=== PATIENT | female | born 1980 | race Caucasian/White ===

== ENCOUNTER → 2020-04-23 13:07 | Outpatient (BNVA) | payer OTHER, MEDICAID, SELFPAY | PROVIDERS: PCP Internal Medicine; Referring Provider Internal Medicine; Visit Provider Internal Medicine | DX: Z76.89 Persons encountering health services in other specified circumstances (principal) ==

== ENCOUNTER → 2020-05-13 08:38 | Outpatient (REF) | payer OTHER, MEDICAID, SELFPAY ==
--- NOTE | 2020-05-13 08:44 | CA_ITS ---
Transthoracic Echocardiogram Patient (Last, First, Middle): Abibe Salas, Gender: Female Date of : 1980 Age: 40 Procedure Date: 05/13/2020 Procedure Type: Transthoracic Echocardiogram Location: OP Height: 160.02 cm Weight: 83.92 kg BSA: 1.87 m2 Heart Rate: bpm BP: 122 / 80 mmHg Groundskeeping Maintenance: Maria Ines MD: Dinh Orlando MD Gas Mask Inspector: Terrence Louise MD Symptoms: R07.2 - Precordial pain Study Quality: Good ECG Rhythm: Sinus Conclusions: - Normal study Findings Left Ventricle Normal left ventricular size, thickness, and systolic function. The visually estimated ejection fraction is between 55-60%. Diastolic function is normal for age. Right Ventricle Normal right ventricular cavity size and systolic function. Atria Both atria are normal in size. There is no evidence of interatrial shunt. Aortic Valve Normal aortic valve structure and function. There is no aortic valve stenosis. There is no aortic valve regurgitation. Mitral Valve Normal mitral valve structure and function. There is trace mitral valve regurgitation. There is no mitral valve stenosis. Pulmonic Valve The pulmonic valve is likely normal. Tricuspid Valve Normal tricuspid valve structure. There is trace tricuspid valve regurgitation. The right ventricular systolic pressure is normal. The right ventricular systolic pressure is 25 mmHg. Normal right atrial pressure. There is no evidence of pulmonary hypertension. Great Vessels All visible segments of the aorta are normal in size. The pulmonary artery was not well visualized. Venous The inferior vena cava is normal in size and collapses greater than 50% with inspiration. Pericardium/Pleural There is no evidence of pericardial effusion. Prior Study Comparison No prior study available for comparison. Measurements 2D Linear Measurements RVIDd: 2.77 RVIDd Index: 1.48 IVSd: 0.78 0.6-0.9/0.6-1.0 cm LVIDd: 5.28 3.9-5.3/4.2-5.9 cm LVIDd Index: 2.82 2.4-3.2/2.2-3.1 cm/m2 LVIDs: 3.56 2.0-3.6 cm LVPWd: 1.16 0.7-1.1 cm Ao Root: 2.80 2.1-3.5 cm LA Diam: 4.30 2.7-3.8/3.0-4.0 cm LAIDs Index: 2.30 1.5-2.3 cm/m2 LV Mass: 237.69 67-162/88-224 g LV Mass Index: 127.10 43-95/49-115 g/m2 LVOT Diam: 2.00 3.0+(-)1.3 cm 2D Systolic Function EF 4C: 53.30 >55% EF 2C: 53.50 >55% EF BiP: 55.90 >55% Mitral Valve MV Pk E: 0.69 MV PK A: 0.68 MV Decel Time: 208.00 E/A: 1.00 E'Lateral: 8.92 E'Medial: 4.90 E/E' Med: 14.10 E/E' Lat: 7.80 Aortic Valve AoV Pk Scott: 1.25 AoV Mn Scott: 0.91 AoV VTI: 0.24 AoV Pk Grad: 6.00 Aov Mn Grad: 4.00 AICHA Cont.VTI: 1.98 LVOT LVOT Pk Scott: 0.77 LVOT Mn Scott: 0.58 LVOT VTI: 0.15 LVOT Pk Grad: 2.00 LVOT Mn Grad: 1.00 LVOT Diam: 2.00 LVOT Area: 3.14 Diastolic Function MV Pk E: 0.69 MV Pk A: 0.68 E/A: 1.00 E'Medial: 4.90 E/E' Med: 14.10 E' Laterial: 8.92 E/E' Lat: 7.80 Tricuspid Valve TR Pk Scott: 2.32 TR Pk Grad: 22.00 RA Press: 3.00 RVSP: 25.00 Great Vessels Aorta Ao Root-2D: 2.80 2.0-3.7 cm Ao Asc: 2.70 2.1-3.4 cm Ao Arch: 2.70 Updated in Other Vendor System with Status of Final Terrence Louise MD electronically signed on 05/13/2020 1:45:05 PM with status of Final
--- NOTE | 2020-05-13 08:44 | CA_ITS ---
Acquisition Time: 2020-05-13 09:10:47 Total Exercise Time: 00:08:23 Test Indications: chest pain Medications: Protocol: YI Max HR: 164 BPM 91% of Pred: 180 BPM Max BP: 156/088 mmHG Max Work Load: 10.1 METS Exercise stress test using Yi protocol, total of 8 min 23 sec. METS 10.1, MHR up to 90 %. Pt tolerated well, denies any anginal sx. EKG without any arrhythmias. No ischemic changes seen during exercise or in recovery period. Normotensive response to exercise. Test reviewed with Dr. Orlando. Referred By: Dinh Orlando Overread By: Ranjan Storm
== END ==
LOC: HO.CARD 08:38
PROVIDERS: Visit Provider Internal Medicine
DX: R07.2 Precordial pain (principal)
CPT/HCPCS: 93017; 93306

== ENCOUNTER → 2020-06-03 08:23 | Outpatient (BNVA) | payer OTHER, MEDICAID, SELFPAY | PROVIDERS: PCP Internal Medicine; Visit Provider Internal Medicine | DX: Z76.89 Persons encountering health services in other specified circumstances (principal) ==

== ENCOUNTER 2021-03-10 14:40 | Outpatient (REF) | payer OTHER, MEDICAID, SELFPAY ==
--- NOTE | ~2021-03-10 | MM_ITS ---
EXAMINATION: MM SCREENING DIGITAL BREAST TOMOSYNTHESIS, BILATERAL CLINICAL INFORMATION: Screening. Asymptomatic. The lifetime risk of breast cancer based on the Tyrer-Cuzick Model is 7.7%. COMPARISON: Mammography: None TECHNIQUE: Digital breast tomosynthesis is performed in both the craniocaudal and mediolateral oblique views along with computer-aided detection (CAD). Synthesized 2D images are generated from the tomosynthesis. FINDINGS: The breasts are heterogeneously dense, which may obscure small masses (ACR BI-RADS breast composition Category c). No suspicious abnormal dominant mass is of microcalcifications is seen within the right breast. Within the anterior superior aspect of the left breast there is a circumscribed density measuring approximately 1.0 x 0.8 cm in size. Ultrasound examination of this region is recommended. MM/MM tomosynthesis screening BI IMPRESSION: 1 cm circumscribed density anterior left breast for which ultrasound is recommended. ASSESSMENT: BI-RADS 0: Incomplete - Need Additional Imaging Evaluation RECOMMENDATION: Routine annual mammography screening. This patient's information was entered into a reminder system with a target due date for their next mammogram.
== END 2021-03-10 14:41 | disposition home or self-care (01) ==
LOC: HO.MAMMO 14:40
PROVIDERS: Visit Provider Internal Medicine
DX: Z12.31 Encounter for screening mammogram for malignant neoplasm of breast (principal)
CPT/HCPCS: 77063; 77067

== ENCOUNTER 2021-03-17 12:46 | Outpatient (REF) | payer OTHER, MEDICAID, SELFPAY ==
--- NOTE | ~2021-03-17 | US_ITS ---
EXAMINATION: US DIAGNOSTIC ULTRASOUND BREAST, LEFT CLINICAL INFORMATION: Recall from baseline mammography for 1 cm circumscribed nodule upper left breast. TC score 8%. COMPARISON: Baseline mammography 03/10/2021. TECHNIQUE: Ultrasound left breast is targeted to the upper outer quadrant. Grayscale imaging and color Doppler are performed without and with harmonics. FINDINGS: The nodularity on mammography corresponds to a simple cyst 2:00 position 4 cm from nipple measuring approximately 1.1 x 0.7 cm. This is anechoic with circumscribed morrison and increased through-transmission of sound. There is another simple cyst 2:00 position 6 cm away and measuring 0.6 cm. There is no focal suspicious finding. There is no solid mass or architectural abnormality. Results are discussed with the patient at time of visit. US/US breast LT limited IMPRESSION: There are 2 simple cysts upper outer left breast, larger measuring 1.1 cm. ASSESSMENT: BI-RADS 2: Benign RECOMMENDATION: Routine annual mammography screening. This patient's information was entered into a reminder system with a target due date for their next mammogram.
== END 2021-03-17 12:47 | disposition home or self-care (01) ==
LOC: HO.MAMMO 12:46
PROVIDERS: Visit Provider Internal Medicine
DX: R92.2 Inconclusive mammogram (principal)
CPT/HCPCS: 76642

== ENCOUNTER 2021-04-05 08:29 | Outpatient (REF) | payer OTHER, MEDICAID, SELFPAY ==
--- NOTE | ~2021-04-05 | XR_ITS ---
EXAMINATION: BILATERAL KNEE AP STANDING. LEFT KNEE 2 VIEWS. CLINICAL INFORMATION: Left knee pain COMPARISON: None TECHNIQUE: AP bilateral knees standing one view. Left knee 2 views. FINDINGS: AP BILATERAL KNEE: There is minimal loss of medial and lateral compartment joint space left knee and medial compartment right knee. No bony erosive changes, acute fracture or dislocation or subluxation seen. LEFT KNEE: There is no visible acute fracture, dislocation or subluxation. The patellofemoral compartment joint space is mildly reduced. No loose body seen. XR/XR knee standing BI IMPRESSION: Mild early degenerative changes involving medial and lateral compartment left knee and medial compartment right knee.
--- NOTE | ~2021-04-05 | XR_ITS ---
EXAMINATION: BILATERAL KNEE AP STANDING. LEFT KNEE 2 VIEWS. CLINICAL INFORMATION: Left knee pain COMPARISON: None TECHNIQUE: AP bilateral knees standing one view. Left knee 2 views. FINDINGS: AP BILATERAL KNEE: There is minimal loss of medial and lateral compartment joint space left knee and medial compartment right knee. No bony erosive changes, acute fracture or dislocation or subluxation seen. LEFT KNEE: There is no visible acute fracture, dislocation or subluxation. The patellofemoral compartment joint space is mildly reduced. No loose body seen. XR/XR knee LT 2V IMPRESSION: Mild early degenerative changes involving medial and lateral compartment left knee and medial compartment right knee.
== END 2021-04-05 08:30 | disposition home or self-care (01) ==
LOC: HO.HOSX 08:29
PROVIDERS: Visit Provider Physician Assistant
DX: M22.2X2 Patellofemoral disorders, left knee (principal)
CPT/HCPCS: 20610; 73560; 73565; J1040

== ENCOUNTER 2021-11-02 14:48 | Outpatient (REF) | payer OTHER, MEDICAID, SELFPAY ==
--- NOTE | ~2021-11-02 | MM_ITS ---
EXAMINATION: MM DIAGNOSTIC DIGITAL BREAST TOMOSYNTHESIS, LEFT US DIAGNOSTIC ULTRASOUND BREAST, LEFT CLINICAL INFORMATION: Pain upper outer left breast for one month, on and off. No palpable mass or discharge. Prior history cysts left breast. TC score 8%. COMPARISON: Mammography: 03/10/2021, targeted left breast ultrasound 03/17/2021. TECHNIQUE: Digital breast tomosynthesis is performed in both the craniocaudal and mediolateral oblique views along with computer-aided detection (CAD). Synthesized 2D images are generated from the tomosynthesis. Ultrasound left breast is targeted to the upper and outer breast. Grayscale imaging and color Doppler are performed without and with harmonics. FINDINGS: Mammography: There are scattered areas of fibroglandular density (ACR BI-RADS breast composition Category b). Parenchymal pattern is similar to prior study. There is a known cyst anterior upper outer left breast with smooth margins, slightly increased in size. There is no interval new dominant mass or architectural abnormality. No abnormal calcifications. The axilla is unremarkable. There is no coarsening of the Manish's ligaments. No skin thickening or retraction. Ultrasound: Ultrasound demonstrates cyst anterior upper outer left breast with circumscribed margins and increased through-transmission of sound measuring 1.3 x 0.9 cm. Prior measurements are 1.0 x 0.8 cm. There is also a small cyst anterior left breast 3:00 position measuring 0.5 x 0.3 cm. There is no cystic or solid mass in the area of patient symptoms. No skin thickening or edema tracking in soft tissue planes or focal duct ectasia. Results are discussed with the patient at time of visit. MM/MM tomosynthesis diagnostic LT IMPRESSION: -No mammographic or ultrasound evidence of malignancy or inflammatory changes. -2 simple cysts anterior left breast outside of the area of symptoms, larger measuring 1.3 x 0.9 cm and smaller measuring 0.5 x 0.3 cm. ASSESSMENT: BI-RADS 2: Benign RECOMMENDATION: 1. Patient's intermittent breast pain should based on the clinical impression. 2. Otherwise, routine annual screening mammography. This patient's information was entered into a reminder system with a target due date for their next mammogram.
== END 2021-11-02 14:49 | disposition home or self-care (01) ==
LOC: HO.MAMMO 14:48
PROVIDERS: PCP Internal Medicine; Visit Provider Internal Medicine
DX: N63.21 Unspecified lump in the left breast, upper outer quadrant (principal)
CPT/HCPCS: 76642; 77061; 77065

== ENCOUNTER 2022-03-16 14:17 | Outpatient (REF) | payer OTHER, MEDICAID, SELFPAY ==
--- NOTE | ~2022-03-16 | MM_ITS ---
EXAMINATION: MM SCREENING DIGITAL BREAST TOMOSYNTHESIS, BILATERAL CLINICAL INFORMATION: Screening. Asymptomatic. The lifetime risk of breast cancer based on the Tyrer-Cuzick Model is 8%. COMPARISON: Mammography: 11/02/2021, 03/10/2021 (baseline); Left breast ultrasound 03/17/2021 and 11/02/2021. TECHNIQUE: Digital breast tomosynthesis is performed in both the craniocaudal and mediolateral oblique views along with computer-aided detection (CAD). Synthesized 2D images are generated from the tomosynthesis. FINDINGS: There are scattered areas of fibroglandular density (ACR BI-RADS breast composition Category b). There are no significant masses, abnormal calcifications, or other abnormalities. No architectural abnormality. There is a smooth oval mass anterior upper outer left breast consistent with simple cyst on prior imaging. The axilla and skin contours are unremarkable. There are no significant changes. MM/MM tomosynthesis screening BI IMPRESSION: No mammographic evidence of malignancy. ASSESSMENT: BI-RADS 2: Benign RECOMMENDATION: Routine annual mammography screening. This patient's information was entered into a reminder system with a target due date for their next mammogram.
== END 2022-03-16 14:18 | disposition home or self-care (01) ==
LOC: HO.MAMMO 14:17
PROVIDERS: PCP Internal Medicine; Visit Provider Internal Medicine
DX: Z12.31 Encounter for screening mammogram for malignant neoplasm of breast (principal)
CPT/HCPCS: 77063; 77067

== ENCOUNTER 2023-03-29 14:16 | Outpatient (REF) | payer OTHER, MEDICAID, SELFPAY | END 2023-03-29 14:17 | disposition home or self-care (01) | LOC: HO.MAMMO 14:16 | PROVIDERS: PCP Internal Medicine; Visit Provider Internal Medicine | DX: Z12.31 Encounter for screening mammogram for malignant neoplasm of breast (principal) | CPT/HCPCS: 77063; 77067 ==

== ENCOUNTER → 2023-03-29 14:30 | Outpatient (BNV) | payer OTHER, MEDICAID, SELFPAY | PROVIDERS: PCP Internal Medicine; Visit Provider Radiology Diagnostic Radiology | DX: Z12.31 Encounter for screening mammogram for malignant neoplasm of breast (principal) | CPT/HCPCS: 77063; 77067 ==

== ENCOUNTER 2023-08-21 11:39 | Outpatient (REF) | payer OTHER, SELFPAY ==
--- NOTE | ~2023-08-21 | XR_ITS ---
EXAMINATION: XR ANKLE, RIGHT CLINICAL INFORMATION: Right ankle injury, pain COMPARISON: None available. TECHNIQUE: AP, lateral, and mortise views of the right ankle. FINDINGS: No fracture. Alignment is anatomic. No erosions. Joint spaces are maintained. Soft tissues are normal. XR/XR ankle RT min 3V IMPRESSION: Normal right ankle.
== END 2023-08-21 11:40 | disposition home or self-care (01) ==
LOC: HO.HHCX 11:39
PROVIDERS: Visit Provider Student in an Organized Health Care Education/Training Program
DX: S99.911A Unspecified injury of right ankle, initial encounter (principal)
CPT/HCPCS: 73610

== ENCOUNTER 2023-09-19 20:05 | Outpatient (REF) | payer OTHER, SELFPAY ==
--- NOTE | ~2023-09-19 | MR_ITS ---
EXAMINATION: MR ANKLE WITHOUT CONTRAST, RIGHT CLINICAL INFORMATION: Pain; patient reports rolled ankle. COMPARISON: X-ray the right ankle August 2023. TECHNIQUE: MRI of the ankle was performed using routine sequences on a high-field scanner. FINDINGS: Subcutaneous soft tissues: Normal. Muscles/tendons: Normal. Plantar fascia: Normal. Neurovascular structures/tarsal tunnel: Normal. Ligaments: Mild heterogeneity of the anterior talofibular ligament compatible with partial tear. Remaining ligaments normal. Bone/cartilage: Talocrural joint: There is subchondral cystic change along the apex of the lateral dome of the talus. This extends over 7 mm transverse and 10 mm AP. There is some minimal subchondral edema surrounding the area of cystic change. Findings compatible with an area of osteochondritis dissecans versus subchondral cystic change related to focal arthrosis. There is additional minimal bone marrow edema versus subchondral cystic change along the posterior rim of the central aspect of the posterior malleolus indicative of minimal focal arthrosis of evolving subchondral contusion. Joint is otherwise unremarkable there is no effusion or loose bodies. Remaining bone and joints are normal. MR/MR ankle RT wo con IMPRESSION: 1. Partial tear of the anterior talofibular ligament. 2. Focal arthrosis versus osteochondritis dissecans along the apex of the lateral dome of the talus. 3. Minimal arthrosis versus evolving subchondral contusion along the posterior rim of the posterior malleolus.
== END 2023-09-19 20:06 | disposition home or self-care (01) ==
LOC: HO.MRI 20:05
PROVIDERS: PCP Internal Medicine; Visit Provider Student in an Organized Health Care Education/Training Program
DX: S93.491A Sprain of other ligament of right ankle, initial encounter (principal)
CPT/HCPCS: 73721

== ENCOUNTER 2023-10-03 08:57 | Outpatient (REF) | payer OTHER, MEDICAID, SELFPAY ==
[2023-10-03 14:27] LABS: Appearance Urine Cloudy; Color Urine Dark Yellow; Glucose Urine UA Negative (Negative); Leukocyte Esterase Urine Negative (Negative); Nitrite Urine Negative (Negative); PH 5.5 (5.0-9.0); Specific Gravity - Urine >= 1.030 (1.005-1.025); Urine Blood Negative (Negative); Urine Ketones Negative (Negative); Urine Protein Trace mg/dL (Neg-Trace)
[2023-10-03 14:30] LABS: Bacteria Urine 3+ (None Seen); Hyaline Casts Urine 0-2 /LPF (0-2); RBC Urine 0-2 /HPF (0-2); WBC Urine 0-5 /HPF (0-5)
[2023-10-04 08:27] LABS: HIV AB/AG Nonreactive (Nonreactive); HIV Num 1 0.06 S/CO (0.00-0.99)
[2023-10-04 10:29] LABS: RPR Rapid Plasma Reagin NON-REACTIVE (NON-REACTIVE)
== END 2023-10-03 08:58 | disposition home or self-care (01) ==
LOC: HO.CHCLDS 08:57
PROVIDERS: Visit Provider Internal Medicine
DX: Z11.4 Encounter for screening for human immunodeficiency virus [HIV] (principal); N76.0 Acute vaginitis
CPT/HCPCS: 36415; 81001; 81513; 86592; 87389

== ENCOUNTER 2024-01-26 14:00 | Outpatient (REF) | payer OTHER, MEDICAID, SELFPAY ==
[2024-01-26 15:49] LABS: Bacterial Vaginosis PCR NEGATIVE (Negative); Candida Group PCR DETECTED (Not Detect); Candida glab krusei PCR NOT DETECTED (Not Detect); Trichomonas vaginalis PCR NOT DETECTED (Not Detect)
[2024-01-26 16:17] LABS: CT PCR NOT DETECTED (Not Detect.); NG PCR NOT DETECTED (Not Detect.)
== END 2024-01-26 14:01 | disposition home or self-care (01) ==
LOC: HO.CHCLNP 14:00
PROVIDERS: Visit Provider Pediatrics
DX: N76.0 Acute vaginitis (principal)
CPT/HCPCS: 0352U; 87491; 87591

== ENCOUNTER 2024-02-08 08:35 | Outpatient (REF) | payer OTHER, MEDICAID, SELFPAY ==
[2024-02-08 14:21] LABS: MANUAL DIFF FLAG NO
[2024-02-08 14:37] LABS: Basophils Percent Auto 0.4 % (0-2); Eosinophils Absolute Auto 0.1 X10*3/uL (0.0-0.4); Eosinophils Percent Auto 1.1 % (0-4); Imm Gran Abs Auto 0.02 X10*3/uL (0.00-0.03); Imm Gran Pct Auto 0.3 % (0.0-0.4); Lymphocytes Absolute Auto 1.5 X10*3/uL (1.2-4.9); Mean Corpuscular HGB Conc 34.1 g/dl (31.0-35.0); Mean Corpuscular Volume 90.7 fL (80.0-98.0); Mean Platelet Volume 11.4 fL (9.4-12.3); Monocytes Absolute Auto 0.5 X10*3/uL (0.1-1.2); Monocytes Percent Auto 6.6 % (2-11); Neutrophils Absolute Auto 5.5 x10*3/uL (2.0-8.3); Neutrophils Percent Auto 71.6 % (45-73); Platelet Count 228 X10*3/uL (160-400); Red Blood Count 4.52 X10*6/uL (4.20-5.50); Red Cell Distribution Width 13.1 % (11.0-16.0); White Blood Count 7.6 X10*3/uL (4.8-10.8)
[2024-02-08 14:58] LABS: Alanine Aminotransferase 24 U/L (0-31); Albumin Level 3.8 g/dL (3.5-5.0); Alkaline Phosphatase 78 U/L (39-117); Anion Gap 14 (12-20); Aspartate Amino Transferase 14 U/L (5-31); Bilirubin Total 0.6 mg/dL (0.0-1.0); Blood Urea Nitrogen 13 mg/dL (9-16); Calcium 9.4 mg/dL (8.4-10.2); Carbon Dioxide 27 mmol/L (22-29); Chloride 106 mmol/L (96-108); Cholesterol 154 mg/dL (<200); Estimated Glomerular Filt Rate > 60; Glucose Random 72 mg/dL (60-115); HDL Cholesterol 49 mg/dL (>40); LDL Cholesterol Calculated 89 mg/dL (<100); Potassium 3.9 mmol/L (3.3-5.1); Sodium 143 mmol/L (135-145); TSH reflex Free T4 1.19 uIU/mL (0.32-4.0); Total Protein 6.2 g/dL (6.5-8.0); Triglycerides 83 mg/dL (<150); Vitamin D 25-OH Total 30.8 ng/mL (>30)
[2024-02-08 15:15] LABS: Folate 3.3 ng/mL (> or = 4.0); Vitamin B12 258 pg/mL (200-900)
[2024-02-09 08:12] LABS: HIV AB/AG Nonreactive (Nonreactive); HIV Num 1 0.07 S/CO (0.00-0.99)
[2024-02-09 08:31] LABS: Syphilis Screen Nonreactive (Nonreactive)
[2024-02-12 13:18] LABS: HCV Log PCR <1.18 NOT DETECTED Log IU/mL (NOT DETECTED); HepC Viral Load <15 NOT DETECTED IU/mL (NOT DETECTED)
== END 2024-02-08 08:36 | disposition home or self-care (01) ==
LOC: HO.CHCLDS 08:35
PROVIDERS: Visit Provider Internal Medicine
DX: Z00.00 Encounter for general adult medical examination without abnormal findings (principal); E55.9 Vitamin D deficiency, unspecified; F41.1 Generalized anxiety disorder
CPT/HCPCS: 36415; 80053; 80061; 82306; 82607; 82746; 84443; 85025; 86780; 87389; 87522

== ENCOUNTER 2024-03-18 11:05 | Emergency (ER) | payer OTHER, MEDICAID, SELFPAY ==
--- NOTE | ~2024-03-18 | CT_ITS ---
EXAMINATION: CT CERVICAL SPINE WITHOUT CONTRAST CLINICAL INFORMATION: Trauma. COMPARISON: None available. TECHNIQUE: Noncontrast computed tomography of the cervical spine was performed. This CT examination was performed using dose optimization techniques as appropriate, variously including the following: *Automated exposure control *Adjustment of mA and/or kV according to patient size (this includes techniques or standardized protocols for targeted exams where dose is matched to indication/reason for exam; i.e. extremities or head) *Use of iterative reconstruction technique DLP: 377 mGy-cm FINDINGS: Cervical spinal alignment is anatomic in the sagittal projection. The vertebral bodies demonstrate preserved stature. There is mild degenerative disc disease at C6-7. There is a small disc osteophyte complex at this level. The atlantooccipital articulations are intact. The C1-C2 relationship is intact. The dens is intact. There is no acute fracture. Prevertebral soft tissue is normal in appearance. Paraspinal soft tissue is normal in appearance. The thyroid gland is normal in appearance. The lung apices are clear. CT/CT cervical spine wo IV con IMPRESSION: No acute osseous cervical spine abnormality. Fleischner guidelines were followed. Electronically signed by: Tavon Cotton DO 03/18/2024 12:45 PM EDT
--- NOTE | ~2024-03-18 | CT_ITS ---
EXAMINATION: CT HEAD WITHOUT CONTRAST CLINICAL INFORMATION: Trauma. COMPARISON: None available. TECHNIQUE: Contiguous axial imaging was performed from the skull base to vertex without intravenous administration of contrast. This CT examination was performed using dose optimization techniques as appropriate, variously including the following: *Automated exposure control *Adjustment of mA and/or kV according to patient size (this includes techniques or standardized protocols for targeted exams where dose is matched to indication/reason for exam; i.e. extremities or head) *Use of iterative reconstruction technique DLP: 1082 mGy-cm FINDINGS: There is no acute intracranial hemorrhage. There is no evidence of acute/subacute cerebral or cerebellar infarction. There is no midline shift or mass effect. No extra-axial fluid collection. The ventricles are normal in size. The orbits are symmetric and within normal limits. The calvarium is intact. Paranasal sinuses and mastoid air cells are clear. CT/CT head/brain wo IV con IMPRESSION: No acute intracranial pathology. Electronically signed by: Tavon Cotton DO 03/18/2024 12:38 PM EDT
[2024-03-18 11:22] VITALS: BP 165/106; PULSE 64; RESP 16; TEMP 36.6; O2SAT 99; BMI 30.4
--- NOTE | 2024-03-18 11:27 | ED.GENADULT ---
HPI - General Adult General Chief complaint: Head Injury Stated complaint: Concussion Time Seen by Provider: 03/18/24 13:44 Source: patient, family, RN notes reviewed and old records reviewed Mode of arrival: ambulatory Limitations: no limitations History of Present Illness ED Provider: Antonina Truong PA-C HPI narrative: 44 yo F with a past medical history of HTN, precordial chest pain, patellofemoral syndrome of the left knee presents to the ED c/o headache, lightheadedness/dizziness, nausea, & right sided neck pain s/p colliding with another player at softball game yesterday afternoon. Patient reports feelings lightheaded immediately after the collision, followed by tunnel vision, denies LOC. Reports a dull pressure located behind the right eye & photophobia. numbness/tingling, paresthesia, blurry vision, double vision, vomiting, fever, chills, and seizures. Denies taking AC Onset (ago): day(s) Related Data Home Medications ?Medication ?Instructions ?Recorded ?Confirmed etonogestrel 68 mg subdermal subdermal 04/23/20 06/03/20 implant (Nexplanon) ibuprofen 800 mg tablet 800 mg PO BID PRN pain 04/23/20 06/03/20 valacyclovir 1 gram tablet 1,000 mg PO Q8H 04/23/20 06/03/20 Previous Rx's ?Medication ?Instructions ?Recorded acetaminophen 500 mg tablet 500 mg PO Q6H PRN fever or pain 03/18/24 (Tylenol Extra Strength) #14 tabs cyclobenzaprine 5 mg tablet 5 mg PO Q8H PRN pain (scale score 03/18/24 7-10) 5 days #14 tabs lidocaine 5 % topical patch 1 patch topical DAILY PRN pain #30 03/18/24 (Lidoderm) ea naproxen 500 mg tablet 500 mg PO BID PRN pain 10 days #20 03/18/24 tabs Allergies Allergy/AdvReac Type Severity Reaction Status Date / Time No Known Allergies Allergy Verified 03/18/24 11:25 Review of Systems Review of Systems: Yes all other systems are reviewed and are negative Constitutional: Constitutional: Reports as per HPI Eyes: Eyes: Reports photophobia Neurologic: Denies Abnormal speech present PMFSH Past Medical History Attestation statement: The following information was validated with the patient. Source: old records reviewed Surgical History History of incision and drainage (~2010) History of cone biopsy of cervix (~2005) History of cholecystectomy (~2001) Family History Family History Father No problems noted. Mother Prehypertension Social History Social History Advance Directives: No Advance Directives Information Provided: No Current occupational status: employed Current occupation: rt handed/[employer] Physical Exam ED Vital Signs: Vital Signs - 24 hr 03/18/24 11:22 03/18/24 14:49 Temperature 97.8 F 97.8 F Pulse Rate 64 64 Respiratory Rate 16 16 Blood Pressure 165/106 H 165/106 H Pulse Oximetry 99 99 Oxygen Delivery Method Room Air Room Air BMI result Body Mass Index 30.4 Const General: cooperative, healthy appearing and no acute distress Orientation/consciousness: patient oriented x3 Limitations: no limitations HENMT Head: Yes normal to inspection, No Hart's sign and No raccoon eyes Ears: hearing grossly normal bilaterally General nose exam: Normal external nose present Face and sinus: Yes normal facial exam Mouth: Normal oral and palatal mucosa present Throat: Yes posterior oropharynx normal, Yes tonsils normal, Yes uvula midline, No peritonsillar mass, No uvula laterally displaced and No uvular edema Eyes General: appearance normal, both eyes and all related structures Pupils: Equal, round and reactive pupils present EOM: EOMs intact bilaterally Direct Ophthalmoscopy: photophobia Neck Other: +neck stiffness appreciated. Mild tenderness to palpation to right paraspinal region. +right trapezius muscle ttp. Limited range of motion due to pain. No edema, ecchymosis, palpable abnormalities noted. No midline ttp Neck: Yes normal visual inspection and Yes no meningeal signs Resp Effort & Inspection: normal respiratory effort and no respiratory distress Auscultation: clear to auscultation bilaterally Cardio Rate: regular rate Heart sounds: S1 normal heart sound present and S2 normal heart sound present GI Inspection: Yes normal to inspection Palpation (GI): Soft to palpation, nontender, no guarding and not rigid General: Yes no CVA tenderness Back/Spine/Pelvis Other: No midline cervical/thoracic/lumbar spinous tenderness/step-off or deformity Back: no CVA tenderness Skin Rashes: no rashes Wounds: no wounds Neuro General: patient oriented x3, gait normal, tone normal, moves all extremities, no meningeal signs, no focal motor deficits and CN's II-XI intact bilaterally Cranial nerves: Yes CN's II-XII intact bilaterally and Yes Equal, round and reactive pupils present Cognition (Neuro): normal cognition Speech: No Abnormal speech present Gait exam (Neuro): Normal gait present Motor exam (neuro): 5/5 motor strength present throughout Extrem General: Yes normal to inspection Course Course Course Narrative: RME, this is a rapid medical exam performed by Rich Arroyo please refer to primary provider for complete H&P- 44-year-old female presents right-sided headache, nausea and neck pain a collision during a softball game yesterday. She reports that she saw stars and had tunnel vision. She reports associated nausea and lightheadedness today. Plan for CT imaging CT head/brain wo IV con IMPRESSION: No acute intracranial pathology. CT cervical spine wo IV con IMPRESSION: No acute osseous cervical spine abnormality. Fleischner guidelines were followed. >Plan for muscle relaxant and naproxen as needed for pain and neck stiffness, brain rest/concussion precautiona Results discussed with patient including worrisome signs and symptoms and strict return precautions, and when to return to the emergency department. They verbalized understanding and feel safe for discharge at this time. Medical Decision Making Medical Decision Making [facility] Narrative: 44 yo F with a past medical history of HTN, precordial chest pain, patellofemoral syndrome of the left knee presents to the ED c/o headache, lightheadedness/dizziness, nausea, & right sided neck pain s/p colliding with another player at softball game yesterday afternoon. On exam, vital signs stable, nontoxic appearing, no midline spinous tenderness, neurovascularly intact, + mild tenderness elicited on palpation to paraspinous aspect of the right neck. Limited range of motion. No edema, ecchymosis, palpable abnormalities noted. Concern for concussion, intracranial injury, cervical spine injury, migraine/headache disorder. Plan: Head/C-spine CT, pain control Differential Diagnosis Differential Diagnoses: The differential diagnosis associated with the presentation includes As above Admission/Observation Consideration of admission/observation: Escalation of care including admission/observation considered Lab Data [facility] Lab Attestation statement: I reviewed the patient's lab results. Independent Interpretation I performed an independent interpretation of an: CT Scan Radiology Impression Discussion of test interpretation with radiology: I have reviewed the radiologist's reading. Independent Historian Clinical information obtained from an independent historian. History obtained from or confirmed by: Other (daughter) External Record Review External record reviewed: Inpatient record, Office record, Outpatient record, Prior outpatient labs, Prior outpatient radiology, Primary care record and Outside ED record Tests considered The following testing was considered but not selected: As above Prescription Management I considered prescription management with: Pain Medication Discharge Plan Discharge Clinical Impression: Closed head injury, Concussion without loss of consciousness Patient Disposition: Home, Self-Care Instructions: Concussion (ED) Additional Instructions: Your head and neck CT scans were unremarkable. You likely have a concussion as well as a muscle strain Please practice brain rest. Avoid bright lights, screen time If her headache persists or worsens, you persistent or worsening nausea/vomiting, weakness, vision change or loss her to the ED Flexeril is a muscle relaxer, take at night as it makes you drowsy, do not drive, drink alcohol, or operate machinery while taking it Naproxen as an anti-inflammatory / pain medication, take with food Lidoderm patches are numbing patches, apply to painful area In addition take Tylenol at home If symptoms persist or worsen, pain becomes unbearable, you developed urinary retention or incontinence, or weakness return to the ED Prescriptions: New acetaminophen [Tylenol Extra Strength] 500 mg tablet 500 mg PO Q6H PRN (Reason: fever or pain) Qty: 14 0RF lidocaine [Lidoderm] 5 % adhesive patch,medicated 1 patch topical DAILY MDD remove after 12 hours PRN (Reason: pain) Qty: 30 0RF Rx Instructions: leave on most painful area for up to 12 hrs naproxen 500 mg tablet 500 mg PO BID PRN (Reason: pain) 10 Days Qty: 20 0RF cyclobenzaprine 5 mg tablet 5 mg PO Q8H PRN (Reason: pain (scale score 7-10)) 5 Days Qty: 14 0RF No Action Nexplanon 68 mg implant subdermal valacyclovir 1 gram tablet 1,000 mg PO Q8H ibuprofen 800 mg tablet 800 mg PO BID PRN (Reason: pain) Referrals: [facility] [Outside] Tiffany Morales MD [Primary Care Provider] - 5 days Stand Alone Forms: Work/School Release Interventions: ED Discharge Assessment Last Done: 03/18/24 14:49 Discharge Date/Time: 03/18/24 14:50 Print Language: Vietnamese
--- OUTSIDE RECORDS SUMMARY | 2024-03-18 14:08 | XMS_ITS | Continuity of Care Document ---
Author Organization [facility] Address [address] [place] [address]- Care Team Providers Care Decorating And Assembly Supervisor Name Role Phone Andrew ROMAN, Tiffany Primary Care Physician [facility]counter [facility] Date(s): 02/10/22 - 02/11/[address] [id number] Encounter Diagnosis Nephrolithiasis(Final) - 02/10/22 Discharge Disposition: A-D/C Home Attending Physician: Broderick Guzman MD Admitting Physician: Taniya Marroquin DO Referring Physician: Not on Staff, Referring MD Allergies, Adverse Reactions, Alerts No Known Allergies Immunizations Given and Recorded Vaccine Date Status Refusal Reason tetanus/diphtheria/pertussis, acel(Tdap) 09/29/21 Recorded tetanus/diphtheria/pertussis, acel(Tdap) 10/10/11 Recorded SARS-CoV-2 (COVID-19) mRNA-1273 vaccine 05/08/21 R ecorded SARS-CoV-2 (COVID-19) mRNA-1273 vaccine 07/17/20 R ecorded SARS-CoV-2 (COVID-19) mRNA-1273 vaccine 06/17/20 R ecorded influenza virus vaccine, inactivated 03/11/21 Jaguar rded influenza virus vaccine, inactivated 03/18/20 Jaguar rded influenza virus vaccine, inactivated 02/27/19 Jaguar rded influenza virus vaccine, inactivated 02/28/18 Jaguar rded influenza virus vaccine, inactivated 03/02/16 Jaguar rded influenza virus vaccine, inactivated 02/25/15 Jaguar rded influenza virus vaccine, inactivated 05/04/06 Give n influenza virus vaccine, inactivated 80 Jaguar rded Botulinum Toxin Type A Vacc (oldterm) 1 06/19/20 R ecorded Tet/diphth/pertussis, acel (oldterm) 2 10/10/11 Gi lisa 1Result Comment: phizer -both vaccines and 1 booster given 2Admin Note: 07.12.11 VIS Given. Medications Flomax 0.4 mg oral capsule 0.4 mg, 1, capsule, By Mouth, Daily, # 14 capsule, Refills 0, Tot. Refills 0, Maintenance, :32:00 EDT, Route to Pharmacy Electronically, [facility], Partial fill upon patient request if the prescription is for a schedule II opi... Start Date: 02/25/22 Stop Date: 03/11/22 Status: Ordered hydrochlorothiazide 12.5 mg oral tablet 1 tablet = 12.5 mg, By Mouth, Daily, Maintenance, 02/10/22 15:29:00 EDT, Tablet, ; Start Date: 02/10/22 Status: Ordered Mirena 52 mg intrauterine device 1 each = 52 mg, Once, Maintenance, 02/10/22 15:28:00 EDT, ; Start Date: 02/10/22 Status: Ordered ondansetron 4 mg oral tablet 1 tablet = 4 mg, By Mouth, Every 8 hours, PRN Nausea & Vomiting, # 10 tablet, 0 Refills, Maintenance, 02/11/22 8:38:00 EDT, Tablet, [facility] 3, Partial fill upon patient request if the prescription is for a schedule II opioid drug., 160,... Start Date: 02/11/22 Status: Ordered oxybutynin 5 mg oral tablet 1 tablet = 5 mg, By Mouth, 3 times a day, PRN for urinary discomfort, # 30 tablet, 0 Refills, Maintenance, 02/11/22 8:38:00 EDT, Tablet, [facility], Partial fill upon patient request ifthe prescription is for a schedule II opioid drug.,... Start Date: 02/11/22 Status: Ordered oxyCODONE 5 mg oral tablet 5 mg, 1, tablet, By Mouth, Every 6 hours, PRN, for 3 days, # 12 tablet, Refills 0, Tot. Refills 0, Acute 02/17/22 8:31:00 EDT, Pain , Severe, 02/14/22 8:31:00 EDT, Route to Pharmacy Electronically, [facility], Partial fill upon patient r... Start Date: 02/14/22 Stop Date: 02/17/22 Status: Ordered valACYclovir 500 mg oral tablet 1,000 mg, 2, tablet, By Mouth, Every 8 hours, PRN, Maintenance, as needed, 02/10/22 15:30:00 EDT, ; Start Date: 02/10/22 Status: Ordered Problem List Condition Effective Dates Status Health Status Inform ant Anxiety(Confirmed) Active Depression(Confirmed) Active Hypertension(Confirmed) Active Mastitis NOS(Confirmed) 07/12/10 Active Obese class I(Confirmed) Active Vital Signs Most recent to oldest [Reference Range]: 1 2 3 Height 160 cm (02/11/22 8:11 AM) 160 cm (02/11/22 12:15 AM) 160 cm (02/10/22 10:00 PM) Weight 80.5 kg (02/11/22 5:30 AM) 80.5 kg (02/10/22 10:00 PM) 80.5 kg (02/10/22 9:57 PM) Oxygen Saturation [94-100 %] 97 % (02/11/22 9:00 AM) 100 % (02/11/22 8:11 AM) 100 % (02/11/22 12:15 AM) Pulse Rate [55-90 bpm] 59 bpm (02/11/22 9:00 AM) 61 bpm (02/11/22 8:11 AM) 55 bpm (02/11/22 12:15 AM) Body Mass Index [18.5-24.99] 31.45 *>HHI* (02/10/22 10:00 PM) 32.03 *>HHI* (02/10/22 4:50 PM) Blood Pressure [90-138/55-84 mm Hg] 129/73mm Hg (02/11/22 9:00 AM) 113/60mm Hg (02/11/22 8:11 AM) 125/69mm Hg (02/11/22 12:15 AM) Respiratory Rate [16-30 br/min] 18 br/min (02/11/22 9:00 AM) 18 br/min (02/11/22 8:11 AM) 18 br/min (02/11/22 12:15 AM) Temperature [96.8-100.4 DegF] 98.1 DegF (02/11/22 9:00 AM) 98.6 DegF (02/11/22 8:11 AM) 97.8 DegF (02/11/22 12:15 AM) Mode of Delivery (Oxygen) Room air (02/11/22 9:00 AM) Room air (02/11/22 8:11 AM) Room air (02/11/22 12:15 AM) Blood pressure sites Arm, left (02/11/22 9:00 AM) Arm, left (02/11/22 8:11 AM) Arm, left (02/11/22 12:15 AM) Temperature Route Oral (02/11/22 9:00 AM) Oral (02/11/22 8:11 AM) Oral (02/11/22 12:15 AM) Dry Weight 80.5 kg (02/10/22 10:00 PM) 82 kg (02/10/22 4:50 PM) 82 kg (02/10/22 10:15 AM) Weight Obtained Via Standing scale (02/11/22 5:30 AM) Standing scale (02/10/22 9:57 PM) Social History Social History Type Response Smoking Status Never smoker entered on: 07/31/13 Sex Care Team Personnel Name: Tiffany Morales MD Address: [address] [place] [id number]
--- OUTSIDE RECORDS SUMMARY | 2024-03-18 14:08 | XMS_ITS | Continuity of Care Document ---
Author Organization [facility] [employer] Address [address], [address]t [place] [address]- Care Team Providers Care Treasury Director Name Role Phone Tiffany Morales MD Primary Care Physician [place] [facility] [place] [facility] [place] [id number] Date(s): 06/29/21 - 07/29/21 [facility] [address], 4th [address] [place], [place] [address] Attending Physician: George Trujillo Admitting Physician: AdmGeorge iyer Referring Physician: Admtr, ArKendrick Allergies, Adverse Reactions, Alerts No Known Allergies Immunizations Given and Recorded Vaccine Date Status Refusal Reason Tet/diphth/pertussis, acel (oldterm) 1 10/10/11 Gi lisa influenza virus vaccine, inactivated 05/04/06 Give n 1Admin Note: 07.12.11 VIS Given. Medications Nexplanon 68 mg subcutaneous implant 1 each = 68 mg, Subcutaneous Infusion, Once, 0 Refills, Maintenance, 10/29/17 22:16:48 EDT Start Date: 10/29/17 Status: Ordered Problem List Condition Effective Dates Status Health Status Inform ant Anxiety(Confirmed) Active Depression(Confirmed) Active Mastitis NOS(Confirmed) 07/12/10 Active Social History Social History Type Response Smoking Status Never smoker entered on: 07/31/13 Sex
--- OUTSIDE RECORDS SUMMARY | 2024-03-18 14:08 | XMS_ITS | Continuity of Care Document ---
Author Organization [facility] [employer] Address [address], 4t [place] [address]- Care Team Providers Care Human Resources Manager Name Role Phone Andrew ROMAN, Tiffany Primary Care Physician [id number] Date(s): 05/04/21 - 07/29/21 [facility] [address], 4th [place] [address]- Attending Physician: Lori [place] MD Referring Physician: Clarissa Bush CNM Allergies, Adverse Reactions, Alerts No Known Allergies [...]
--- OUTSIDE RECORDS SUMMARY | 2024-03-18 14:08 | XMS_ITS | Continuity of Care Document ---
Author Organization [facility] [employer] Address [address], 4t [place] [address]- Care Team Providers Care Equal Opportunity Director Name Role Phone Tiffany Morales MD Primary Care Physician [phone] Encounter [facility] ACCT R [id number] Date(s): 06/29/22 - 07/29/22 [facility] [address], 4th [address] [place], [place] [address] Attending Physician: Admshireen, George Admitting Physician: Admtr, George Referring Physician: Admtr, Ar8 Allergies, Adverse Reactions, Alerts No Known Allergies [...] given 2Admin Note: 07.12.11 VIS Given. Medications hydrochlorothiazide 12.5 mg oral tablet 1 tablet = 12.5 mg, By Mouth, Daily, Maintenance, 02/10/22 15:29:00 EDT, Tablet, ; Start Date: 02/10/22 Status: Ordered Problem List Condition Confirmation Course Effective Dates Status Health St atus Informant Anxiety Confirmed Active Depression Confirmed Active Hypertension Confirmed Active Mastitis NOS Confirmed 07/12/10 Active Obese class I Confirmed Active Social History Social History Type Response Smoking Status Never smoker entered on: 07/31/13 Sex Patient Care team information Care Team Personnel Name: Andrew ROMAN , Tiffany Position: [facility] Outreach Member Role: PCP Address: Address: [address] [place] [address]- Care Team Related Persons Name: SANDRA WILBURN Address: home [address] [address] Name: NICK FLORES Address: home [address] [place] [address]
--- OUTSIDE RECORDS SUMMARY | 2024-03-18 14:08 | XMS_ITS | Continuity of Care Document ---
Author Organization [facility] Address [address] [place] [address]- Care Team Providers Care Diet Aid Name Role Phone Andrew ROMAN, Tiffany Primary Care Physician Encounter [facility] Date(s): 03/31/21 - 04/30/[address] [id number] Allergies, Adverse Reactions, Alerts Substance Reaction Severity Status NKA Active Immunizations Given and Recorded Vaccine Date Status [...]
--- OUTSIDE RECORDS SUMMARY | 2024-03-18 14:08 | XMS_ITS | Continuity of Care Document ---
Author Organization [facility] Address [address] [place] [address]- Care Team Providers Care Claim Technician Name Role Phone Andrew ROMAN, Tiffany Primary Care Physician [place] [facility] Date(s): 04/09/20 - 07/30/[address] [address] Attending Physician: Tiffany Morales MD Admitting Physician: Andrew ROMAN , Tiffany Referring Physician: Tiffany Morales MD Allergies, Adverse Reactions, Alerts Substance Reaction Severity [...]
--- OUTSIDE RECORDS SUMMARY | 2024-03-18 14:08 | XMS_ITS | Continuity of Care Document ---
Author Organization [facility] Address [address] [place] [address]- Care Team Providers Care Assembler Mechanical Ordnance Name Role Phone Andrew ROMAN, Tiffany Primary Care Physician Encounter [facility] Date(s): 04/07/22 - 06/08/[address] [address] Attending Physician: Glenn Adams MD Admitting Physician: Glenn Adams MD Referring Physician: Glenn Adams MD Allergies, Adverse Reactions, Alerts No Known [...] capsule, Refills 0, Tot. Refills 0, Maintenance, 228:32:00 EDT, Route to Pharmacy Electronically, [facility], Partial fill upon patient request if [...] 0 Refills, Maintenance, 02/11/22 8:38:00 EDT, Tablet, [facility], Partial fill upon patient request if the prescription is for a schedule II opioid drug., 160,... Start Date: 02/11/22 Status: Ordered oxybutynin 5 mg oral tablet 1 tablet = 5 mg, By Mouth, 3 times a day, PRN for urinary discomfort, # 30 tablet, 0 Refills, Maintenance, 02/11/22 8:38:00 EDT, Tablet, [facility] 3, Partial fill upon patient request ifthe prescription is for a schedule II opioid drug.,... Start Date: 02/11/22 Status: Ordered valACYclovir 500 mg oral tablet [...] Response Smoking Status Never smoker entered on: 2/12/14 Sex Patient Care team information Care Team Personnel Name: Tiffany Morales MD Position: [facility] Outreach Member Role: PCP Address: Address: [address] [place] [address]- Care Team Related Persons Name: SANDRA WILBURN Address: home [address] [address] Name: NICK FLORES Address: home [address] [place] [address]
--- OUTSIDE RECORDS SUMMARY | 2024-03-18 14:08 | XMS_ITS | Continuity of Care Document ---
Author Organization [facility] Address [address] [place] [address]- Care Team Providers Care Call Person Name Role Phone Andrew ROMAN, Tiffany Primary Care Physician [place] [facility] Date[place]s): 10/18/22 - 11/18/[address] [address] Attending Physician: Tiffany Morales MD Admitting Physician: Tiffany Morales MD Referring Physician: Tiffany Morales MD Allergies, Adverse Reactions, Alerts No Known [...] Personnel Name: Andrew ROMAN , Tiffany Position: [facility] Outreach Member Role: PCP Address: Address: [address] [place] [address]- Care Team Related Persons Name: SANDRA WILBURN Address: home [address] [address] Name: NICK FLORES Address: home [address] [place] [address]
[2024-03-18 14:49] VITALS: BP 165/106; PULSE 64; RESP 16; TEMP 36.6; O2SAT 99
== END 2024-03-18 14:50 | disposition home or self-care (01) ==
PROVIDERS: Emergency Provider Emergency Medicine; PCP Internal Medicine
DX: S09.90XA Unspecified injury of head, initial encounter (principal); S06.0X0A Concussion without loss of consciousness, initial encounter; W03.XXXA Other fall on same level due to collision with another person, initial encounter; Y93.64 Activity, baseball; Y92.320 Baseball field as the place of occurrence of the external cause; Y99.9 Unspecified external cause status
CPT/HCPCS: 70450; 72125; 99282; 99284

== ENCOUNTER 2024-04-10 14:18 | Outpatient (REF) | payer OTHER, MEDICAID, SELFPAY ==
--- NOTE | ~2024-04-10 | MM_ITS ---
EXAMINATION: MM SCREENING DIGITAL BREAST TOMOSYNTHESIS, BILATERAL CLINICAL INFORMATION: Screening. Asymptomatic. COMPARISON: Mammography: Comparison is made with available priors TECHNIQUE: Digital breast mammography with tomosynthesis is performed in both the craniocaudal and mediolateral oblique views along with computer-aided detection (CAD). FINDINGS: The breasts are heterogeneously dense, which may obscure small masses (ACR BI-RADS breast composition Category c). There are no significant masses, abnormal calcifications, or other abnormalities. MM/MM tomosynthesis screening BI IMPRESSION: No mammographic evidence of malignancy. ASSESSMENT: BI-RADS BI-RADS 1 - Negative RECOMMENDATION: Routine annual mammography screening. 1 year F/U This examination should not preclude the clinical evaluation of a suspicious palpable abnormality. This patient's information was entered into a reminder system with a target due date for their next mammogram. Electronically signed by: Haylee Cabral DO 04/22/2024 04:15 PM CONY
== END 2024-04-10 14:19 | disposition home or self-care (01) ==
LOC: HO.MAMMO 14:18
PROVIDERS: PCP Internal Medicine; Visit Provider Internal Medicine
DX: Z12.31 Encounter for screening mammogram for malignant neoplasm of breast (principal)
CPT/HCPCS: 77063; 77067

== ENCOUNTER → 2024-04-10 14:30 | Outpatient (BNV) | payer OTHER, MEDICAID, SELFPAY | PROVIDERS: PCP Internal Medicine; Visit Provider Internal Medicine | DX: Z12.31 Encounter for screening mammogram for malignant neoplasm of breast (principal) | CPT/HCPCS: 77063; 77067 ==

== ENCOUNTER 2024-11-05 14:24 | Outpatient (REF) | payer OTHER, MEDICAID, SELFPAY ==
--- OUTSIDE RECORDS SUMMARY | 2024-11-05 15:49 | XMS_ITS | Encounter Summary ---
Author Organization [employer] Address [address] [facility] [address]t [place] [address] Care Team Providers Care Neonatal Critical Care Nurse Name Role Phone Tiffany Morales MD Primary Care Provider [phone] Encounter Details Date Type Department Care Team (Late st Contact Info) Description 02/09/2024 Orders Only [facility] [address] [place] [address] Tiffany Morales MD [address] [place] [id number] Social History Tobacco Use Types Packs/Day Years Used Date Smoking Tobacco: Never Smokeless Tobacco: Never Depression Answer Date Recorded Patient Health Questionnaire-9 Score 0 02/02/2024 Patient Health Questionnaire-9 Score 0 02/02/2024 Last PHQ-9: Questionnaire Data Not on file 0 02/02/2024 Housing Stability Answer Date Recorded What is your housing situation today? I have lyn dobbs 01/29/[address] you li ve. Do you have problems with any of the following? None of the above 01/29/2024 Food Insecurity Answer Date Recorded Within the past 12 months, y ou worried that your food would run out before you got money to buy more: Never True 04/11/2023 Within the past 12 months,th e food you bought just didn't last and you didn't have enough money to get more: Never True Transportation Answer Date Recorded In the past 12 months, has l ack of transportation kept you from medical appts, meetings, work or from getting things needed for daily living? No 04/11/2023 Utilities Answer Date Recorded In the past 12 months, has t he electric, gas, oil or water company threatened to shut off services in your home? No 04/11/2023 Depression Answer Date Recorded Patient Health Questionnaire-2 Score 0 02/02/2024 Comments Unknown Sex and Gender Information Value Date Recorded Sex Assigned at Female 04/18/2022 10:20 AM EDT Legal Sex Female 10:20 AM EDT Gender Identity Female 04/18/2022 10:20 AM EDT Sexual Orientation Straight 04/18/2022 10 :20 AM EDT documented as of this encounter Plan of Treatment Not on file documented as of this encounter Visit Diagnoses Not on filedocumented in this encounter Additional Health Concerns Assessment Noted Time PHQ-9 Depression Total Score: 0 02/02/20 1:47 PM EDT documented as of this encounter Care Teams Neonatal Critical Care Nurse Relationship Specialty Start Date End Date Tiffany Morales MD [address] [place] [address] PCP - General Internal Medicine 07/02/14 documented as of this encounter
--- OUTSIDE RECORDS SUMMARY | 2024-11-05 15:49 | XMS_ITS | Encounter Summary ---
Author Organization [employer] Address [address] [place] [address] [address] [place] [address] Care Team Providers Care Credit Operations Processor Name Role Phone Tiffany Morales MD Primary Care Provider [phone] Encounter Details Date Type Department Care Team (Late st Contact Info) Description 02/01/2024 Orders Only [facility] [address] [place], [place] [phone] Tiffany Morales MD [address] [place] [address] Subconjunctival hemorrhage of right eye (Primary Dx) Social History Tobacco Use Types Packs/Day Years [...] AM EDT documented as of this encounter Functional Status * Over the past 2 weeks, how often have you been bothered by any of the following problems? Question Answer Date of Assessment Author Patient Health Questionnaire-2 Score 0 01/17 1:47 PM EDT Estefani May [place] * Over the past 2 weeks, how often have you been bothered by any of the following problems? Question Answer Date of Assessment Author Little interest or pleasure in doing things Not at all 02/02/2024 1:47 PM GETT Estefani May [place] Feeling down, depressed, or hopeless Not at all 02/02/2024 1:47 PM GETT Estefani May [place] Trouble falling or staying a sleep, or sleeping too much Not at all 02/02/2024 1:47 PM GETT Estefani May [place] Feeling tired or having migue le energy Not at all 02/02/2024 1:47 PM GETT Estefani May [place] Poor appetite or overeating Not at all 02/02/2024 1: 47 PM GETT Estefani May [place] Feeling bad about yourself - or that you are a failure or have let yourself or your family down Not at all 02/02/2024 1:47 PM GETT Preeti May [place] Trouble concentrating on thi ngs, such as reading the newspaper or watching television Not at all 02/02/2024 1:47 PM GETT Estefani May [place] Moving or speaking so slowly that other people could have noticed? Or the opposite - being so fidgety or restless that you have been moving around a lot more than usual. Not at all 02/02/2024 1:47 PM EDT Estefani May MA Thoughts that you would be b deandre off or hurting yourself in some way Not at all 02/02/2024 1:47 PM EDT Estefani May MA Patient Health Questionnaire -9 Score 0 02/02/2024 1:47 PM EDT Estefani May [place] documented as of this encounter Plan of Treatment Not on file documented as of this encounter Visit Diagnoses Diagnosis Subconjunctival hemorrhage of right eye- Primary documented in this encounter Care Teams Credit Operations Processor Relationship Specialty Start Date End Date Tiffany Morales MD [address] [place] [address] PCP - General Internal Medicine 07/02/14 documented as of this encounter
--- OUTSIDE RECORDS SUMMARY | 2024-11-05 15:49 | XMS_ITS | Clinical Summary ---
Author Organization [employer] Address [address] [place] [address] 7[address] [place] [address] Care Team Providers Care [place] Demonstrator Name Role Phone Tiffany Morales MD Primary Care Provider Allergies Active Allergy Reactions Criticality Noted Date Comments Gramineae Pollens 05/24/2022 Seasonal allergy Medications diphenhydrAMINE (Benadryl Allergy) 25 MG tablet Take 1 tablet by mouth every 12 (twelve) hours. 2 Active cholecalciferol (Vitamin D-3) 50 MCG (1999 UT) capsule Take 1 capsule by mouth 1 (one) time each day. 2 Active acetaminophen (Tylenol) 500 MG tablet Take 1 tablet by mouth. Every 6-8 hours as needed 2 Active Misc. Devices (Pulse Oximeter) misc To use every 4-6 hours 2 Active hydrOXYzine HCl (Atarax) 25 MG tablet Take 1 tablet by mouth every 12 (twelve) hours if needed. 1 Active mupirocin (Bactroban) 2 % ointment Apply topically every 8 (eight) hours. A small amount to the affected area 0 Active etonogestrel-elut ing (Nexplanon) 68 mg contraceptive implant Active Blood Pressure kit Take by on arm route as directed Active cyclobenzaprine (Flexeril) 10 MG tablet Take 1 tablet (10 mg) by mouth 3 times daily for 10 days. 30 tablet 4 Active dilTIAZem SR (Cardizem SR) 60 MG 12 hr capsuleIndication s:Primary hypertension Take 1 capsule (60 mg) by mouth 2 times daily. 60 capsule 11 4 12/28/19 25 Active cetirizine (ZyrTEC) 10 MG tabletIndications :Seasonal allergies Take 1 tablet (10 mg) by mouth 2 times daily. 180 tablet 3 4 01/24/20 25 Active metroNIDAZOLE (Flagyl) 500 MG tablet Take 1 tablet (500 mg) by mouth 2 times daily for 7 days. 14 tablet 5 11/13/19 25 Active predniSONE (Deltasone) 20 MG tablet Take 1 tablet (20 mg) by mouth Once per day for 5 days. 5 tablet 5 10/30/19 25 Active Problems Problem Noted Date Diagnosed Date Concussion with no loss of consciousness 024 Assessment & Plan (03/22/2024 4:16 PM EDT): Concussion 2/2 sport injury, persistent symptom at this moment will send to concussion clinic. SUKHI score: 14. Physical : 6, Thinkin, Emotional: 3 and Sleep 2. Hypertension 05/05/2023 05/05/2023 Paraspinal muscle spasm 10/20/2022 Assessment & Plan (10/20/2022 3:22 PM EDT): Advised to consider chiropractor. Patient with mid back pain. Paraspinal spasms and asymmetrical shoudlers upon examination with right sided anterior rotation of back. Will start on flexeril. Encouraged heat and ice treatment. Hydroureteronephrosis 02/15/2022 Acute COVID-19 06/22/2021 Abnormal cervical Papanicolaou smear 07/21/2015 Anxiety disorder 07/21/2015 Resolved Problems Problem Noted Date Diagnosed Date Resolved Date Vitamin D deficiency 07/01/2021 025 Encounters Date Type Department Care Team Description 11/05/2024 Orders Only [facility] MED & PEDS [address] [facility] [address] Raiza Liao MD Acute vaginitis (Primary Dx) 10/24/2024 Orders Only [facility] MED [facility] PED[facility] [address] [facility] [place] [facility] [place] [address] Raiza Liao MD 10/11/2024 8:00 AM EDT Office Visit [facility] ADULT DENTAL [address] [place] [address] Norma Tinoco Defective dental sikhism (Primary Dx) from Last 3 Months Immunizations Immunization Administration Dates Next Due Influenza Injectable Quadriv alant Preservative Free IIV4 MDCK 04/14/2023,03/10/2022,03/11/2021,2019 Influenza injectable quadriv alent IIV4 with preservative 02/27/2019,02/28/2018,02/25/2015,1979 Influenza injectable quadriv alent preservative free 03/02/2016,05/04/2006 Influenza, IIV3, injectable 03/11/2021,0 03/18/2020,02/27/2019,2017,03/02/2016,02/25/2015,05/04/2006,0 1980 Moderna Covid-19 Vaccine 12+ 05/08/2021,07/17/19 21,06/17/2020 Tdap 09/29/2021,10/10/2011 Social History Tobacco Use Types Packs/Day Years Used Date Smoking Tobacco: Never Smokeless Tobacco: Never Tobacco Cessation:Counseling Given: Not Answered Alcohol Use Standard Drinks/Week Comments Defer 0 (1 standard drink = 0.6 oz pur e alcohol) Depression Answer Date Recorded Patient Health Questionnaire-9 [...] Recorded Patient Health Questionnaire-2 Score 0 02/02/2024 Internet Access Answer Date Recorded Internet Access Q1 Yes 02/19/2024 Internet Access Q2 Not on file 02/19/2024 Comments Unknown Sex and Gender Information Value Date Recorded Sex Assigned at Female 04/18/2022 10:20 AM EDT Legal Sex Female 10:20 AM EDT Gender Identity Female 04/18/2022 10:20 AM EDT Sexual Orientation Straight 04/18/2022 10 :20 AM EDT Last Filed Vital Signs Vital Sign Reading Time Taken Comments Blood Pressure 132/88 10/11/2024 8:08 AM EDT Pulse 71 05/24/2024 10:20 AM EST Temperature 36.3 ??C (97.3 ??F) 05/24/2024 10:[address] Respiratory Rate 16 05/24/2024 10:20 AM EST Oxygen Saturation 98% 03/22/2024 3:17 PM EDT Inhaled Oxygen Concentration - - Weight 78 kg (172 lb) 05/24/2024 10:20 AM EST Height 160 cm (5' 3 ) 05/24/2024 10:20 AM EST Body Mass Index 30.47 05/24/2024 10:20 AM EST Plan of Treatment Health Maintenance Due Date Last Done Comments Disability Screening 1980 Alcohol/Substance Use Screening 1992 Family Planning (PISQ) 01/08/1995 Hepatitis B Vaccines (1 of 3 - 19+ 3-dose series) 01/08/1999 COVID-19 Vaccine ( season) 2024 05/08/2021, 07/17/2020, 06/17/2020 Influenza Vaccine (#1) 2024 , 03/10/2022, 03/11/2021, Additional history exists SDOH Screening 01/28/2025 01/29/2024 Depression Screening 02/01/2025 02/02/2024, 02/02/20 Dental X-Ray: Bitewings 03/27/2025 03/26/20 24, 11/20/2018, 11/13/2015, Additional history exists Dental Oral Exam 04/13/2025 10/11/2024, 01/2024, 12/10/2018, Additional history exists Dental Prophylaxis 04/13/2025 10/11/2024, 1 , 05/27/2019, Additional history exists Tobacco Screening 10/11/2025 10/11/2024 Mammogram 04/10/2026 04/10/2024, 03/19, 03/16/2022, Additional history exists Dental X-Ray: Full Mouth 03/27/2027 024, 11/20/2018, 08/12/2014, Additional history exists Cervical Cancer Screening 06/11/2027 HPV/Cotest 06/11/2027 06/11/2022, 03/30/2021 Pap Smear 06/11/2027 06/11/2022, 03/19, 03/30/2021 Lipid Panel 02/07/2029 02/08/2024 Zoster Vaccines (1 of 2) 01/08/2030 DTaP/Tdap/Td Vaccines (3 - Td or Tdap) 09/30/2031 09/29/2021, 10/10/2011 RSV Patients and Patients Aged 60 years or older (1 - 1-dose 75+ series) 01/08/2055 HIV Screening Completed 02/08/2024, 10/03/2023 Hepatitis C Screening Completed 02/08/2024 HIB Vaccines Aged Out No longer eligi ble based on patient's age to complete this topic HPV Vaccines Aged Out No longer eligi ble based on patient's age to complete this topic Hepatitis A Vaccines Aged Out No long er eligible based on patient's age to complete this topic IPV Vaccines Aged Out No longer eligi ble based on patient's age to complete this topic Meningococcal B Vaccine Aged Out No l onger eligible based on patient's age to complete this topic Meningococcal Vaccine Aged Out No kandi yasmeen eligible based on patient's age to complete this topic Pneumococcal Vaccine: Pediatrics (0 to 5 Years) and At-Risk Patients (6 to 49) Years) Aged Out No longer eligible based on patient's age to complete this topic RSV under 20 months Aged Out No longe r eligible based on patient's age to complete this topic Rotavirus Vaccines Aged Out No longer eligible based on patient's age to complete this topic Procedures Procedure Name Priority Date/Time Associated Diagnosis Comments PERIODIC ORAL EVALUATION - ESTABLISHED PATIENT Routine 10/11/2024 8:00 AM EDT Defective dental sikhism ORAL HYGIENE INSTRUCTIONS Routine 10/11/2024 8:00 AM EDT Defective dental sikhism CASE PRESENTATION, DETAILED AND EXTENSIVE TREATMENT PLANNING Routine 10/11/2024 8:00 AM EDT Defective dental sikhism PROPHYLAXIS - ADULT Routine 10/11/2024 8 :00 AM EDT Defective dental sikhism BI MAMMOGRAM SCREENING TOMOSYNTHESIS BILATERAL Routine 04/10/2024 2:40 PM EDT INTRAORAL - COMPLETE SERIES OF RADIOGRAPHIC IMAGES Routine 03/26/2024 8:00 AM EDT HEPATITIS C VIRAL RNA, QUANTITATIVE, REAL-TIME PCR Routine 02/08/2024 8:38 AM EDT Annual physical exam HIV 1/2 ANTIGEN/ANTIBODY, FOURTH GENERATION W/RFL Routine 02/08/2024 8:38 AM EDT Annual physical exam LIPID PANEL, STANDARD Routine 02/08/2024 8:38 AM EDT Annual physical exam THINPREP IMAGING PAP AND HPV MRNA E6/E7, WITH CT/NG, TRICHOMONAS Routine 06/11/2022 6:22 AM EST from Last 3 Months or Most Recently Relevant to Health Maintenance Results * BI Mammogram Screening Tomosynthesis Bilateral (04/10/2024 2:40 PM EDT) Anatomical Region Laterality Modality Breast Bilateral Mammography 04/10/2024 2:40 PM EDT Narrative 04/22/2024 4:19 PM EST ? [facility] ? [address] ?[place] [address] ? Mammography Report ? Signed ? Patient: Josue,Abbie ?MR#: [id number] ?? [id number] ? : 1980 ?Acct:[id number] ? Age/Sex: 44 / F ?ADM Date: 10/23/24 ? Loc: HO.MAMMO ? Attending Dr: Tiffany Morales MD ? Ordering Physician: Tiffany Morales MD ?Results: 1 ?? Negative ? Date of Service: 04/10/24 ?Follow Up: 1 Year From Orig ?? inal Mammogram ? Procedure(s): MM tomosynthesis screening BI ?? Accession Number(s): [id number] ? cc: Tiffany Morales MD ? EXAMINATION: ?? MM SCREENING DIGITAL BREAST TOMOSYNTHESIS, BILATERAL ? CLINICAL INFORMATION: ? Screening. Asymptomatic. ? COMPARISON: ?? Mammography: Comparison is made with available priors ? TECHNIQUE: ?? Digital breast mammography with tomosynthesis is performed in both the ?? craniocaudal and mediolateral oblique views along with computer-aided ?? detection (CAD). ? FINDINGS: ?? The breasts are heterogeneously dense, which may obscure small masses ?? (ACR BI-RADS breast composition Category c). ? There are no significant masses, abnormal calcifications, or other ?? abnormalities. ? MM/MM tomosynthesis screening BI ?? IMPRESSION: ?? No mammographic evidence of malignancy. ? ASSESSMENT: ? BI-RADS BI-RADS 1 - Negative ? RECOMMENDATION: ?? Routine annual mammography screening. ? 1 year F/U ? This examination should not preclude the clinical evaluation of a ?? suspicious palpable abnormality. ? This patient's information was entered into a reminder system with a ?? target due date for their next mammogram. ? Electronically signed by: ??Haylee Cabral DO ??04/22/2024 04:15 PM EST ?? RP ? Dictated By: ?Haylee Cabral DO ? Signed By: ?<Electronically signed by Haylee Cabral, DO in [place]> ? 04/22/24 1615 ? DD/ 1440 ? TD/TT: 04/10/24 1440 ? Bobbin Stripper: ? Procedure Note Donotuseinterpreter, Image - 04/22/2024 Odilon [facility] [address] [place], [place] [address] Mammography Report Signed Patient: Scott Salas#: [id number] : 1980Acct:[id number] Age/Sex: 44 / FADM Date: 04/10/24 Loc: HO.MAMMO Attending Dr: Tiffany Morales MD Ordering Physician: Tiffany Morales MDResults: 1 Negative Date of Service: 04/10/24Follow Up: 1 Year From Orig ina Mammogram Procedure(s): MM tomosynthesis screening BI Accession Number(s): [id number] cc: Tiffany Morales MD EXAMINATION: MM SCREENING DIGITAL BREAST TOMOSYNTHESIS, BILATERAL CLINICAL INFORMATION: Screening. Asymptomatic. COMPARISON: Mammography: Comparison is made with available priors TECHNIQUE: Digital breast mammography with tomosynthesis is performed in both the craniocaudal and mediolateral oblique views along with computer-aided detection (CAD). FINDINGS: The breasts are heterogeneously dense, which may obscure small masses (ACR BI-RADS breast composition Category c). There are no significant masses, abnormal calcifications, or other abnormalities. MM/MM tomosynthesis screening BI IMPRESSION: No mammographic evidence of malignancy. ASSESSMENT: BI-RADS BI-RADS 1 - Negative RECOMMENDATION: Routine annual mammography screening. 1 year F/U This examination should not preclude the clinical evaluation of a suspicious palpable abnormality. This patient's information was entered into a reminder system with a target due date for their next mammogram. Electronically signed by: Haylee Cabral DO 04/22/2024 04:15 PM [facility] Dictated By: Haylee Cabral DO Signed By: <Electronically signed by Haylee Cabral DO in [place]> 04/22/24 1615 DD/ 1440 TD/TT: 04/10/24 1440 Bobbin Stripper: Tiffany Morales MD IMG BI PROCEDURES Edited Re sult - Final * Hepatitis C Viral RNA, Quantitative, Real-Time PCR (02/08/2024 8:38 AM EDT) [facility] Hepatitis C Viral Load <15 NOT DETECTED NOT DETECTED IU/mL [facility] HCV Log PCR <1.18 NOT DETECTED NOT DETECTED Log IU/mL [facility] Comment:For additional infor medina, please refer tohttp://education.eToro/faq/JSY26a6(This link is being provided for informational/educational purposes only.)THIS TEST WAS PERFORMED AT:[facility] [place] [id number] PRITCHARD MD Blood Venous blood specimen / Unknown 02/08/2024 8:38 AM EDT 02/08/2024 2:14 PM EDT Tiffany Morales MD LAB BLOOD ORDERABLES Final Result [facility] [address] [place] [address] [phone] * HIV-1/2 Antigen and Antibodies, Fourth Generation, with Reflexes (02/08/2024 8:38 AM EDT) Pathologist [facility] HIV AB/AG Nonreactive Nonreactive [facility] Comment:HIV-1 p24 Ag and/or HIV-1/HIV-2 Ab not detected.A test result that is nonreactive does not exclude thepossibility of exposure to or infection with HIV-1 and/orHIV-2. Nonreactive results in this assay for individualswith prior exposure to HIV-1 and/or HIV-2 may be due toantigen and antibody levels that are below the limit ofdetection of this assay.The [employer] HIV Ag/Ab Combo assay result andsupplemental assay results should be interpreted inconjunction with the patient's clinical presentation,history and other laboratory results. If the results areinconsistent with clinical evidence, additional testing issuggested to confirm the result. Blood Venous blood specimen / Unknown 02/08/2024 8:38 AM EDT 02/08/2024 2:14 PM EDT us Tiffany Morales MD LAB BLOOD ORDERABLES Final Result [facility] [address] [place] [phone] * Lipid Panel, Standard (02/08/2024 8:38 AM EDT) Triglycerides 83 <150 mg/dL [facility] Comment:Desirable Triglyceri de: less than 150 mg/dLBorderline High Triglyceride 150-199 mg/dLHigh Triglyceride: 200-499 mg/dLVery High Triglyceride: greater than or equal to 5OO mg/dL Cholesterol 154 <200 mg/dL [facility] Comment:Desirable Cholestero l: less than 200 mg/dLBorderline High Cholesterol: 200-239 mg/dLHigh Cholesterol: greater than 239 mg/dL LDL Cholesterol Calculated 89 <100 mg/dL [facility] Comment:Desirable LDL: less than 100 mg/dLNear Optimal/Above Optimal LDL: 110- 129 mg/dLBorderline High LDL: 130-159 mg/dLHigh LDL: 160-189 mg/dLVery High LDL: greater than or equal to 190 mg/dL HDL Cholesterol 49 >40 mg/dL [facility] Comment:Desirable HDL: great er than 40 mg/dL Note: This HDL assay may give artificially low results in patients with liver disease. Blood Venous blood specimen / Unknown 02/08/2024 8:38 AM EDT 02/08/2024 2:14 PM EDT us Tiffany Morales MD LAB BLOOD ORDERABLES Final Result [facility] [address] [place] [phone] * Thinprep TIS PAP And HPV mRNA E6/E7, CT/NG, TRICH (06/11/2022 6:22 AM EST) Clinical Information: None given [facility] LMP: NONE GIVEN [facility] Lignum-Openerat Prev. PAP: NONE GIVEN [facility] Prev. BX: NONE GIVEN [facility] SOURCE: None given [facility] Statement Of Adequacy: [facility] Comment: Satisfactory for evaluation. Endocervical/transformation zone component absent. Age and/or menstrual status not provided Interpretation/Re sult: Negative for intraepithelial lesion or malignancy. [facility] COMMENT: This Pap test has been evaluated with computer assisted technology. [facility] Manager Advertising: [email or web address] Comment: KYRA GALINDO(ASCP) CT screening location: [address] ??[phone] (Always Message) [facility] Comment: EXPLANATORY NOTE: The Pap is a screening test for cervical cancer. It is not a diagnostic test and is subject to false negative and false positive results. It is most reliable when a satisfactory sample, regularly obtained, is submitted with relevant clinical findings and history, and when the Pap result is evaluated along with historic and current clinical information. HPV nRNA E6/E7 Not Detected Not Detected [facility] Comment: Methodology: Criminal Justice Teacher-Mediated Amplification This assay detects E6/E7 viral messenger RNA (mRNA) from 14 high-risk HPV types (16,18,31,33,35,39,45,51,52,56,58,59,66,68). Cervical sources are required for HPV testing. If a vaginal source from a patient who has had a total hysterectomy with removal of cervix was submitted, please contact the testing laboratory for alternative testing options. For additional information, please refer to http://VivaReal.eToro/faq/ROZ895w5 (This link if provided for information/ educational purposes only.) Chlamydia trachomatis RNA, TMA, Urogenital NOT DETECTED NOT DETECTED [facility] Neisseria gonorrhoeae RNA, TMA, Urogenital NOT DETECTED NOT DETECTED [facility] [place] (Always Message) [facility] [place] Comment: The analytical performance characteristics of this assay, when used to test SurePath(TM) specimens have been determined by [facility]. The modifications have not been cleared or approved by the FDA. This assay has been validated pursuant to the CLIA regulations and is used for clinical purposes. For additional information, please refer to https://VivaReal.eToro/faq/NFW568 (This link is being provided for information/ educational purposes only.) Trichomonas vaginalis, QL, TMA, PAP Vial NOT DETECTED NOT DETECTED [facility] Comment: The analytical performance characteristics of this assay have been determined by [facility]. The modifications have not been cleared or approved by the FDA. This assay has been validated pursuant to the CLIA regulations and is used for clinical purposes. For additional information, please refer to http://VivaReal.eToro/ faq/Trichomonastma (This link is being provided for information/ educational purposes only.) 06/08/2022 1:1 3 PM EST Narrative [facility] - 06/11/2022 6:22 AM EST FASTING: UNKNOWN Clarissa Bush [facility] PATHOLOGY ORDERABLES Final Result [facility] [address] [facility], [place] [address] [facility] [place] [address] [facility] [facility], ([address]) [place] [address] from Last 3 Months or Most Recently Relevant to Health Maintenance Insurance [place] [address] , [address] [address] HSN PARTIAL DENTAL - HSN PARTIAL (MEDICAID) Care Teams County Demonstrator Relationship Specialty Start Date End Date Tiffany Morales MD [address] [place] [phone] PCP - General Internal Medicine 07/02/14
--- OUTSIDE RECORDS SUMMARY | 2024-11-05 15:49 | XMS_ITS | Encounter Summary ---
Author Organization [employer] Address [address] [place] [address] [address] [place] [address] Care Team Providers Care Service Desk Associate Name Role Phone Tiffany Morales MD Primary Care Provider [phone] Encounter Details Date Type Department Care Team (Late st Contact Info) Description 12/28/2023 Orders Only [facility] MED & PEDS [address] [place], [place] [phone] Tiffany Morales MD [address] [place] [address] Acute pain of right knee (Primary Dx); Primary hypertension Social History Tobacco Use Types Packs/Day Years Used Date Smoking Tobacco: Never Smokeless Tobacco: Never Housing Stability Answer Date Recorded What is your housing situation today? I do not have housing (Staying with others, in a hotel, in a usp, living outside on the street, on a beach, in a car, or in a park 03/26/[address] you li ve. Do you have problems with any of the following? None of the above 03/26/2023 Food Insecurity Answer Date Recorded Within the [...] off services in your home? No 04/11/2023 Comments Unknown Sex and Gender Information Value Date Recorded Sex Assigned at Female 04/18/2022 10:20 AM EDT Legal Sex Female 10:20 AM EDT Gender Identity Female 04/18/2022 10:20 AM EDT Sexual Orientation Straight 04/18/2022 10 :20 AM EDT documented as of this encounter Plan of Treatment Not on file documented as of this encounter Visit Diagnoses Diagnosis Acute pain of right knee- Primary Primary hypertension Unspecified essential hypertension documented in this encounter Care Teams Service Desk Associate Relationship Specialty Start Date End Date Tiffany Morales MD [address] [place] [phone] PCP - General Internal Medicine 07/02/14 documented as of this encounter
--- OUTSIDE RECORDS SUMMARY | 2024-11-05 15:49 | XMS_ITS | Encounter Summary ---
Author Organization [employer] Address [address] [place] [address] [place] [address] Care Team Providers Care Corn Detasseler Name Role Phone Tiffany Morales MD Primary Care Provider [phone] Reason for Visit * Reason Comments Med Refill Encounter Details Date Type Department Care Team ([facility] st Contact Info) Description 10/25/2022 Refill [facility] MED [facility] PEDS [address] [place] [address] Tiffany Morales MD [address] [place] [address] Essential (primary) hypertension Social History Tobacco Use Types Packs/Day Years Used Date Smoking Tobacco: Never Smokeless Tobacco: Never Comments Unknown Sex and Gender Information Value Date Recorded Sex Assigned at Female 04/18/2022 10:20 AM EDT Legal Sex Female 10:20 AM EDT Gender Identity Female 04/18/2022 10:20 AM EDT Sexual Orientation Straight 04/18/2022 10 :20 AM EDT COVID-19 Exposure Response Date Recorded In the last 10 days, have yo u been in contact with someone who was confirmed or suspected to have Coronavirus/COVID-19? No / Unsure 10/20/2022 2:41 PM EDT documented as of this encounter Plan of Treatment Not on file documented as of this encounter Visit Diagnoses Diagnosis Essential (primary) hypertension Unspecified essential hypertension documented in this encounter Care Teams Corn Detasseler Relationship Specialty Start Date End Date Tiffany Morales MD [address] [place] [address] PCP - General Internal Medicine 07/02/14 documented as of this encounter
--- OUTSIDE RECORDS SUMMARY | 2024-11-05 15:49 | XMS_ITS | Encounter Summary ---
Author Organization [employer] [facility] Address [address] [place] [address] Care Team Providers Care Veterinarian Name Role Phone Tiffany Morales MD Primary Care Provider [phone] Encounter Details Date Type Department Care Team (Latest Contact Info) Description 11/20/2018 Abstract [facility] CONVERSIONS Dental, Provider, DDS Social History Tobacco Use Types Packs/Day Years Used Date Smoking Tobacco: Never Assessed Comments Unknown Sex and Gender Information Value Date Recorded Sex Assigned at Female 04/18/2022 10:20 AM EDT Legal Sex Female 10:20 AM EDT Gender Identity Female 04/18/2022 10:20 AM EDT Sexual Orientation Straight 04/18/2022 10 :20 AM EDT documented as of this encounter Plan of Treatment Not on file documented as of this encounter Visit Diagnoses Not on filedocumented in this encounter Care Teams Veterinarian Relationship Specialty Start Date End Date Tiffany Morales MD [address] [place] [phone] PCP - General Internal Medicine 07/02/14 documented as of this encounter
--- OUTSIDE RECORDS SUMMARY | 2024-11-05 15:49 | XMS_ITS | Encounter Summary ---
Author Organization [employer] Address [address] [place] [address] 7 [place] [address] Care Team Providers Care Auger Operator Name Role Phone Tiffany Morales MD Primary Care Provider [phone] Encounter Details Date Type Department Care Team (Late st Contact Info) Description 09/12/2023 Orders Only [facility] CHC MED & PEDS 505 [place], [place] [phone] Tiffany Morales MD 505 [place] [address] Seasonal allergies (Primary Dx) Social History Tobacco Use Types Packs/Day Years Used Date Smoking Tobacco: Never Smokeless Tobacco: Never Housing Stability Answer Date Recorded What is your housing situation today? I do not have housing (Staying with others, in a hotel, in a senior care, living outside on the street, on a [...] as of this encounter Visit Diagnoses Diagnosis Seasonal allergies- Primary Allergic rhinitis, cause unspecified documented in this encounter Care Teams Auger Operator Relationship Specialty Start Date End Date Tiffany Morales MD [address] [place] [address] PCP - General Internal Medicine 07/02/14 documented as of this encounter
--- OUTSIDE RECORDS SUMMARY | 2024-11-05 15:49 | XMS_ITS | Encounter Summary ---
Author Organization [employer] Address [address] [place] [address] 7 [place] [address] Care Team Providers Care Press Tender Short Goods Name Role Phone Tiffany Morales MD Primary Care Provider [phone] Encounter Details Date Type Department Care Team ([facility] st Contact Info) Description 07/03/2024 Orders Only [facility] CHC MED & PEDS 505 [place], [place] [phone] Tiffany Morales MD 505 [place], [place] [phone] Vaginal discharge (Primary Dx) Social History Tobacco Use Types [...] as of this encounter Visit Diagnoses Diagnosis Vaginal discharge- Primary Leukorrhea, not specified as infective documented in this encounter Additional Health Concerns Assessment Noted Time PHQ-9 Depression Total Score: 0 02/02/20 1:47 PM EDT documented as of this encounter Care Teams Press Tender Short Goods Relationship Specialty Start Date End Date Tiffany Morales MD [address] [place] [address] PCP - General Internal Medicine 07/02/14 documented as of this encounter
--- OUTSIDE RECORDS SUMMARY | 2024-11-05 15:49 | XMS_ITS | Encounter Summary ---
Author Organization [employer] Address [address] [place] [address] 7 [place] [address] Care Team Providers Care Deburr Technician Name Role Phone Tiffany Morales MD Primary Care Provider [phone] Encounter Details Date Type Department Care Team (Late st Contact Info) Description 07/29/2024 Orders Only [facility] CHC MED & PEDS 505 [place], [place] [phone] Carlos Boyer MD 505 [place] [address] Social History Tobacco Use Types Packs/Day Years [...] documented as of this encounter Care Teams Deburr Technician Relationship Specialty Start Date End Date Tiffany Morales MD [address] [place] [address] PCP - General Internal Medicine 07/02/14 documented as of this encounter
--- OUTSIDE RECORDS SUMMARY | 2024-11-05 15:49 | XMS_ITS | Encounter Summary ---
Author Organization [employer] Address [address] [place] [address] Care Team Providers Care Roll Plugger Name Role Phone Tiffany Morales MD Primary Care Provider [phone] Reason for Referral * Imaging (Routine) - Closed Specialty Diagnoses / Procedures Referred By Contdiandra menjivar Referred To Contact Diagnoses Right flank pain Procedures US Renal Complete Tiffany Morales MD [address] [place] [address] Phone: tel: fax: [address] Phone: tel: fax: Referral ID Status Reason Start Date Expiration Date Visits Re quested Visits Authorized [id number] Closed 10/17/2022 04/15/2023 1 1 Encounter Details Date Type Department Care Team (Late st Contact Info) Description 10/17/2022 Orders Only [facility] CHC MED & PEDS 505 [place] [address] Tiffany Morales MD [address] [place] [address] Right flank pain (Primary Dx) Social History Tobacco Use Types [...] as of this encounter Plan of Treatment Scheduled Orders Name Type Priority Associated Diagnoses Orde r Schedule US Renal Complete Imaging Routine Right flank pain Expected: 10/17/2022 (Approximate), Expires: 10/18/2023 documented as of this encounter Visit Diagnoses Diagnosis Right flank pain- Primary Abdominal pain, unspecified site documented in this encounter Care Teams Roll Plugger Relationship Specialty Start Date End Date Tiffany Morales MD [address] [place] [address] PCP - General Internal Medicine 07/02/14 documented as of this encounter
--- OUTSIDE RECORDS SUMMARY | 2024-11-05 15:49 | XMS_ITS | Encounter Summary ---
Author Organization [employer] Address [address] [place] [address] 7 [place] [address] Care Team Providers Care Inspector Final Assembly Conveyor Line Name Role Phone Tiffany Morales MD Primary Care Provider [phone] Encounter Details Date Type Department Care Team (Late st Contact Info) Description 12/08/2023 Orders Only [facility] CHC MED & PEDS 505 [place], [place] [phone] Tiffany Morales MD 505 [place] [address] Social History Tobacco Use Types Packs/Day Years Used Date Smoking Tobacco: Never Smokeless Tobacco: Never Housing Stability Answer Date Recorded What is your housing situation today? I do not have housing (Staying with others, in a hotel, in a [place], living outside on the street, on a [...] the past 12 months, has t he [employer], oil or water company threatened to shut [...] on filedocumented in this encounter Care Teams Inspector Final Assembly Conveyor Line Relationship Specialty Start Date End Date Tiffany Morales MD [address] [place] [address] PCP - General Internal Medicine 07/02/14 documented as of this encounter
--- OUTSIDE RECORDS SUMMARY | 2024-11-05 15:49 | XMS_ITS | Encounter Summary ---
Author Organization [employer] Address [address] [place] [address] Care Team Providers Care Data Communications Software Consultant Name Role Phone Tiffany Morales MD Primary Care Provider [phone]- [phone] Reason for Visit * Reason Onset Date Comments Request For Order(s) 08/24/2023 Encounter Details Date Type Department Care Team ([facility] st Contact Info) Description 08/24/2023 Telephone [facility] [address] [place] [address] Tiffany Morales MD [address] [place] [address] Request For Order(s) Social History Tobacco Use Types Packs/Day Years [...] AM EDT documented as of this encounter Miscellaneous Notes * Telephone Encounter - Kyra Solorio RN - 08/24/2023 11:22 AM EST Noted, order printed and faxed to [facility] * Telephone Encounter - Lana Cortez MD - 08/24/2023 11:19 AM EST New order available .Please fax it to [facility] * Telephone Encounter - Divya Spencer - 08/24/2023 10:09 AM EST Tc from [place] with [facility] rquesting correction on Ankle MR Order, Sloanm stated order should said; MR Ankle W/O Contrast Right documented in this encounter Plan of Treatment Not on file documented as of this encounter Visit Diagnoses Not on filedocumented in this encounter Care Teams Data Communications Software Consultant Relationship Specialty Start Date End Date Tiffany Morales MD [address] [place] [address] PCP - General Internal Medicine 07/02/14 documented as of this encounter
--- OUTSIDE RECORDS SUMMARY | 2024-11-05 15:49 | XMS_ITS | Encounter Summary ---
Author Organization [employer] Address [address] [place] [address] [place] [address] Care Team Providers Care Senior Analyst Developer Name Role Phone Tiffany Morales MD Primary Care Provider [phone] Reason for Visit * Reason Onset Date Comments Request For Order(s) 08/23/2023 Encounter Details Date Type Department Care Team ([facility] st Contact Info) Description 08/23/[address] [facility] CHC MED & PEDS [address] [place], [place] [phone] Tiffany Morales MD 505 [place] [address] Request For Order(s) Social History Tobacco Use Types Packs/Day Years Used Date Smoking Tobacco: Never Smokeless Tobacco: Never Housing Stability Answer Date Recorded What is your housing situation today? I do not have housing (Staying with others, in a hotel, in a penitentiary, living outside on the street, on a [...] encounter Miscellaneous Notes * Telephone Encounter - Margi Lloyd - 08/23/2023 3:15 PM EST Tc from [facility] with [facility] requesting a new order for an MRI without contrast. documented in this encounter Plan of Treatment Not on file documented as of this encounter Visit Diagnoses Not on filedocumented in this encounter Care Teams Senior Analyst Developer Relationship Specialty Start Date End Date Tiffany Morales MD [address] [place] [address] PCP - General Internal Medicine 07/02/14 documented as of this encounter
--- OUTSIDE RECORDS SUMMARY | 2024-11-05 15:49 | XMS_ITS | Encounter Summary ---
Author Organization [employer] Address [address] [place] [address] 7 [place] [address] Care Team Providers Care Bill Distributor Name Role Phone Tiffany Morales MD Primary Care Provider [phone] Encounter Details Date Type Department Care Team (Late st Contact Info) Description 03/05/2024 Orders Only [facility] CHC MED & PEDS 505 [place], [place] [phone] Tiffany Morales MD 505 [place], [place] [phone] BV (bacterial vaginosis) (Primary Dx) Social History Tobacco Use Types [...] on file documented as of this encounter Procedures Procedure Name Priority Date/Time Associated Diagnosis Comments CT CERVICAL SPINE WO CONTRAST Routine 03/18/2024 11:[address] HEAD WO CONTRAST Routine 03/18/2024 1 1:27 AM EDT documented in this encounter Results * CT Cervical Spine w/o Contrast (03/18/2024 11:39 AM EDT) Anatomical Region Laterality Modality Spine, C-spine Computed Tomogra phy 03/18/2024 11:3 9 AM EDT Narrative 03/18/2024 12:48 PM EDT ? [facility] ?[address] ?[place] [address] ? CT Scan Report ? Signed ? Patient: Abbie Salas ?MR#: [id number] ?? [id number] ? : 1980 ?Acct:[id number] ? Age/Sex: 44 / F ?ADM Date: 09/30/24 ? Loc: HO.ED ? Attending Dr: ? Ordering Physician: Fuentes Arroyo ?? Date of Service: 03/18/24 ?? Procedure(s): CT cervical spine wo IV con ?? Accession Number(s): [id number] ? cc: Tiffany Morales MD; Fuentes Arroyo ? EXAMINATION: ?? CT CERVICAL SPINE WITHOUT CONTRAST ? CLINICAL INFORMATION: ?? Trauma. ? COMPARISON: ?? None available. ? TECHNIQUE: ?? Noncontrast computed tomography of the cervical spine was performed. ? This CT examination was performed using dose optimization techniques as ?? appropriate, variously including the following: ?? *Automated exposure control ?? *Adjustment of mA and/or kV according to patient size (this includes ?? techniques or standardized protocols for targeted exams where dose is ?? matched to indication/reason for exam; i.e. extremities or head) ?? *Use of iterative reconstruction technique ? DLP: ?? 377 mGy-cm ? FINDINGS: ?? Cervical spinal alignment is anatomic in the sagittal projection. The ?? vertebral bodies demonstrate preserved stature. There is mild ?? degenerative disc disease at C6-7. There is a small disc osteophyte ?? complex at this level. The atlantooccipital articulations are intact. ?? The C1-C2 relationship is intact. The dens is intact. There is no acute ?? fracture. Prevertebral soft tissue is normal in appearance. Paraspinal ?? soft tissue is normal in appearance. ? The thyroid gland is normal in appearance. The lung apices are clear. ? CT/CT cervical spine wo IV con ?? IMPRESSION: ?? No acute osseous cervical spine abnormality. ? Fleischner guidelines were followed. ? Electronically signed by: ??Tavon Cotton DO ??03/18/2024 12:45 PM EDT RP ? Dictated By: ?Tavon Cotton Jr DO ? Signed By: ?<Electronically signed by Tavon Cotton Jr, DO in OV> ?03/18/24 1245 ? DD/ 1139 ? TD/TT: 03/18/24 1205 ? Assistant Terminal Manager: CB ? Procedure Note Kelby, Image - 03/18/[address] [address] [address] Scan Report Signed Patient: Scott Salas#: [id number] : 1980Acct:[id number] Age/Sex: 44 / FADM Date: 03/18/24 Loc: HO.ED Attending Dr: Ordering Physician: Fuentes Arroyo Date of Service: 03/18/24 Procedure(s): CT cervical spine wo IV con Accession Number(s): [id number] cc: Tiffany Morales MD; Fuentes Arroyo EXAMINATION: CT CERVICAL SPINE WITHOUT CONTRAST CLINICAL INFORMATION: Trauma. COMPARISON: None available. TECHNIQUE: Noncontrast computed tomography of the cervical spine was performed. This CT examination was performed using dose optimization techniques as appropriate, variously including the following: *Automated exposure control *Adjustment of mA and/or kV according to patient size (this includes techniques or standardized protocols for targeted exams where dose is matched to indication/reason for exam; i.e. extremities or head) *Use of iterative reconstruction technique DLP: 377 mGy-cm FINDINGS: Cervical spinal alignment is anatomic in the sagittal projection. The vertebral bodies demonstrate preserved stature. There is mild degenerative disc disease at C6-7. There is a small disc osteophyte complex at this level. The atlantooccipital articulations are intact. The C1-C2 relationship is intact. The dens is intact. There is no acute fracture. Prevertebral soft tissue is normal in appearance. Paraspinal soft tissue is normal in appearance. The thyroid gland is normal in appearance. The lung apices are clear. CT/CT cervical spine wo IV con IMPRESSION: No acute osseous cervical spine abnormality. Fleischner guidelines were followed. Electronically signed by: Tavon Cotton DO 03/18/2024 12:45 PM EDT Dictated By: Tavon Cotton Jr, DO Signed By: <Electronically signed by Tavon Cotton Jr, DO inOV> 03/18/24 1245 DD/ 1139 TD/TT: 03/18/24 1205 Assistant Terminal Manager: RAMOS [facility] External Provider IMG CT PROCEDURES Final Result * CT Head w/o Contrast (03/18/2024 11:27 AM EDT) Anatomical Region Laterality Modality Head, Neck Computed Tomogra phy 03/18/2024 11:2 7 AM EDT Narrative 03/18/2024 12:41 PM EDT ? [facility] ?[address] ?[place] [address] ? CT Scan Report ? Signed ? Patient: Josue,Abbie ?MR#: [id number] ?? [id number] ? : 1980 ?Acct:[id number] ? Age/Sex: 44 / F ?ADM Date: 03/18/24 ? Loc: HO.ED ? Attending Dr: ? Ordering Physician: Fuentes Arroyo ?? Date of Service: 03/18/24 ?? Procedure(s): CT head/brain wo IV con ?? Accession Number(s): [id number] ? cc: Tiffany Morales MD; Fuentes Arroyo ? EXAMINATION: ?? CT HEAD WITHOUT CONTRAST ? CLINICAL INFORMATION: ?? Trauma. ? COMPARISON: ?? None available. ? TECHNIQUE: ?? Contiguous axial imaging was performed from the skull base to vertex ?? without intravenous administration of contrast. ? This CT examination was performed using dose optimization techniques as ?? appropriate, variously including the following: ?? *Automated exposure control ?? *Adjustment of mA and/or kV according to patient size (this includes ?? techniques or standardized protocols for targeted exams where dose is ?? matched to indication/reason for exam; i.e. extremities or head) ?? *Use of iterative reconstruction technique ? DLP: ?? 1082 mGy-cm ? FINDINGS: ?? There is no acute intracranial hemorrhage. There is no evidence of ?? acute/subacute cerebral or cerebellar infarction. There is no midline ?? shift or mass effect. No extra-axial fluid collection. The ventricles ?? are normal in size. The orbits are symmetric and within normal limits. ?? The calvarium is intact. Paranasal sinuses and mastoid air cells are ?? clear. ? CT/CT head/brain wo IV con ?? IMPRESSION: ?? No acute intracranial pathology. ? Electronically signed by: ??Tavon Yury DO ??03/18/2024 12:38 PM EDT RP ? Dictated By: ?Tavon Cotton Jr DO ? Signed By: ?<Electronically signed by Tavon Cotton Jr, DO in OV> ?03/18/24 1238 ? DD/ 1127 ? TD/TT: 03/18/24 1205 ? Assistant Terminal Manager: CB ? Procedure Note Donotuseinterpreter, Image - 03/18/[address] [address] [address] Scan Report Signed Patient: Scott Salas#: [id number] : 1980Acct:[id number] Age/Sex: 44 / FADM Date: 03/18/24 Loc: HO.ED Attending Dr: Ordering Physician: Fuentes Arroyo Date of Service: 03/18/24 Procedure(s): CT head/brain wo IV con Accession Number(s): [id number] cc: Tiffany Morales MD; Fuentes Arroyo EXAMINATION: CT HEAD WITHOUT CONTRAST CLINICAL INFORMATION: Trauma. COMPARISON: None available. TECHNIQUE: Contiguous axial imaging was performed from the skull base to vertex without intravenous administration of contrast. This CT examination was performed using dose optimization techniques as appropriate, variously including the following: *Automated exposure control *Adjustment of mA and/or kV according to patient size (this includes techniques or standardized protocols for targeted exams where dose is matched to indication/reason for exam; i.e. extremities or head) *Use of iterative reconstruction technique DLP: 1082 mGy-cm FINDINGS: There is no acute intracranial hemorrhage. There is no evidence of acute/subacute cerebral or cerebellar infarction. There is no midline shift or mass effect. No extra-axial fluid collection. The ventricles are normal in size. The orbits are symmetric and within normal limits. The calvarium is intact. Paranasal sinuses and mastoid air cells are clear. CT/CT head/brain wo IV con IMPRESSION: No acute intracranial pathology. Electronically signed by: Tavon Cotton DO 03/18/2024 12:38 PM EDT Dictated By: Tavon Cotton Jr, DO Signed By: <Electronically signed by Tavon Cotton Jr, DO inOV> 03/18/24 1238 DD/ 1127 TD/TT: 03/18/24 1205 Assistant Terminal Manager: RAMOS [facility] External Provider IMG CT PROCEDURES Final Result documented in this encounter Visit Diagnoses Diagnosis BV (bacterial vaginosis)- Primary Unspecified vaginitis and vulvovaginitis documented in this encounter Additional Health Concerns Assessment Noted Time PHQ-9 Depression Total Score: 0 02/02/20 24 1:47 PM EDT documented as of this encounter Care Teams Bill Distributor Relationship Specialty Start Date End Date Tiffany Morales MD [address] [place] [address] PCP - General Internal Medicine 07/02/14 documented as of this encounter
--- OUTSIDE RECORDS SUMMARY | 2024-11-05 15:49 | XMS_ITS | Encounter Summary ---
Author Organization [employer] Address [address] [place] [address] 7 [place] [address] Care Team Providers Care Aqua Ammonia Operator Name Role Phone Tiffany Morales MD Primary Care Provider [phone] Encounter Details Date Type Department Care Team (Late st Contact Info) Description 05/24/2023 Orders Only [facility] CHC MED & PEDS 505 [place], [place] [phone] Tiffany Morales MD 505 [place] [address] Acute pain of right knee (Primary Dx); Chronic pain of left knee Social History Tobacco Use Types Packs/Day Years Used Date Smoking Tobacco: Never Smokeless Tobacco: Never Housing Stability Answer Date Recorded What is your housing situation today? I do not have housing (Staying with others, in a hotel, in a correction, living outside on the street, on a [...] Type Priority Associated Diagnoses Orde r Schedule XR Knee 1-2 Views Left Imaging Routine Chronic pain of left knee Expected: 06/05/2023, Expires: 06/05/2024 documented as of this encounter Visit Diagnoses Diagnosis Acute pain of right knee- Primary Chronic pain of left knee documented in this encounter Care Teams Aqua Ammonia Operator Relationship Specialty Start Date End Date Tiffany Morales MD [address] [place] [address] PCP - General Internal Medicine 07/02/14 documented as of this encounter
--- OUTSIDE RECORDS SUMMARY | 2024-11-05 15:49 | XMS_ITS | Encounter Summary ---
Author Organization [employer] Address [address] [place] [address] 7 [place] [address] Care Team Providers Care Cutter Brake Lining Name Role Phone Tiffany Morales MD Primary Care Provider [phone] Reason for Visit * Reason Comments Med Refill Encounter Details Date Type Department Care Team ([facility] st Contact Info) Description 12/26/2023 Refill [facility] CHC MED & PEDS 505 [place], [place] [phone] Tiffany Morales MD 505 [place] [address] Primary hypertension Social History Tobacco Use Types [...] as of this encounter Visit Diagnoses Diagnosis Primary hypertension Unspecified essential hypertension documented in this encounter Care Teams Cutter Brake Lining Relationship Specialty Start Date End Date Tiffany Morales MD [address] [place] [address] PCP - General Internal Medicine 07/02/14 documented as of this encounter
--- OUTSIDE RECORDS SUMMARY | 2024-11-05 15:49 | XMS_ITS | Encounter Summary ---
Author Organization [employer] Address [address] [place] [address] 7 [place] [address] Care Team Providers Care International Banker Name Role Phone Tiffany Morales MD Primary Care Provider [phone] Encounter Details Date Type Department Care Team (Late st Contact Info) Description 11/05/2024 Orders Only [facility] CHC MED & PEDS [address] [place], [place] [phone] Raiza Liao MD 505 [place], [place] [phone] Acute vaginitis (Primary Dx) Social History Tobacco Use Types Packs/Day Years Used Date Smoking Tobacco: Never Smokeless Tobacco: Never Alcohol Use Standard Drinks/Week Comments Defer 0 [...] Type Priority Associated Diagnoses Orde r Schedule Chlamydia/N. Gonorrhoeae RNA, TMA, Urogenitial Microbiology Routine Acute vaginitis Expected: 11/05/2024 (Approximate), Expires: 11/05/2025 Bacterial Vaginosis Panel Microbiology Routine Acute vaginitis Expected: 11/05/2024 (Approximate), Expires: 11/05/2025 documented as of this encounter Visit Diagnoses Diagnosis Acute vaginitis- Primary Unspecified vaginitis and vulvovaginitis documented in this encounter Additional Health Concerns Assessment Noted Time PHQ-9 Depression Total Score: 0 02/02/20 1:47 PM EDT documented as of this encounter Care Teams International Banker Relationship Specialty Start Date End Date Tiffany Morales MD [address] [place] [address] PCP - General Internal Medicine 07/02/14 documented as of this encounter
--- OUTSIDE RECORDS SUMMARY | 2024-11-05 15:49 | XMS_ITS | Encounter Summary ---
Author Organization [employer] Address [address] [place] [address] 7 [place] [address] Care Team Providers Care Wire Fence Builder Name Role Phone Tiffany Morales MD Primary Care Provider [phone] Encounter Details Date Type Department Care Team ([facility] st Contact Info) Description 01/20/2024 Telephone [facility] CHC MED & PEDS 505 [place], [place] [phone] Raiza Liao MD 505 [place], [place] [phone] Social History Tobacco Use Types Packs/Day Years [...] the past 12 months, has t he [employer], gas, oil or water company threatened to [...] on filedocumented in this encounter Care Teams Wire Fence Builder Relationship Specialty Start Date End Date Tiffany Morales MD [address] [place] [address] PCP - General Internal Medicine 07/02/14 documented as of this encounter
--- OUTSIDE RECORDS SUMMARY | 2024-11-05 15:49 | XMS_ITS | Encounter Summary ---
Author Organization [employer] Address [address] [place] [address] 7 [place] [address] Care Team Providers Care Traffic Control Operator Name Role Phone Tiffany Morales MD Primary Care Provider [phone] Encounter Details Date Type Department Care Team (Late st Contact Info) Description 04/14/2023 Orders Only [facility] CHC MED & PEDS [address] [place], [place] [phone] Tiffany Morales MD 505 [place] [address] Herpes (Primary Dx) Social History Tobacco Use Types Packs/Day Years Used Date Smoking Tobacco: Never Smokeless Tobacco: Never Housing Stability Answer Date Recorded What is your housing situation today? I do not have housing (Staying with others, in a hotel, in a alf, living outside on the street, on a [...] t he electric, gas, oil or water [employer] threatened to shut off services in your [...] as of this encounter Visit Diagnoses Diagnosis Herpes- Primary Herpes simplex without mention of complication documented in this encounter Care Teams Traffic Control Operator Relationship Specialty Start Date End Date Tiffany Morales MD [address] [place] [address] PCP - General Internal Medicine 07/02/14 documented as of this encounter
--- OUTSIDE RECORDS SUMMARY | 2024-11-05 15:49 | XMS_ITS | Encounter Summary ---
Author Organization [employer] Address [address] [place] [address] 7 [place] [address] Care Team Providers Care Salvage Grinder Name Role Phone Tiffany Morales MD Primary Care Provider [phone] Encounter Details Date Type Department Care Team (Late st Contact Info) Description 10/03/2023 Orders Only [facility] CHC MED & PEDS 505 [place], [place] [phone] Tiffany Morales MD 505 [place] [address] Acute vaginitis (Primary Dx) Social History Tobacco Use Types Packs/Day Years Used Date Smoking Tobacco: Never Smokeless Tobacco: Never Housing Stability Answer Date Recorded What is your housing situation today? I do not have housing (Staying with others, in a hotel, in a mcc, living outside on the street, on a [...] t he electric, gas, oil or water [employer] threatened to shut off services in your [...] Procedure Name Priority Date/Time Associated Diagnosis Comments URINALYSIS, COMPLETE Routine 10/03/2023 9:30 AM EDT Acute vaginitis SURESWAB(R) ADV BACTERIAL VAGINOSIS (BV), TMA Routine 10/03/2023 9:10 AM EDT Acute vaginitis RPR (MONITOR) W/REFL TITER Routine 10/03/2023 8:58 AM EDT Acute vaginitis HIV 1/2 ANTIGEN/ANTIBODY, FOURTH GENERATION W/RFL Routine 10/03/2023 8:58 AM EDT Acute vaginitis documented in this encounter Results * (ABNORMAL) Urinalysis Complete (10/03/2023 9:30 AM EDT) Color Urine Dark Yellow [facility] Appearance Urine Cloudy [facility] PH 5.5 5.0 - 9.0 [facility] Glucose Urine UA Negative Negative mg/dL [facility] Urine Blood Negative Negative [facility] Specific Hydro - Urine >=1.030(H) 1.005 - 1.025 [facility] Urine Protein Trace Neg-Trace mg/dL [facility] Urine Ketones Negative Negative mg/dL [facility] Nitrite Urine Negative Negative [facility] Leukocyte Esterase Urine Negative Negative [facility] RBC Urine 0-2 0 - 2 /HPF [facility] Urine WBC 0-5 0 - 5 /HPF [facility] Urine Squamous Epithelial Cell 11-20 0 - 2 /HPF [facility] Urine Bacteria 3+ None Seen [facility] Hyaline Casts, Urine 0-2 0 - 2 /LPF [facility] Urine (Urine, Random) 10/03/2023 9:30 AM EDT 10/03/2023 2:16 PM EDT us Tiffany Morales MD LAB URINE ORDERABLES Final Result Performing Organization Address [facility] Co de Phone Number [facility] [address] [place] [address] [phone] * (ABNORMAL) SureSwab?? Advanced Bacterial Vaginosis (BV), TMA (10/03/2023 9:10 AM EDT) SureSwab 9R) ADV Bacterial Vaginosis (BV), TMA POSITIVE( A) NEGATIVE [facility] Comment:THIS TEST WAS PERFOR MED AT:[id number] [place] [phone] PRITCHARD MD 10/03/2023 9:10 AM EDT 10/03/2023 2:16 PM EDT us Tiffany Morales MD LAB BODY FLUIDS AND STOOLS ORDERABLES Final Result Performing Organization Address [facility] de Phone Number [facility] [address] [place] [phone] * RPR (Monitor) with Reflex to??Titer (10/03/2023 8:58 AM EDT) RPR (Monitor) w/Refl Titer NON-REACTI VE NON-REACT NAEEM [facility] Comment:THIS TEST WAS PERFOR MED AT:[id number] [place] [phone] PRITCHARD MD Rapid Plasma Reagin Ab Titer TNP [facility] Blood Venous blood specimen / Unknown 10/03/2023 8:58 AM EDT 10/03/2023 2:22 PM EDT us Tiffany Morales MD LAB BLOOD ORDERABLES Final Result Performing Organization Address [facility] Co de Phone Number [facility] [address] [place] [address] [phone] * HIV-1/2 Antigen and Antibodies, Fourth Generation, with Reflexes (10/03/2023 8:58 AM EDT) HIV AB/AG Nonreactive Nonreactive [facility] Comment:HIV-1 p24 Ag and/or HIV-1/HIV-2 Ab not detected.A test result that is nonreactive does not exclude thepossibility of exposure to or infection with HIV-1 and/orHIV-2. Nonreactive results in this assay for individualswith prior exposure to HIV-1 and/or HIV-2 may be due toantigen and antibody levels that are below the limit ofdetection of this assay.The CAP[employer]URE HIV Ag/Ab Combo assay result andsupplemental assay results should be interpreted inconjunction with the patient's clinical presentation,history and other laboratory results. If the results areinconsistent with clinical evidence, additional testing issuggested to confirm the result. Blood Venous blood specimen / Unknown 10/03/2023 8:58 AM EDT 10/03/2023 2:22 PM EDT us Tiffany Morales MD LAB BLOOD ORDERABLES Final Result Performing Organization Address [facility] Co de Phone Number [facility] [address] [place] [address] [phone] documented in this encounter Visit Diagnoses Diagnosis Acute vaginitis- Primary Unspecified vaginitis and vulvovaginitis documented in this encounter Care Teams Salvage Grinder Relationship Specialty Start Date End Date Tiffany Morales MD [address] [place] [address] PCP - General Internal Medicine 07/02/14 documented as of this encounter
--- OUTSIDE RECORDS SUMMARY | 2024-11-05 15:49 | XMS_ITS | Encounter Summary ---
Author Organization [employer] Address [address] [place] [address] 7 [place] [address] Care Team Providers Care Central Service Supply Distributor Name Role Phone Tiffany Morales MD Primary Care Provider [phone] Reason for Visit * Reason Comments Med Refill Encounter Details Date Type Department Care Team ([facility] st Contact Info) Description 04/14/2023 Refill [facility] CHC MED & PEDS [address] [place], [place] [phone] Tiffany Morales MD 505 [place] [address] Social History Tobacco Use Types Packs/Day Years Used Date Smoking Tobacco: Never Smokeless Tobacco: Never Housing Stability Answer Date Recorded What is your housing situation today? I do not have housing (Staying with others, in a hotel, in a residential, living outside on the street, on a [...] on filedocumented in this encounter Care Teams Central Service Supply Distributor Relationship Specialty Start Date End Date Tiffany Morales MD [address] [place] [address] PCP - General Internal Medicine 07/02/14 documented as of this encounter
--- OUTSIDE RECORDS SUMMARY | 2024-11-05 15:50 | XMS_ITS | Encounter Summary ---
Author Organization [facility] Address [address] [place] [address] 7 [place] [address] Care Team Providers Care House Officer Name Role Phone Tiffany Morales MD Primary Care Provider [phone] Encounter Details Date Type Department Care Team (Late st Contact Info) Description 07/22/2022 Orders Only [facility] MEDICINE [address] [place], [place] [phone] Tiffany Morales MD [address] [place], [place] [phone] Candidiasis (Primary Dx) Social History Tobacco Use Types [...] suspected to have Coronavirus/COVID-19? No / Unsure 07/18/2022 1:08 PM EST documented as of this encounter Plan of Treatment Not on file documented as of this encounter Visit Diagnoses Diagnosis Candidiasis- Primary documented in this encounter Care Teams House Officer Relationship Specialty Start Date End Date Tiffany Morales MD [address] [place] [address] PCP - General Internal Medicine 07/02/14 documented as of this encounter
[2024-11-05 15:55] LABS: Bacterial Vaginosis PCR POSITIVE (Negative); Candida Group PCR NOT DETECTED (Not Detect); Candida glab krusei PCR NOT DETECTED (Not Detect); Trichomonas vaginalis PCR NOT DETECTED (Not Detect)
[2024-11-05 16:27] LABS: CT PCR NOT DETECTED (Not Detect.); NG PCR NOT DETECTED (Not Detect.)
== END 2024-11-05 14:25 | disposition home or self-care (01) ==
LOC: HO.LNP 14:24
PROVIDERS: Visit Provider Pediatrics
DX: N76.0 Acute vaginitis (principal)
CPT/HCPCS: 81515; 87491; 87591

== ENCOUNTER 2024-12-01 18:31 | Outpatient (REF) | payer OTHER, SELFPAY ==
--- NOTE | ~2024-12-01 | MR_ITS ---
CLINICAL HISTORY: acute pain Exam: MRI of the right knee without intravenous contrast. Comparison: None. Findings: The anterior and posterior cruciate ligaments are intact. No meniscal tears are identified. Quadriceps tendon and patellar tendon are intact. Nonspecific prepatellar edema. There is edema within the quadriceps fat pad with a posterior convex border. Edema both superficial and deep to the medial collateral ligament with subtle increased intrasubstance signal intensity within the MCL. No disruption of the fibers of the identified. Lateral collateral complex is intact. No discrete cartilage defects. Moderate-sized knee joint effusion. No fracture. Impression: 1. No meniscal tear. 2. Grade 1 sprain of the medial collateral ligament. 3. Nonspecific prepatellar soft tissue swelling with edema in the quadriceps fat pad. These findings are typically seen in association with anterior knee pain. This document has been electronically signed by: Colby Perkins MD on 12/02/2024 08:49:35
== END 2024-12-01 18:32 | disposition home or self-care (01) ==
LOC: HO.MRI 18:31
PROVIDERS: PCP Internal Medicine; Visit Provider Registered Nurse
DX: M25.561 Pain in right knee (principal)
CPT/HCPCS: 73721

== ENCOUNTER → 2024-12-01 18:32 | Outpatient (BNV) | payer OTHER, SELFPAY | PROVIDERS: PCP Internal Medicine; Visit Provider Radiology Diagnostic Radiology | DX: M79.661 Pain in right lower leg (principal) | CPT/HCPCS: 73721 ==

== ENCOUNTER 2024-12-31 11:11 | Outpatient (REF) | payer OTHER, SELFPAY ==
--- OUTSIDE RECORDS SUMMARY | 2024-12-31 12:37 | XMS_ITS | Encounter Summary ---
Author Organization [email or web address] Address [address] [place] [address] 7 [place] [address] Care Team Providers Care Molder Shoulder Pad Name Role Phone Tiffany Morales MD Primary Care Provider [phone] Encounter Details Date Type Department Care Team (Late st Contact Info) Description 12/28/2023 Orders Only [facility] CHC MED & PEDS [address] [place], [place] [phone] Tiffany Morales MD [address] [place] [address] Acute pain of right knee (Primary Dx); Primary hypertension Social History Tobacco Use Types Packs/Day Years Used Date Smoking Tobacco: Never Smokeless Tobacco: Never Housing Stability Answer Date Recorded What is your housing situation today? I do not have housing (Staying with others, in a hotel, in a [facility], living outside on the street, on a [...] as of this encounter Plan of Treatment Upcoming Encounters Date Type Department Care Team (Late st Contact Info) Description 02/07/2025 2:00 PM EDT Office Visit [facility] MED & PEDS [address] [place] [address] Tiffany Morales MD [address] [place] [address] documented as of this encounter Visit Diagnoses Diagnosis Acute pain of right knee- Primary Primary hypertension Unspecified essential hypertension documented in this encounter Care Teams Molder Shoulder Pad Relationship Specialty Start Date End Date Tiffany Morales MD [address] [place] [address] PCP - General Internal Medicine 07/02/14 documented as of this encounter
[2024-12-31 15:48] LABS: Bacterial Vaginosis PCR NEGATIVE (Negative); Candida Group PCR DETECTED (Not Detect); Candida glab krusei PCR NOT DETECTED (Not Detect); Trichomonas vaginalis PCR NOT DETECTED (Not Detect)
[2024-12-31 16:20] LABS: CT PCR NOT DETECTED (Not Detect.); NG PCR NOT DETECTED (Not Detect.)
== END 2024-12-31 11:12 | disposition home or self-care (01) ==
LOC: HO.CHCLNP 11:11
PROVIDERS: Visit Provider Internal Medicine
DX: Z11.8 Encounter for screening for other infectious and parasitic diseases (principal); N89.8 Other specified noninflammatory disorders of vagina
CPT/HCPCS: 81515; 87491; 87591

== ENCOUNTER 2025-03-05 11:19 | Outpatient (REF) | payer OTHER, SELFPAY ==
[2025-03-05 14:20] LABS: Appearance Urine Turbid; Glucose Urine UA Negative (Negative); PH 5.5 (5.0-9.0); Specific Gravity - Urine 1.025 (1.005-1.025)
--- OUTSIDE RECORDS SUMMARY | 2025-03-05 14:35 | XMS_ITS | Encounter Summary ---
Author Organization [employer] Address [address] [place] [address] 7 [place] [address] Care Team Providers Care Activities Assistant Name Role Phone Tiffany Morales MD Primary Care Provider [phone] Encounter Details Date Type Department Care Team (Late st Contact Info) Description 07/03/2024 Orders Only [facility] CHC MED & PEDS [address] [place], [place] [phone] Tiffany Morales MD [address] [place], [place] [phone] Vaginal discharge (Primary Dx) Social History Tobacco [...] Upcoming Encounters Date Type Department Care Team ([facility] st Contact Info) Description 03/21/2025 2:00 PM EDT Office Visit [facility] MED & PEDS [address] [place] [address] Tiffany Morales MD [address] [place] [address] documented as of this encounter Visit Diagnoses Diagnosis Vaginal discharge- Primary Leukorrhea, not specified as infective documented in this encounter Additional Health Concerns Assessment Noted Time PHQ-9 Depression Total Score: 0 02/02/20 1:47 PM EDT documented as of this encounter Care Teams Activities Assistant Relationship Specialty Start Date End Date Tiffany Morales MD [address] [place] [address] PCP - General Internal Medicine 07/02/14 documented as of this encounter
--- OUTSIDE RECORDS SUMMARY | 2025-03-05 14:35 | XMS_ITS | Encounter Summary ---
Author Organization [employer] Address [address] [place] [address] 7 [place] [address] Care Team Providers Care Canary Raiser Name Role Phone Tiffany Morales MD Primary Care Provider [phone] Reason for Visit * Reason Comments Med Refill Encounter Details Date Type Department Care Team ([facility] st Contact Info) Description 04/14/2023 Refill [facility] CHC MED & PEDS [address] [place], [place] [phone] Tiffany Morales MD [address] [place] [address] Social History Tobacco Use Types Packs/Day Years Used Date Smoking Tobacco: Never Smokeless Tobacco: Never Housing Stability Answer Date Recorded What is your housing situation today? I do not have housing (Staying with others, in a hotel, in a jail, living outside on the street, on a [...] Care Team (Late st Contact Info) Description 03/21/2025 2:00 PM EDT Office Visit [facility] MED & PEDS [address] [place] [address] Tiffany Morales MD [address] [place] [address] documented as of this encounter Visit Diagnoses Not on filedocumented in this encounter Care Teams Canary Raiser Relationship Specialty Start Date End Date Tiffany Morales MD [address] [place] [address] PCP - General Internal Medicine 07/02/14 documented as of this encounter
--- OUTSIDE RECORDS SUMMARY | 2025-03-05 14:35 | XMS_ITS | Encounter Summary ---
Author Organization [employer] Address [address] [place] [address] 7 [place] [address] Care Team Providers Care Wireless Sales Manager Name Role Phone Tiffany Morales MD Primary Care Provider [phone] Reason for Visit * Reason Comments Med Refill Encounter Details Date Type Department Care Team ([facility] Info[facility] Description 10/25/2022 Refill [facility] MED & PEDS [address] [place], [place] [phone] Tiffany Morales MD [address] [place] [address] Essential (primary) hypertension Social History Tobacco Use [...] Upcoming Encounters Date Type Department Care Team ([facility] Contact Info) Description 03/21/2025 2:00 PM EDT Office Visit [facility] CHC MED & PEDS [address] [place], [place] [phone] Tiffany Morales MD [address] [place], [place] [phone] documented as of this encounter Visit Diagnoses Diagnosis Essential (primary) hypertension Unspecified essential hypertension documented in this encounter Care Teams Wireless Sales Manager Relationship Specialty Start Date End Date Tiffany Morales MD [address] [place] [address] PCP - General Internal Medicine 07/02/14 documented as of this encounter
--- OUTSIDE RECORDS SUMMARY | 2025-03-05 14:35 | XMS_ITS | Encounter Summary ---
Author Organization [employer] Address [address] [place] [address] 7 [place] [address] Care Team Providers Care Volunteer Manager Name Role Phone Tiffany Morales MD Primary Care Provider [phone] Encounter Details Date Type Department Care Team (Late st Contact Info) Description 03/05/2024 Orders Only [facility] CHC MED & PEDS [address] [place], [place] [phone] Tiffany Morales MD 505 [place], [place] [phone] BV (bacterial vaginosis) (Primary Dx) Social History Tobacco Use Types Packs/Day Years Used Date Smoking Tobacco: Never Smokeless Tobacco: Never Depression Answer Date Recorded Patient Health Questionnaire-9 Score 0 02/02/2024 Patient Health Questionnaire-9 Score 0 02/02/2024 Last PHQ-9: Questionnaire Data Not on file 0 02/02/2024 Housing Stability Answer Date Recorded What is your housing situation today? I have lyn dobsb 01/29/[address] you li [...] Upcoming Encounters Date Type Department Care Team ([facility] st Contact Info) Description 03/21/2025 2:00 PM EDT Office Visit [facility] MED & PEDS [address] [place] [address] Tiffany Morales MD [address] [place] [address] documented as of this encounter Procedures Procedure [...] AM EDT Narrative 03/18/2024 12:48 PM EDT [address] [address] [address] Scan Report Signed Patient: Abbie Salas MR#: [id number] : 1980 Acct:[id number] Age/Sex: 44 / F ADM Date: 03/18/24 Loc: .ED Attending Dr: Ordering Physician: Fuentes Arroyo Date of Service: 03/18/24 Procedure(s): CT cervical spine wo IV con Accession Number(s): [id number] cc: Tiffany Morales MD; Fuentes Arroyo EXAMINATION: [...] <Electronically signed by Tavon Cotton Jr, DO in OV> 03/18/24 1245 DD/ 1139 TD/TT: 03/18/24 1205 Hris Analyst: RAMOS Procedure Note Donotuseinterpreter, Image - 03/18/[address] [address] [address] Scan Report Signed Patient: Scott Salas#: [id number] : 1980Acct:[id number] Age/Sex: 44 / FADM Date: 03/18/24 Loc: HO.ED Attending Dr: Ordering Physician: Fuentes Arroyo Date of Service: 03/18/24 Procedure(s): CT cervical spine wo IV con Accession Number(s): [id number] cc: Tiffany Morales MD; Fuentes Arroyo EXAMINATION: [...] 03/18/24 1245 DD/ 1139 TD/TT: 03/18/24 1205 Hris Analyst: RAMOS [facility] External Provider IMG CT PROCEDURES Final Result * CT Head w/o Contrast (03/18/2024 11:27 AM EDT) Anatomical Region Laterality Modality Head, Neck Computed Tomogra phy 03/18/2024 11:2 7 AM EDT Narrative 03/18/2024 12:41 PM EDT [address] [address] [address] Scan Report Signed Patient: Abbie Salas MR#: [id number] : 1980 Acct:[id number] Age/Sex: 44 / F ADM Date: 03/18/24 Loc: HO.ED Attending Dr: Ordering Physician: Fuentes Arroyo Date of Service: 03/18/24 Procedure(s): CT head/brain wo IV con Accession Number(s): [id number] cc: Tiffany Morales MD; Fuentes Arroyo EXAMINATION: [...] By: <Electronically signed by Tavon Cotton Jr, in OV> 03/18/24 1238 DD/ 1127 TD/TT: 03/18/24 1205 Hris Analyst: RAMOS Procedure Note Donotuseinterpreter, Image - 03/18/[address] [address] [address] Scan Report Signed Patient: Scott Salas#: [id number] : 1980Acct:[id number] Age/Sex: 44 / FADM Date: 03/18/24 Loc: HO.ED Attending Dr: Ordering Physician: Fuentes Arroyo Date of Service: 03/18/24 Procedure(s): CT head/brain wo IV con Accession Number(s): [id number] cc: Tiffany Morales MD; Fuentes Arroyo EXAMINATION: [...] 03/18/24 1238 DD/ 1127 TD/TT: 03/18/24 1205 Hris Analyst: RAMOS [facility] External Provider IMG CT PROCEDURES Final Result documented in this encounter Visit Diagnoses Diagnosis BV (bacterial vaginosis)- Primary Unspecified vaginitis and vulvovaginitis documented in this encounter Additional Health Concerns Assessment Noted Time PHQ-9 Depression Total Score: 0 02/02/20 1:47 PM EDT documented as of this encounter Care Teams Volunteer Manager Relationship Specialty Start Date End Date Tiffany Morales MD [address] [place] [address] PCP - General Internal Medicine 07/02/14 documented as of this encounter
--- OUTSIDE RECORDS SUMMARY | 2025-03-05 14:35 | XMS_ITS | Encounter Summary ---
Author Organization [employer] Address [address] [place] [address] 7 [place] [address] Care Team Providers Care Furniture Stainer Name Role Phone Tiffany Morales MD Primary Care Provider [phone] Encounter Details Date Type Department Care Team (Late st Contact Info) Description 01/27/2025 Orders Only [facility] CHC MED & PEDS [address] [place], [place] [phone] Tiffany Morales MD 505 [place] [address] Bacterial vaginosis (Primary Dx) Social History Tobacco Use Types [...] Upcoming Encounters Date Type Department Care Team ([facility] st Contact Info) Description 03/21/2025 2:00 PM EDT Office Visit [facility] MED & PEDS [address] [place] [address] Tiffany Morales MD [address] [place] [address] documented as of this encounter Visit Diagnoses Diagnosis Bacterial vaginosis- Primary Unspecified vaginitis and vulvovaginitis documented in this encounter Additional Health Concerns Assessment Noted Time PHQ-9 Depression Total Score: 0 02/02/20 24 1:47 PM EDT documented as of this encounter Care Teams Furniture Stainer Relationship Specialty Start Date End Date Tiffany Morales MD [address] [place] [address] PCP - General Internal Medicine 07/02/14 documented as of this encounter
--- OUTSIDE RECORDS SUMMARY | 2025-03-05 14:35 | XMS_ITS | Encounter Summary ---
Author Organization [employer] Address [address] [place] [address] Care Team Providers Care Polisher Implant Name Role Phone Tiffany Morales MD Primary Care Provider [phone] Reason for Referral * Imaging (Routine) - Closed Specialty Diagnoses / Procedures Referred By Contdiandra menjivar Referred To Contact Diagnoses Right flank pain Procedures US Renal Complete Tiffany Morales MD [address] [place] [address] Phone: tel: fax: [address] Phone: tel: fax: Referral ID Status Reason Start Date Expiration Date Visits Re quested Visits Authorized [id number] Closed 10/17/2022 04/15/2023 1 1 Encounter Details Date Type Department Care Team (Late st Contact Info) Description 10/17/2022 Orders Only [facility] CHC MED & PEDS [address] [place] [address] Tiffany Morales MD [address] [place] [address] Right flank pain (Primary Dx) Social History [...] Description 03/21/2025 2:00 PM EDT Office Visit [facility] MED & PEDS [address] [place] [address] Tiffany Morales MD [address] [place] [address] Scheduled Orders Name Type Priority Associated Diagnoses Orde r Schedule US Renal Complete Imaging Routine Right flank pain Expected: 10/17/2022 (Approximate), Expires: 10/18/2023 documented as of this encounter Visit Diagnoses Diagnosis Right flank pain- Primary Abdominal pain, unspecified site documented in this encounter Care Teams Polisher Implant Relationship Specialty Start Date End Date Tiffany Morales MD [address] [place] [address] PCP - General Internal Medicine 07/02/14 documented as of this encounter
--- OUTSIDE RECORDS SUMMARY | 2025-03-05 14:35 | XMS_ITS | Encounter Summary ---
Author Organization [employer] Address [address] [place] [address] 7 [place] [address] Care Team Providers Care Slurry Worker Name Role Phone Tiffany Morales MD Primary Care Provider [phone] Encounter Details Date Type Department Care Team ([facility] st Contact Info) Description 01/20/2024 Telephone [facility] MED & PEDS [address] [place], [place] [id number] Raiza Liao MD [address] [place], [place] [id number] Social History Tobacco Use Types Packs/Day Years Used Date Smoking Tobacco: Never Smokeless Tobacco: Never Housing Stability Answer Date Recorded What is your housing situation today? I do not have housing (Staying with others, in a hotel, in a chcf, living outside on the street, on a [...] the past 12 months, has t he [employer], gas, oil or water [employer] threatened to shut off services in your [...] 03/21/2025 2:00 PM EDT Office Visit [facility] MED & PEDS [address] [place] [address] Tiffany Morales MD [address] [place] [address] documented as of this encounter Visit Diagnoses Not on filedocumented in this encounter Care Teams Slurry Worker Relationship Specialty Start Date End Date Tiffany Morales MD [address] [place] [address] PCP - General Internal Medicine 07/02/14 documented as of this encounter
--- OUTSIDE RECORDS SUMMARY | 2025-03-05 14:35 | XMS_ITS | Encounter Summary ---
Author Organization [facility] Address [address] [place] [address] 7 [place] [address] Care Team Providers Care Deicer Tester Name Role Phone Tiffany Morales MD Primary Care Provider [phone] Encounter Details Date Type Department Care Team (Latest Contact Info) Description 11/20/2018 Abstract [facility] CONVERSIONS Dental, Provider, DDS Social History [...] Upcoming Encounters Date Type Department Care Team ( st Contact Info) Description 03/21/2025 2:00 PM EDT Office Visit [facility] MED & PEDS [address] [place] [address] Tiffany Morales MD [address] [place] [address] documented as of this encounter Visit Diagnoses Not on filedocumented in this encounter Care Teams Deicer Tester Relationship Specialty Start Date End Date Tiffany Morales MD [address] [place] [address] PCP - General Internal Medicine 07/02/14 documented as of this encounter
--- OUTSIDE RECORDS SUMMARY | 2025-03-05 14:35 | XMS_ITS | Encounter Summary ---
Author Organization [employer] Address [address] [place] [address] [address] [place] [address] Care Team Providers Care Category Specialist Name Role Phone Tiffany Morales MD Primary Care Provider [phone] Encounter Details Date Type Department Care Team (Late st Contact Info) Description 07/29/2024 Orders Only [facility] MED & PEDS [address] [place], [place] [phone] Carlos Boyer MD [address] [place] [address] Social History Tobacco Use Types Packs/Day Years [...] Description 03/21/2025 2:00 PM EDT Office Visit [facility] MED & PEDS [address] [place] [address] Tiffany Morales MD [address] [place] [address] documented as of this encounter Visit Diagnoses Not on filedocumented in this encounter Additional Health Concerns Assessment Noted Time PHQ-9 Depression Total Score: 0 02/02/20 24 1:47 PM EDT documented as of this encounter Care Teams Category Specialist Relationship Specialty Start Date End Date Tiffany Morales MD [address] [place] [address] PCP - General Internal Medicine 07/02/14 documented as of this encounter
--- OUTSIDE RECORDS SUMMARY | 2025-03-05 14:35 | XMS_ITS | Clinical Summary ---
Author Organization [employer] Address [address] [place] [address] 7[address] [place] [address] Care Team Providers Care Account Installation Specialist Name Role Phone Tiffany Morales MD Primary Care Provider Allergies Active Allergy Reactions Criticality Noted Date Comments Gramineae Pollens 05/24/2022 Seasonal allergy Medications diphenhydrAMINE (Benadryl Allergy) 25 MG tablet Take 1 tablet by mouth every 12 (twelve) hours. 10/29/19 22 Active cholecalciferol (Vitamin D-3) 50 MCG (1999 UT) capsule Take 1 capsule by mouth 1 (one) time each day. 06/22/19 22 Active Misc. Devices (Pulse Oximeter) misc To use every 4-6 hours 06/22/19 22 Active hydrOXYzine HCl (Atarax) 25 MG tablet Take 1 tablet by mouth every 12 (twelve) hours if needed. 10/13/19 21 Active mupirocin (Bactroban) 2 % ointment Apply topically every 8 (eight) hours. A small amount to the affected area 07/12/19 20 Active etonogestrel-elut ing (Nexplanon) 68 mg contraceptive implant Active Blood Pressure kit Take by on arm route as directed Active acetaminophen (Tylenol) 500 MG tabletIndications :Acute pain of right knee Take 1-2 tablets (500-1,000 mg) by mouth every 8 (eight) hours if needed (pain or fever). 100 tablet 2 11/26/19 25 Active naproxen (Naprosyn) 500 MG tabletIndications :Acute pain of right knee Take 1 tablet (500 mg) by mouth if needed in the morning and at bedtime (pain or fever). 60 tablet 2 11/26/19 25 026 Active cyclobenzaprine (Flexeril) 10 MG tabletIndications :Acute midline low back pain without sciatica Take 1 tablet (10 mg) by mouth 3 times daily for 10 days. 30 tablet 12/25/19 25 Active dilTIAZem SR (Cardizem SR) 60 MG 12 hr capsuleIndication s:Primary hypertension TAKE ONE CAPSULE BY MOUTH TWICE DAILY 60 capsule 11 01/23/20 25 Active cetirizine (ZyrTEC) 10 MG tabletIndications :Seasonal allergies TAKE ONE TABLET TWICE DAILY 180 tablet 3 02/11/20 25 Active cetirizine (ZyrTEC) 10 MG tabletIndications :Seasonal allergies Take 1 tablet (10 mg) by mouth 2 times daily. 180 tablet 3 01/24/20 24 025 Discontinued metroNIDAZOLE (Flagyl) 500 MG tabletIndications :Bacterial vaginosis Take 1 tablet (500 mg) by mouth 2 times daily for 7 days. 14 tablet 01/28/20 25 025 Active Problems Problem Noted Date Diagnosed Date Acute midline low back pain without sciatica 01/2025 Assessment & Plan (12/24/2024 2:06 PM EDT): Acute low back pain, started about 1 week ago, worsened 3 days ago after outstretching, no neurologic deficit, pain is localized, will prescribe tramadol/prednisone and muscle relaxant Concussion with no loss of consciousness 024 [...] Encounters Date Type Department Care Team Description 03/05/2025 Orders Only [facility] [address] [place] [address] Tiffany Morales MD Other chest pain 02/27/2025 4:00 PM EDT Office Visit [facility] [address] [place] [address] Tiffany Morales MD Other chest pain (Primary Dx); Primary hypertension 02/27/2025 Travel 02/26/2025 [facility] [address] [place] [address] Tiffany Morales MD ECHOCARDIOGRAM ORDER 02/26/2025 Orders Only [facility] [address] [place] [address] Tiffany Morales MD Other chest pain (Primary Dx) 02/08/2025 Refill [facility] [address] [place], [place] [phone] [place] Carlos Lucio MD Seasonal allergies 02/06/2025 Telephone [facility] [address] [place] [address] Tiffany Morales MD 01/30/2025 Patient Outreach [facility] [address] [place] [address] Tiffany Morales MD Pre-visit Planning (Pre visit planning LVM ) 01/27/2025 Orders Only [facility] [address] [place] [address] Tiffany Morales MD Bacterial vaginosis (Primary Dx) 01/21/2025 Refill [facility] [address] [place] [address] Tiffany Morales MD Primary hypertension 12/31/2024 Orders Only [facility] [address] [place] [address] Carlos Boyer MD 12/31/2024 Orders Only [facility] [address] [place] [address] Carlos Boyer MD Vaginal itching (Primary Dx) 12/30/2024 Orders Only [facility] [address] [place] [address] Carlos Boyer MD 12/24/2024 2:15 PM EDT Office Visit [facility] [address] [place] [address] Carlos Boyer MD Acute midline low back pain without sciatica (Primary Dx) 12/24/2024 Travel 12/13/2024 4:00 PM EDT Office Visit [facility] [address] [place] [address] Tiffany Morales MD Back muscle spasm (Primary Dx) 12/13/2024 Travel from Last 3 Months Immunizations Immunization Administration [...] Sign Reading Time Taken Comments Blood Pressure 129/81 02/27/2025 3:57 PM EDT Pulse 65 02/27/2025 3:57 PM EDT Temperature 36.9 C (98.4 F) 12/24/2024 1:53 PM EDT Respiratory Rate 20 02/27/2025 3:57 PM EDT Oxygen Saturation 97% 02/27/2025 3:57 PM EDT Inhaled Oxygen Concentration - - Weight 82.1 kg (181 lb) 02/27/2025 3:57 PM EDT Height 161.3 cm (5' 3.5 ) 02/27/2025 3:57 PM EDT Body Mass Index 31.56 02/27/2025 3:57 PM EDT Plan of Treatment Upcoming Encounters Date Type Department Care Team (Late st Contact Info) Description 03/21/2025 2:00 PM EDT Office Visit [facility] [address] [place] [address] Tiffany Morales MD [address] [place] [address] Health Maintenance Due Date Last Done Comments CT Colonography 1980 Colonoscopy 1980 Colorectal Cancer Screening 1980 FIT DNA/Cologuard 1980 FIT 1980 FOBT 1980 Sigmoidoscopy 1980 Disability Screening 1980 Alcohol/Substance Use Screening 1992 Family Planning (PISQ) 01/08/1995 HPV Vaccines (1 - 3-dose series) 01/08/1995 Hepatitis B Vaccines (1 of 3 - 19+ 3-dose series) 01/08/1999 SDOH Screening 01/28/2025 01/29/2024 Depression Screening 02/01/2025 02/02/2024, 02/02/20 COVID-19 Vaccine ( season) 2025 05/08/2021, 07/17/2020, 06/17/2020 Influenza Vaccine (#1) 2025 3, 03/10/2022, 03/11/2021, Additional history exists Dental X-Ray: Bitewings 03/27/2025 03/26/20 24, 11/20/2018, 11/13/2015, Additional history exists Dental Oral Exam 04/13/2025 10/11/2024, 01/2024, 12/10/2018, Additional history exists Dental Prophylaxis 04/13/2025 10/11/2024, 1 , 05/27/2019, Additional history exists Tobacco Screening 02/27/2026 02/27/2025 Mammogram 04/10/2026 04/10/2024, 03/19, 03/16/2022, Additional history [...] Years) and At-Risk Patients (6 to 49) Years Aged Out No longer eligible based on patient's age to complete this topic RSV under 20 months Aged Out No longe r eligible based on patient's age to complete this topic Rotavirus Vaccines Aged Out No longer eligible based on patient's age to complete this topic Procedures Procedure Name Priority Date/Time Associated Diagnosis Comments URINALYSIS WITH REFLEX MICROSCOPIC Routine 03/05/2025 11:35 AM EDT Other chest pain ECG 12-LEAD Routine 02/27/2025 5:19 PM EDT Other chest pain CHLAMYDIA/N. GONORRHOEAE RNA, TMA, UROGENITAL Routine 12/31/2024 9:30 AM EDT Vaginal itching BACTERIAL VAGINOSIS PANEL Routine 12/31/2024 9:30 AM EDT Vaginal itching PROPHYLAXIS - ADULT Routine 10/11/2024 8 :00 AM EDT Defective dental judaism PERIODIC ORAL EVALUATION - ESTABLISHED PATIENT Routine 10/11/2024 8:00 AM EDT Defective dental judaism BI MAMMOGRAM SCREENING TOMOSYNTHESIS BILATERAL Routine 04/10/2024 [...] Recently Relevant to Health Maintenance Results * Urinalysis w/reflex microscopic (03/05/2025 11:35 AM EDT) Color Urine Yellow [facility] Appearance Urine Turbid [facility] PH 5.5 5.0 - 9.0 [facility] Glucose Urine UA Negative Negative mg/dL [facility] Urine Blood Negative Negative [facility] Specific [place] - Urine 1.025 1.005 - 1.025 [facility] Urine Protein Negative Neg-Trace mg/dL [facility] Urine Ketones Negative Negative mg/dL [facility] Nitrite Urine Negative Negative [facility] Leukocyte Esterase Urine Negative Negative [facility] Urine (Urine, Random) 03/05/2025 11:35 AM EDT 03/05/2025 2:11 PM EDT Narrative [facility] - 03/05/2025 2:20 PM EDT [id number], Clean Catch us Tiffany Morales MD LAB URINE ORDERABLES Final Result [facility] [address] [place] [phone] * ECG 12 lead (02/27/2025 5:19 PM EDT) Narrative Tiffany Morales MD - 02/27/2025 5:19 PM EDT Heart rate 52 bpm. [place] -4 degrees. Sinus rhythm. RR' in V2. Minor inferior repolarization disturbance. No sign of left atrial enlargement. No sign of hypertrophy. No ST elevation or ST depression us Tiffany Morales MD ECG ORDERABLES Final Resul t * (ABNORMAL) Bacterial Vaginosis (12/31/2024 9:30 AM EDT) TRICHOMONAS VAGINALIS DETECTION BY PCR NOT DETECTED Not Detect [facility] BACTERIAL VAGINOSIS DETECTION BY PCR NEGATIVE Negative [facility] Comment:The BV organism targ ets of the Xpert Xpress MVP test can becommensal in women; Xpert Xpress MVP positive results forbacterial vaginosis should be considered in conjunction withother clinical and patient information to determine thedisease status. Organisms that are not detected by the XpertXpress MVP test have also been reported to be associatedwith BV and aerobic vaginitis.The Xpert Xpress MVP test performance has not been evaluatedin patients under the age of 14. BISI GROUP DETECTION BY PCR DETECTED(A) Not Detect [facility] Bisi glab krusei PCR NOT DETECTED Not Detect [facility] 12/31/2024 9:30 AM EDT 12/31/2024 2:36 PM EDT us Carlos Lucio MD LAB MICROBIOLOGY - GENERAL ORDERABLES Final Result Performing Organization Address City/[facility] Co de Phone Number [facility] [address] [place] [phone] [phone] * Chlamydia/N. Gonorrhoeae RNA, TMA, Urogenitial (12/31/2024 9:30 AM EDT) CT PCR NOT DETECTED Not Detect. [facility] Comment:A not detected test result does not exclude the possibilityof infection because test results can be affected byimproper specimen collection, concurrent antibiotic therapy,or the number of organisms in the specimen which may bebelow the sensitivity of the test. As with many diagnostictests, results from the Xpert CT/NG assay should beinterpreted in conjunction with other laboratory andclinical data available to the clinician.Xpert CT/NG performance has not been evaluated in patientsless than 14 years of age. The assay should not be used forthe evaluationof suspected sexual abuse or for other medico-legalindications. Additional testing is recommended in anycircumstance when false positive or false negative resultscould lead to adverse medical, social or psychologicalconsequences. NG PCR NOT DETECTED Not Detect. [facility] Comment:A not detected test result does not exclude the possibilityof infection because test results can be affected byimproper specimen collection, concurrent antibiotic therapy,or the number of organisms in the specimen which may bebelow the sensitivity of the test. As with many diagnostictests, results from the Xpert CT/NG assay should beinterpreted in conjunction with other laboratory andclinical data available to the clinician.Xpert CT/NG performance has not been evaluated in patientsless than 14 years of age. The assay should not be used forthe evaluationof suspected sexual abuse or for other medico-legalindications. Additional testing is recommended in anycircumstance when false positive or false negative resultscould lead to adverse medical, social or psychologicalconsequences. 12/31/2024 9:30 AM EDT 12/31/2024 2:36 PM EDT Carlos Lucio MD LAB MICROBIOLOGY - GENERAL ORDERABLES Final Result Performing Organization Address City/[facility] Co de Phone Number [facility] [address] [place] [address] [phone] * BI Mammogram Screening Tomosynthesis Bilateral (04/10/2024 2:40 PM EDT) Anatomical Region Laterality Modality Breast Bilateral Mammography 04/10/2024 2:40 PM EDT Narrative 04/22/2024 4:19 PM EST [facility] [address] [place] [address] Mammography Report Signed Patient: Abbie Salas MR#: [id number] : 1980 Acct:[id number] Age/Sex: 44 / F ADM Date: 04/10/24 Loc: HO.MAMMO Attending Dr: Tiffany Morales MD Ordering Physician: Tiffany Morales MD Results: 1 Negative Date of Service: 04/10/24 Follow Up: 1 Year From [facility] Mammogram Procedure(s): MM tomosynthesis screening BI Accession Number(s): [id number] cc: Tiffany Morales MD EXAMINATION: MM SCREENING [...] by: Haylee Cabral DO 04/22/2024 04:15 PM EST Dictated By: Tyminski,Haylee DO Signed By: <Electronically signed by Haylee Cabral DO in OV> 04/22/24 1615 DD/ 144 TD/TT: 04/10/241439 Psychological Aide: Procedure Note Dondarenter, [facility] - [facility] [address] [place], [place] [address] Mammography Report Signed Patient: Scott Salas#: [id number] : 1980Acct:[id number] Age/Sex: 44 / FADM Date: 04/10/24 Loc: HO.MAMMO Attending Dr: Tiffany Morales MD Ordering Physician: Tiffany Morales MDResults: 1 Negative Date of Service: 04/10/24Follow Up: 1 Year From Orig inal Mammogram Procedure(s): MM tomosynthesis screening BI Accession Number(s): [id number] cc: Tiffany Morales MD EXAMINATION: MM SCREENING [...] by: Haylee Cabral DO 04/22/2024 04:15 PM EST Dictated By: Haylee Cabral DO Signed By: <Electronically signed by Haylee Cabral DO in OV> 04/22/24 1615 DD/ 1440 TD/TT: 04/10/24 1440 Psychological Aide: us Tiffany Morales MD IMG BI PROCEDURES Edited Re sult - Final * Hepatitis C Viral RNA, Quantitative, Real-Time PCR (02/08/2024 8:38 AM EDT) Pathologist [facility] Hepatitis C Viral Load <15 NOT DETECTED NOT DETECTED IU/mL [facility] HCV Log PCR <1.18 NOT DETECTED NOT DETECTED Log IU/mL [facility] Comment:For additional infor mation, please refer tohttp://education.Lollipuff/faq/AHH34w4(This link is being provided for informational/educational purposes only.)THIS TEST WAS PERFORMED AT:[facility] [place] [phone] PRITCHARD MD Blood Venous blood specimen / Unknown 02/08/2024 8:38 AM EDT 02/08/2024 2:14 PM EDT us Tiffany Morales MD LAB BLOOD ORDERABLES Final Result [facility] [address], [place] [phone] * HIV-1/2 Antigen and Antibodies, Fourth Generation, with Reflexes (02/08/2024 8:38 AM EDT) Pathologist [facility] HIV AB/AG Nonreactive Nonreactive [facility] Comment:HIV-1 p24 Ag and/or HIV-1/HIV-2 Ab not detected.A test result that is nonreactive does not exclude thepossibility of exposure to or infection with HIV-1 and/orHIV-2. Nonreactive results in this assay for individualswith prior exposure to HIV-1 and/or HIV-2 may be due toantigen and antibody levels that are below the limit ofdetection of this assay.[employer] HIV Ag/Ab Combo assay result andsupplemental assay results should be interpreted inconjunction with the patient's clinical presentation,history and other laboratory results. If the results areinconsistent with clinical evidence, additional testing issuggested to confirm the result. Blood Venous blood specimen / Unknown 02/08/2024 8:38 AM EDT 02/08/2024 2:14 PM EDT Tiffany Morales MD LAB BLOOD ORDERABLES Final Result Performing Organization Address [facility] Co de Phone Number [facility] [address] [place] [phone] * Lipid Panel, Standard (02/08/2024 8:38 AM EDT) Triglycerides 83 <150 mg/dL [facility] Comment:Desirable Triglyceri de: less than 150 mg/dLBorderline High Triglyceride 150-199 mg/dLHigh Triglyceride: 200-499 mg/dLVery High Triglyceride: greater than or equal to 5OO mg/dL Cholesterol 154 <200 mg/dL [facility] Comment:Desirable Cholestero l: less than 200 mg/dLBorderline High Cholesterol: 200-239 mg/dLHigh Cholesterol: greater than 239 mg/dL LDL Cholesterol Calculated 89 <100 mg/dL [facility] Comment:Desirable LDL: less than 100 mg/dLNear Optimal/Above Optimal LDL: 110- 129 mg/dLBorderline High LDL: 130-159 mg/dLHigh LDL: 160-189 mg/dLVery High LDL: greater than or equal to 190 mg/dL HDL Cholesterol 49 >40 mg/dL [facility] Comment:Desirable HDL: great er than 40 mg/dL Note: This HDL assay may give artificially low results in patients with liver disease. Blood Venous blood specimen / Unknown 02/08/2024 8:38 AM EDT 02/08/2024 2:14 PM EDT us Tiffany Morales MD LAB BLOOD ORDERABLES Final Result Performing Organization Address [facility]/ZIP Co de Phone Number [facility] [address] [place] [phone] * Thinprep TIS PAP And HPV mRNA E6/E7, CT/NG, TRICH (06/11/2022 6:22 AM EST) Clinical Information: None given [employer] [facility] LMP: NONE GIVEN [facility] Prev. PAP: NONE GIVEN [facility] Prev. BX: NONE GIVEN [facility] SOURCE: None given [employer] Statement Of Adequacy: [employer] Comment: Satisfactory for evaluation. Endocervical/transformation zone component absent. Age and/or menstrual status not provided Interpretation/Re sult: Negative for intraepithelial lesion or malignancy. [employer] COMMENT: This Pap test has been evaluated with computer assisted technology. [employer] Quality Assurance Supervisor Final: [email or web address] Comment: KYRA GALINDO(ASCP) CT screening location: [place] [address] (Always Message) [facility] [employer] Comment: EXPLANATORY NOTE: The Pap is a [...] HPV nRNA E6/E7 Not Detected Not Detected [employer] Comment: Methodology: Can Technician-Mediated Amplification This assay detects E6/E7 viral messenger RNA (mRNA) from 14 high-risk HPV types (16,18,31,33,35,39,45,51,52,56,58,59,66,68). Cervical sources are required for HPV testing. If a vaginal source from a patient who has had a total hysterectomy with removal of cervix was submitted, please contact the testing laboratory for alternative testing options. For additional information, please refer to http://education.Lollipuff/faq/FQF798y4 (This link if provided for information/ educational purposes only.) Chlamydia trachomatis RNA, TMA, Urogenital NOT DETECTED NOT DETECTED [facility] Neisseria gonorrhoeae RNA, TMA, Urogenital NOT DETECTED NOT DETECTED [facility] (Always Message) [facility] Comment: The analytical performance characteristics of this assay, when used to test SurePath(TM) specimens have been determined by [facility]. The modifications have not been cleared or approved by the FDA. This assay has been validated pursuant to the CLIA regulations and is used for clinical purposes. For additional information, please refer to https://[employer] Cont[employer]ment.Lollipuff/faq/BSM258 (This link is being provided for information/ educational purposes only.) Trichomonas vaginalis, QL, TMA, PAP Vial NOT DETECTED NOT DETECTED [facility] Comment: The analytical performance characteristics of this assay have been determined by [facility]. The modifications have not been cleared or approved by the FDA. This assay has been validated pursuant to the CLIA regulations and is used for clinical purposes. For additional information, please refer to http://[employer].Lollipuff/ faq/Trichomonastma (This link is being provided for information/ educational purposes only.) 06/08/2022 1:1 3 PM EST Narrative [facility] - 06/11/2022 6:22 AM EST FASTING: UNKNOWN Clarissa TEE LAB PATHOLOGY ORDERABLES Final Result [facility] [address] [facility], [place] [phone] [facility] [address] [facility], ([address]) [place] [phone] from Last 3 Months or Most Recently Relevant to Health Maintenance Insurance HSN PARTIAL DENTAL - HSN PARTIAL (MEDICAID) Care Teams Account Installation Specialist Relationship Specialty Start Date End Date Tiffany Morales MD [address] [place] [phone] PCP - General Internal Medicine 07/02/14
--- OUTSIDE RECORDS SUMMARY | 2025-03-05 14:35 | XMS_ITS | Encounter Summary ---
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
--- OUTSIDE RECORDS SUMMARY | 2025-03-05 14:35 | XMS_ITS | Encounter Summary ---
Author Organization [employer] Address [address] [place] [address] 7 [place] [address] Care Team Providers Care Mobile Crane Operator Name Role Phone Tiffany Morales MD Primary Care Provider [phone] Encounter Details Date Type Department Care Team (Late st Contact Info) Description 09/12/2023 Orders Only [facility] [address] [place], [place] [phone] Tiffany Morales MD [address] [place] [address] Seasonal allergies (Primary Dx) Social History Tobacco [...] Description 03/21/2025 2:00 PM EDT Office Visit [facility] [address] [place] [address] Tiffany Morales MD [address] [place] [address] documented as of this encounter Visit Diagnoses Diagnosis Seasonal allergies- Primary Allergic rhinitis, cause unspecified documented in this encounter Care Teams Mobile Crane Operator Relationship Specialty Start Date End Date Tiffany Morales MD [address] [place] [address] PCP - General Internal Medicine 07/02/14 documented as of this encounter
--- OUTSIDE RECORDS SUMMARY | 2025-03-05 14:35 | XMS_ITS | Encounter Summary ---
Author Organization [employer] Address [address] [place] [address] Care Team Providers Care Mud Temperer Name Role Phone Tiffany Morales MD Primary Care Provider [phone] Reason for Referral * Imaging (Routine) - Pending Review Specialty Diagnoses / Procedures Referred By Contdiandra menjivar Referred To Contact Cardiology Diagnoses Other chest pain Procedures Transthoracic Echo (TTE) Complete Tiffany Morales MD [address] [place] [address] Phone: tel: fax: [address] Phone: tel: fax: Referral ID Status Reason Start Date Expiration Date Visits Requested Visits Authorized [id number] Pending Review Perform Procedure 02/26/2025 02/26/2026 1 1 Encounter Details Date Type Department Care Team (Late st Contact Info) Description 02/26/2025 Orders Only [facility] CHC MED & PEDS [address] [place], [place] [phone] Tiffany Morales MD [address] [place] [address] [phone] Other chest pain (Primary Dx) Social History Tobacco Use [...] Description 03/21/2025 2:00 PM EDT Office Visit [facility] CHC MED & PEDS [address] [place] [address] Tiffany Morales MD 505 [place] [address] Scheduled Orders Name Type Priority Associated Diagnoses Order Schedule Transthoracic Echo (TTE) Complete Echocardiography Routine Other chest pain Expected: 02/26/2025 (Approximate), Expires: 02/26/2027 Chlamydia/N. Gonorrhoeae RNA, TMA, Urogenitial Microbiology Routine Other chest pain Expected: 03/05/2025 (Approximate), Expires: 03/05/2026 HIV-1/2 Antigen and Antibodies, Fourth Generation, with Reflexes Lab Routine Other chest pain Expected: 03/05/2025 (Approximate), Expires: 03/05/2026 Hepatitis C Antibody with Reflex to HCV, RNA, Quantitative, Real-Time PCR Lab Routine Other chest pain Expected: 03/05/2025, Expires: 03/05/2026 RPR (Monitor) with Reflex to Titer Lab Routine Other chest pain Expected: 03/05/2025, Expires: 03/05/2026 Trichomonas vaginalis RNA, Qualitative, TMA, [facility] Lab Routine Other chest pain Expected: 03/05/2025, Expires: 03/05/2026 documented as of this encounter Procedures Procedure Name Priority Date/Time Associated Diagnosis Comments URINALYSIS WITH REFLEX MICROSCOPIC Routine 03/05/2025 11:35 AM EDT Other chest pain documented in this encounter Results * Urinalysis w/reflex microscopic (03/05/2025 11:35 AM EDT) Color Urine Yellow [facility] Appearance Urine Turbid [facility] PH 5.5 5.0 - 9.0 [facility] Glucose Urine UA Negative Negative mg/dL [facility] Urine Blood Negative Negative [facility] Specific Gate - Urine 1.025 1.005 - 1.025 [facility] Urine Protein Negative Neg-Trace mg/dL [facility] Urine Ketones Negative Negative mg/dL [facility] Nitrite Urine Negative Negative [facility] Leukocyte Esterase Urine Negative Negative [facility] Urine (Urine, Random) 03/05/2025 11:35 AM EDT 03/05/2025 2:11 PM EDT Narrative [facility] - 03/05/2025 2:20 PM EDT [id number], Clean Catch us Tiffany Morales MD LAB URINE ORDERABLES Final Result [facility] [address] [place] [address] [phone] documented in this encounter Visit Diagnoses Diagnosis Other chest pain- Primary documented in this encounter Additional Health Concerns Assessment Noted Time PHQ-9 Depression Total Score: 0 02/02/20 24 1:47 PM EDT documented as of this encounter Care Teams Mud Temperer Relationship Specialty Start Date End Date Tiffany Morales MD [address] [place] [phone] PCP - General Internal Medicine 07/02/14 documented as of this encounter
--- OUTSIDE RECORDS SUMMARY | 2025-03-05 14:35 | XMS_ITS | Encounter Summary ---
Author Organization [employer] Address [address] [place] [address] 7 [place] [address] Care Team Providers Care Tile Layer Supervisor Name Role Phone Tiffany Morales MD Primary Care Provider Encounter Details Date Type Department Care Team (Late st Contact Info) Description 07/22/2022 Orders Only [facility] MEDICINE [address] [place] [address] Tiffany Morales MD [address] [place], [place] [phone] Candidiasis (Primary Dx) Social History Tobacco Use [...] Description 03/21/2025 2:00 PM EDT Office Visit [facility] CHC MED & PEDS [address] [place], [place] [phone] Tiffany Morales MD [address] [place], [place] [phone] documented as of this encounter Visit Diagnoses Diagnosis Candidiasis- Primary documented in this encounter Care Teams Tile Layer Supervisor Relationship Specialty Start Date End Date Tiffany Morales MD [address] [place] [address] PCP - General Internal Medicine 07/02/14 documented as of this encounter
--- OUTSIDE RECORDS SUMMARY | 2025-03-05 14:35 | XMS_ITS | Encounter Summary ---
Author Organization [employer] Address [address] [place] [address] 7 [place] [address] Care Team Providers Care Security Systems Manager Name Role Phone Tiffany Morales MD Primary Care Provider [phone] Encounter Details Date Type Department Care Team (Late st Contact Info) Description 02/01/2024 Orders Only [facility] CHC MED & PEDS [address] [place], [place] [phone] Tiffany Morales MD [address] [place] [address] Subconjunctival hemorrhage of right eye (Primary Dx) [...] 2:00 PM EDT Office Visit [facility] MED & PEDS [address] [place] [address] Tiffany Morales MD [address] [place] [address] documented as of this encounter Visit Diagnoses Diagnosis Subconjunctival hemorrhage of right eye- Primary documented in this encounter Care Teams Security Systems Manager Relationship Specialty Start Date End Date Tiffany Morales MD [address] [place] [address] PCP - General Internal Medicine 07/02/14 documented as of this encounter
--- OUTSIDE RECORDS SUMMARY | 2025-03-05 14:35 | XMS_ITS | Encounter Summary ---
Author Organization [employer] Address [address] [place] [address] [place] [address] Care Team Providers Care Pressure Washer Name Role Phone Tiffany Morales MD Primary Care Provider [phone] Reason for Visit * Reason Onset Date Comments Request For Order(s) 08/23/2023 Encounter Details Date Type Department Care Team ([facility] st Contact Info) Description 08/23/2023 Telephone [facility] CHC MED & PEDS [address] [place], [place] [phone] Tiffany Morales MD [address] [place] [address] Request For Order(s) Social History Tobacco Use [...] - 08/23/2023 3:15 PM EST Tc from [facility] with [facility] requesting a new order for an MRI without contrast. documented in this encounter Plan of Treatment Upcoming Encounters Date Type Department Care Team (Late st Contact Info) Description 03/21/2025 2:00 PM EDT Office Visit [facility] MED & PEDS [address] [place] [address] Tiffany Morales MD [address] [place] [address] documented as of this encounter Visit Diagnoses Not on filedocumented in this encounter Care Teams Pressure Washer Relationship Specialty Start Date End Date Tiffany Morales MD [address] [place] [address] PCP - General Internal Medicine 07/02/14 documented as of this encounter
--- OUTSIDE RECORDS SUMMARY | 2025-03-05 14:35 | XMS_ITS | Encounter Summary ---
Author Organization [employer] Address [address] [place] [address] 7 [place] [address] Care Team Providers Care Rn Tele Name Role Phone Tiffany Morales MD Primary Care Provider [phone] Reason for Visit * Reason Comments Med Refill Encounter Details Date Type Department Care Team ([facility] st Contact Info) Description 12/26/2023 Refill [facility] CHC MED & PEDS [address] [place], [place] [phone] Tiffany Morales MD [address] [place] [address] Primary hypertension Social History Tobacco Use Types [...] 03/21/2025 2:00 PM EDT Office Visit [facility] MED [facility]EDS [address] [place] [address] Tiffany Morales MD [address] [place] [address] documented as of this encounter Visit Diagnoses Diagnosis Primary hypertension Unspecified essential hypertension documented in this encounter Care Teams Rn Tele Relationship Specialty Start Date End Date Tiffany Morales MD [address] [place] [address] PCP - General Internal Medicine 07/02/14 documented as of this encounter
--- OUTSIDE RECORDS SUMMARY | 2025-03-05 14:35 | XMS_ITS | Encounter Summary ---
Author Organization [employer] Address [address] [facility] 7t [place] [address] Care Team Providers Care Art Objects Repairer Name Role Phone Tiffany Morales MD Primary Care Provider [phone] Encounter Details Date Type Department Care Team (Late st Contact Info) Description 02/09/2024 Orders Only [facility] [address] [place] [address] Tiffany Morales MD [address] [place] [address] Social History Tobacco Use Types Packs/Day Years [...] Description 03/21/2025 2:00 PM EDT Office Visit [facility] CHC MED & PEDS [address] [place] [address] Tiffany Morales MD [address] [place] [address] documented as of this encounter Visit Diagnoses Not on filedocumented in this encounter Additional Health Concerns Assessment Noted Time PHQ-9 Depression Total Score: 0 02/02/20 24 1:47 PM EDT documented as of this encounter Care Teams Art Objects Repairer Relationship Specialty Start Date End Date Tiffany Morales MD [address] [place] [address] PCP - General Internal Medicine 07/02/14 documented as of this encounter
--- OUTSIDE RECORDS SUMMARY | 2025-03-05 14:35 | XMS_ITS | Encounter Summary ---
Author Organization [employer] Address [address] [place] [address] 7 [place] [address] Care Team Providers Care Gas Engine Mechanic Name Role Phone Tiffany Morales MD Primary Care Provider [phone] Encounter Details Date Type Department Care Team (Late st Contact Info) Description 10/03/2023 Orders Only [facility] CHC MED & PEDS [address] [place], [place] [phone] Tiffany Morales MD [address] [place] [address] Acute vaginitis (Primary Dx) Social History Tobacco Use Types Packs/Day Years Used Date Smoking Tobacco: Never Smokeless Tobacco: Never Housing Stability Answer Date Recorded What is your housing situation today? I do not have housing (Staying with others, in a hotel, in a long term, living outside on the street, on a [...] t he electric, gas, oil or water [employer] threatened to shut off services in your home? No 04/11/2023 Comments Unknown Sex and Gender Information Value Date Recorded Sex Assigned at Female 04/18/2022 10:20 AM EDT Legal Sex Female 10:20 AM EDT Gender Identity Female 04/18/2022 10:20 AM EDT Sexual Orientation Straight 04/18/2022 10 :20 AM EDT documented as of this encounter Plan of Treatment Upcoming Encounters Date Type Department Care Team ([facility] st Contact Info) Description 03/21/2025 2:00 PM EDT Office Visit [facility] MED & PEDS [address] [place], [place] [phone] Tiffany Morales MD [address] [place], [place] [phone] documented as of this encounter Procedures Procedure [...] 9:30 AM EDT) Color Urine Dark Yellow [facility] Appearance Urine Cloudy [facility] PH 5.5 5.0 - 9.0 [facility] Glucose Urine UA Negative Negative mg/dL [facility] Urine Blood Negative Negative [facility] Specific [place] - Urine >=1.030(H) 1.005 - 1.025 [facility] Urine Protein Trace Neg-Trace mg/dL [facility] Urine Ketones Negative Negative mg/dL [facility] Nitrite Urine Negative Negative [facility] Leukocyte Esterase Urine Negative Negative [facility] RBC Urine 0-2 0 - 2 /HPF [facility] Urine WBC 0-5 0 - 5 /HPF [facility] Urine Squamous Epithelial Cell 11-20 0 - 2 /HPF [facility] Urine Bacteria 3+ None Seen [facility] Hyaline Casts, Urine 0-2 0 - 2 /LPF [facility] Urine (Urine, Random) 10/03/2023 9:30 AM EDT 10/03/2023 2:16 PM EDT us Tiffany Morales MD LAB URINE ORDERABLES Final Result Performing Organization Address [facility] Co de Phone Number [facility] [address] [place] [phone] * (ABNORMAL) SureSwab?? Advanced Bacterial Vaginosis (BV), TMA (10/03/2023 9:10 AM EDT) SureSwab 9R) ADV Bacterial Vaginosis (BV), TMA POSITIVE( A) NEGATIVE [facility] Comment:THIS TEST WAS PERFOR MED AT:[employer] [address] [id number] PRITCHARD MD 10/03/2023 9:10 AM EDT 10/03/2023 2:16 PM EDT us Tiffany Morales MD LAB BODY FLUIDS AND STOOLS ORDERABLES Final Result Performing Organization Address [facility] Co de Phone Number [facility] [address] [place] [phone] * RPR (Monitor) with Reflex to??Titer (10/03/2023 8:58 AM EDT) RPR (Monitor) w/Refl Titer NON-REACTI VE NON-REACT NAEEM [facility] Comment:THIS TEST WAS PERFOR MED AT:[facility] [place] [id number] PRITCHARD MD Rapid Plasma Reagin Ab Titer TNP [facility] Blood Venous blood specimen / Unknown 10/03/2023 8:58 AM EDT 10/03/2023 2:22 PM EDT us Tiffany Morales MD LAB BLOOD ORDERABLES Final Result Performing Organization Address [facility]/ZIP Co de Phone Number [facility] [address] [place] [phone] * HIV-1/2 Antigen and Antibodies, Fourth Generation, with Reflexes (10/03/2023 8:58 AM EDT) HIV AB/AG Nonreactive Nonreactive [facility] Comment:HIV-1 p24 Ag and/or HIV-1/HIV-2 Ab not detected.A test result that is nonreactive does not exclude thepossibility of exposure to or infection with HIV-1 and/orHIV-2. Nonreactive results in this assay for individualswith prior exposure to HIV-1 and/or HIV-2 may be due toantigen and antibody levels that are below the limit ofdetection of this assay.The RankerniVyclone HIV Ag/Ab Combo assay result andsupplemental assay results should be interpreted inconjunction with the patient's clinical presentation,history and other laboratory results. If the results areinconsistent with clinical evidence, additional testing issuggested to confirm the result. Blood Venous blood specimen / Unknown 10/03/2023 8:58 AM EDT 10/03/2023 2:22 PM EDT us Tiffany Morales MD LAB BLOOD ORDERABLES Final Result Performing Organization Address City/[facility]/ZIP Co de Phone Number [facility] [address] [place] [address] [phone] documented in this encounter Visit Diagnoses Diagnosis Acute vaginitis- Primary Unspecified vaginitis and vulvovaginitis documented in this encounter Care Teams Gas Engine Mechanic Relationship Specialty Start Date End Date Tiffany Morales MD [address] [place] [address] PCP - General Internal Medicine 07/02/14 documented as of this encounter
--- OUTSIDE RECORDS SUMMARY | 2025-03-05 14:35 | XMS_ITS | Encounter Summary ---
Author Organization [employer] Address [address] [place] [address] 7 [place] [address] Care Team Providers Care Internal Grinder Name Role Phone Tiffany Morales MD Primary Care Provider [phone] Encounter Details Date Type Department Care Team (Late st Contact Info) Description 05/24/2023 Orders Only [facility] CHC MED & PEDS [address] [place], [place] [phone] Tiffany Morales MD [address] [place] [address] Acute pain of right knee (Primary Dx); [...] Description 03/21/2025 2:00 PM EDT Office Visit [facility] MED & PEDS [address] [place] [address] Tiffany Morales MD [address] [place] [address] Scheduled Orders Name Type Priority Associated Diagnoses Orde r Schedule XR Knee 1-2 Views Left Imaging Routine Chronic pain of left knee Expected: 06/05/2023, Expires: 06/05/2024 documented as of this encounter Visit Diagnoses Diagnosis Acute pain of right knee- Primary Chronic pain of left knee documented in this encounter Care Teams Internal Grinder Relationship Specialty Start Date End Date Tiffany Morales MD [address] [place] [address] PCP - General Internal Medicine 07/02/14 documented as of this encounter
--- OUTSIDE RECORDS SUMMARY | 2025-03-05 14:35 | XMS_ITS | Encounter Summary ---
Author Organization [employer] Address [address] [place] [address] 7 [place] [address] Care Team Providers Care Stack Matcher Name Role Phone Tiffany Morales MD Primary Care Provider [phone] Encounter Details Date Type Department Care Team (Late st Contact Info) Description 03/05/2025 Orders Only [facility] CHC MED & PEDS [address] [place], [place] [phone] Tiffany Morales MD [address] [place] [address] Other chest pain Social History Tobacco Use Types Packs/Day Years [...] AM EDT documented as of this encounter Progress Notes * Estefani May [place] - 03/05/2025 11:15 AM EDT error documented in this encounter Plan of Treatment Upcoming Encounters Date Type Department Care Team (Late st Contact Info) Description 03/21/2025 2:00 PM EDT Office Visit [facility] MED & PEDS [address] [place] [address] Tiffany Morales MD [address] [place] [address] documented as of this encounter Visit Diagnoses Diagnosis Other chest pain documented in this encounter Additional Health Concerns Assessment Noted Time PHQ-9 Depression Total Score: 0 02/02/20 24 1:47 PM EDT documented as of this encounter Care Teams Stack Matcher Relationship Specialty Start Date End Date Tiffany Morales MD [address] [place] [address] PCP - General Internal Medicine 07/02/14 documented as of this encounter
--- OUTSIDE RECORDS SUMMARY | 2025-03-05 14:35 | XMS_ITS | Encounter Summary ---
Author Organization [employer] Address [address] [place] [address] 7 [place] [address] Care Team Providers Care Electric Transfer Operator Name Role Phone Tiffany Morales MD Primary Care Provider [phone] Encounter Details Date Type Department Care Team (Late st Contact Info) Description 12/28/2023 Orders Only [facility] CHC MED & PEDS [address] [place], [place] [phone] Tiffany Morales MD [address] [place] [address] Acute pain of right knee (Primary Dx); Primary hypertension Social History Tobacco Use Types Packs/Day Years Used Date Smoking Tobacco: Never Smokeless Tobacco: Never Housing Stability Answer Date Recorded What is your housing situation today? I do not have housing (Staying with others, in a hotel, in a senior living, living outside on the street, on a [...] 03/21/2025 2:00 PM EDT Office Visit [facility] MED & PEDS [address] [place] [address] Tiffany Morales MD [address] [place] [address] documented as of this encounter Visit Diagnoses Diagnosis Acute pain of right knee- Primary Primary hypertension Unspecified essential hypertension documented in this encounter Care Teams Electric Transfer Operator Relationship Specialty Start Date End Date Tiffany Moraels MD [address] [place] [address] PCP - General Internal Medicine 07/02/14 documented as of this encounter
--- OUTSIDE RECORDS SUMMARY | 2025-03-05 14:35 | XMS_ITS | Encounter Summary ---
Author Organization [employer] Address [address] [place] [address] Care Team Providers Care Customer Consultant Name Role Phone Tiffany Morales MD Primary Care Provider [phone]- [phone] Reason for Visit * Reason Onset Date Comments Request For Order(s) 08/24/2023 Encounter Details Date Type Department Care Team ([facility] st Contact Info) Description 08/24/2023 Telephone [facility] MEDICINE [address] [place] [address] Tiffany Morales MD [address] [place] [phone] Request For Order(s) Social History Tobacco Use [...] Radiology rquesting correction on Ankle MR Order, Kinm stated order should said; MR Ankle W/O Contrast Right documented in this encounter Plan of Treatment Upcoming Encounters Date Type Department Care Team (Late st Contact Info) Description 03/21/2025 2:00 PM EDT Office Visit [facility] CHC MED & PEDS [address] [place] [address] Tiffany Morales MD [address] [place] [address] documented as of this encounter Visit Diagnoses Not on filedocumented in this encounter Care Teams Customer Consultant Relationship Specialty Start Date End Date Tiffany Morales MD [address] [place] [address] PCP - General Internal Medicine 07/02/14 documented as of this encounter
--- OUTSIDE RECORDS SUMMARY | 2025-03-05 14:35 | XMS_ITS | Encounter Summary ---
Author Organization [employer] Address [address] [place] [address] 7 [place] [address] Care Team Providers Care Deputy Sheriff Generalist/Bailiff Name Role Phone Tiffany Morales MD Primary Care Provider [phone] Encounter Details Date Type Department Care Team (Late st Contact Info) Description 04/14/2023 Orders Only [facility] CHC MED & PEDS [address] [place], [place] [phone] Tiffany Morales MD [address] [place] [address] Herpes (Primary Dx) Social History Tobacco Use Types Packs/Day Years Used Date Smoking Tobacco: Never Smokeless Tobacco: Never Housing Stability Answer Date Recorded What is your housing situation today? I do not have housing (Staying with others, in a hotel, in a fpc, living outside on the street, on a [...] t he electric, gas, oil or water [employer] threatened to shut off services in your [...] 2:00 PM EDT Office Visit [facility] MED & PEDS [address] [place] [address] Tiffany Morales MD [address] [place] [address] documented as of this encounter Visit Diagnoses Diagnosis Herpes- Primary Herpes simplex without mention of complication documented in this encounter Care Teams Deputy Sheriff Generalist/Bailiff Relationship Specialty Start Date End Date Tiffany Morales MD [address] [place] [address] PCP - General Internal Medicine 07/02/14 documented as of this encounter
[2025-03-06 04:54] LABS: HIV Num 1 0.03 S/CO (0.00-0.99); ~HepC Num1 0.05 S/CO (0.00-0.79); ~Hepatitis C Antibody Nonreactive (Nonreactive)
[2025-03-06 09:29] LABS: CT PCR NOT DETECTED (Not Detect.); NG PCR NOT DETECTED (Not Detect.)
== END 2025-03-05 11:20 | disposition home or self-care (01) ==
LOC: HO.CHCLDS 11:19
PROVIDERS: Visit Provider Internal Medicine
DX: Z11.4 Encounter for screening for human immunodeficiency virus [HIV] (principal); R07.89 Other chest pain
CPT/HCPCS: 36415; 81003; 86592; 86803; 87389; 87491; 87591

== ENCOUNTER 2025-03-25 08:12 | Outpatient (REF) | payer OTHER, SELFPAY ==
[2025-03-25 14:11] LABS: MANUAL DIFF FLAG NO
[2025-03-25 14:44] LABS: Alanine Aminotransferase 12 U/L (0-31); Albumin Level 3.9 g/dL (3.5-5.0); Alkaline Phosphatase 74 U/L (39-117); Anion Gap 11 (12-20); Aspartate Amino Transferase 21 U/L (5-31); Blood Urea Nitrogen 12 mg/dL (9-16); Calcium 8.6 mg/dL (8.4-10.2); Carbon Dioxide 27 mmol/L (22-29); Chloride 108 mmol/L (96-108); Cholesterol 165 mg/dL (<200); Estimated Glomerular Filt Rate > 60; HDL Cholesterol 40 mg/dL (>40); Potassium 3.7 mmol/L (3.3-5.1); Sodium 142 mmol/L (135-145); Total Protein 6.3 g/dL (6.5-8.0); Triglycerides 80 mg/dL (<150)
[2025-03-25 14:45] LABS: Hematocrit 41.5 % (37.0-47.0); Hemoglobin 14.0 g/dl (12.0-16.0); Imm Gran Abs Auto 0.01 X10*3/uL (0.00-0.03); Imm Gran Pct Auto 0.1 % (0.0-0.4); Lymphocytes Absolute Auto 1.4 X10*3/uL (1.2-4.9); Mean Corpuscular HGB Conc 33.7 g/dl (31.0-35.0); Mean Corpuscular Hemoglobin 30.2 pg (27.0-33.0); Mean Corpuscular Volume 89.6 fL (80.0-98.0); NRBC Abs Auto 0.000 X10*3/uL (0.0-0.012); NRBC Pct Auto 0.0 /100WBC (0.0-0.2); Platelet Count 267 X10*3/uL (160-400); Red Blood Count 4.63 X10*6/uL (4.20-5.50); White Blood Count 8.1 X10*3/uL (4.8-10.8)
[2025-03-26 08:11] LABS: HBS Num1 102.12 mIU/mL (0-7.99); ~Hepatitis B Surface Antibody REACTIVE (Nonreactive)
== END 2025-03-25 08:13 | disposition home or self-care (01) ==
LOC: HO.CHCLDS 08:12
PROVIDERS: Visit Provider Internal Medicine
DX: Z00.00 Encounter for general adult medical examination without abnormal findings (principal); I10 Essential (primary) hypertension; M54.50 Low back pain, unspecified; E66.811 Obesity, class 1; Z68.30 Body mass index [BMI] 30.0-30.9, adult
CPT/HCPCS: 36415; 80053; 80061; 82306; 84443; 85025; 86706

== ENCOUNTER 2025-04-30 14:18 | Outpatient (REF) | payer OTHER, SELFPAY ==
--- OUTSIDE RECORDS SUMMARY | 2025-04-30 17:42 | XMS_ITS | Encounter Summary ---
Author Organization [employer] Address [address] [place] [address] 7 [place] [address] Care Team Providers Care Vehicle Operator Name Role Phone Tiffany Morales MD Primary Care Provider [phone] Encounter Details Date Type Department Care Team (Late st Contact Info) Description 04/22/2025 Orders Only [facility] CHC MED & PEDS [address] [place], [place] [phone] Tiffany Morales MD 505 [place], [place] [phone] Primary hypertension (Primary Dx) Social History Tobacco Use Types Packs/Day Years Used Date Smoking Tobacco: Never Smokeless Tobacco: Never Alcohol Use Standard Drinks/Week Comments Defer 0 (1 standard drink = 0.6 oz pur e alcohol) Alcohol Answer Date Recorded How often do you have a drink containing alcohol ? 2 03/21/2025 How many drinks containing a lcohol do you have on a typical day when you are drinking? 1 03/21/2025 How often do you have six or more drinks on one occasion? 0 03/21/2025 Depression Answer Date Recorded Patient Health Questionnaire-9 Score 1 03/21/2025 Patient Health Questionnaire-9 Score 1 03/21/2025 Last PHQ-9: Questionnaire Data Not on file 1 Housing Stability Answer Date Recorded What is your housing situation today? I have lyn dobbs 03/21/[address] you li ve. Do you have problems with any of the following? None of the above 03/21/2025 Food Insecurity Answer Date Recorded Within the past 12 months, y ou worried that your food would run out before you got money to buy more: Never True 03/21/2025 Within the past 12 months,th e food you bought just didn't last and you didn't have enough money to get more: Never True 08/2024 Transportation Answer Date Recorded In the past 12 months, has l ack of transportation kept you from medical appts, meetings, work or from getting things needed for daily living? No 03/21/2025 Utilities Answer Date Recorded In the past 12 months, has t he electric, gas, oil or water company threatened to shut off services in your home? No 03/21/2025 Depression Answer Date Recorded Patient Health Questionnaire-2 Score 0 03/21/2025 Internet Access Answer Date Recorded Internet Access Q1 Yes 03/21/2025 Internet Access Q2 Not on file 03/21/2025 Comments Unknown Sex and Gender Information Value Date Recorded Sex Assigned at Female 04/18/2022 10:20 AM EDT Legal Sex Female 10:20 AM EDT Gender Identity Female 04/18/2022 10:20 AM EDT Sexual Orientation Straight 04/18/2022 10 :20 AM EDT documented as of this encounter Plan of Treatment Not on file documented as of this encounter Visit Diagnoses Diagnosis Primary hypertension- Primary Unspecified essential hypertension documented in this encounter Additional Health Concerns Assessment Noted Time PHQ-9 Depression Total Score: 1 03/21/20 25 1:32 PM EDT documented as of this encounter Care Teams Vehicle Operator Relationship Specialty Start Date End Date Tiffany Morales MD [address] [place] [address] PCP - General Internal Medicine 07/02/14 documented as of this encounter
--- OUTSIDE RECORDS SUMMARY | 2025-04-30 17:42 | XMS_ITS | Encounter Summary ---
Author Organization [employer] Address [address] [place] [address] 7 [place] [address] Care Team Providers Care Farm Mortgage Agent Name Role Phone Tiffany Morales MD Primary Care Provider [phone] Encounter Details Date Type Department Care Team (Late st Contact Info) Description 12/28/2023 Orders Only [facility] CHC MED & PEDS [address] [place], [place] [phone] Tiffany Morales MD 505 [place] [address] Acute pain of right knee (Primary Dx); Primary hypertension Social History Tobacco Use Types Packs/Day Years Used Date Smoking Tobacco: Never Smokeless Tobacco: Never Housing Stability Answer Date Recorded What is your housing situation today? I do not have housing (Staying with others, in a hotel, in a longterm, living outside on the street, on a [...] hypertension documented in this encounter Care Teams Farm Mortgage Agent Relationship Specialty Start Date End Date Tiffany Morales MD [address] [place] [id number] PCP - General Internal Medicine 07/02/14 documented as of this encounter
--- OUTSIDE RECORDS SUMMARY | 2025-04-30 17:42 | XMS_ITS | Encounter Summary ---
Author Organization [employer] Address [address] [place] [address] Care Team Providers Care Component Assembler Supervisor Name Role Phone Tiffany Morales MD Primary Care Provider [phone]- [phone] Reason for Visit * Reason Onset Date Comments Request For Order(s) 08/24/2023 Encounter Details Date Type Department Care Team ([facility] st Contact Info) Description 08/24/2023 Telephone [facility] MEDICINE [address] [place] [address] Tiffany Morales MD [address] [place] [phone] Request For Order(s) Social History Tobacco Use Types Packs/Day Years Used Date Smoking Tobacco: Never Smokeless Tobacco: Never Housing Stability Answer Date Recorded What is your housing situation today? I do not have housing (Staying with others, in a hotel, in a half-way, living outside on the street, on a [...] on filedocumented in this encounter Care Teams Component Assembler Supervisor Relationship Specialty Start Date End Date Tiffany Morales MD [address] [place] [phone] PCP - General Internal Medicine 07/02/14 documented as of this encounter
--- OUTSIDE RECORDS SUMMARY | 2025-04-30 17:42 | XMS_ITS | Encounter Summary ---
Author Organization [email or web address] Address [address] [place] [address] 7 [place] [address] Care Team Providers Care Life Science Teacher Name Role Phone Tiffany Morales MD Primary Care Provider [phone] Encounter Details Date Type Department Care Team (Late st Contact Info) Description 07/29/2024 Orders Only [facility] CHC MED & PEDS 505 [place], [place] [phone] Carlos Boyer MD 505 [place] [address] Social History Tobacco Use Types Packs/Day Years [...] documented as of this encounter Care Teams Life Science Teacher Relationship Specialty Start Date End Date Tiffany Morales MD [address] [place] [address] PCP - General Internal Medicine 07/02/14 documented as of this encounter
--- OUTSIDE RECORDS SUMMARY | 2025-04-30 17:42 | XMS_ITS | Encounter Summary ---
Author Organization [employer] Address [address] [place] [address] 7 [place] [address] Care Team Providers Care Ham Rolling Machine Operator Name Role Phone Tiffany Morales MD Primary Care Provider [phone] Encounter Details Date Type Department Care Team ([facility] st Contact Info) Description 01/20/2024 Telephone [facility] CHC MED & PEDS 505 [place], [place] [phone] Raiza Liao MD 505 [place], [place] [phone] Social History Tobacco Use Types Packs/Day Years [...] the past 12 months, has t he [employer], gas, oil or water company threatened to [...] on filedocumented in this encounter Care Teams Ham Rolling Machine Operator Relationship Specialty Start Date End Date Tiffany Morales MD [address] [place] [phone] PCP - General Internal Medicine 07/02/14 documented as of this encounter
--- OUTSIDE RECORDS SUMMARY | 2025-04-30 17:42 | XMS_ITS | Encounter Summary ---
Author Organization [email or web address] Address [address] [place] [address] 7 [place] [address] Care Team Providers Care Tile Erector Name Role Phone Tiffany Morales MD Primary Care Provider [phone] Encounter Details Date Type Department Care Team (Late st Contact Info) Description 09/12/2023 Orders Only [facility] CHC MED & PEDS 505 [place], [place] [phone] Tiffany Morales MD 505 [place] [address] Seasonal allergies (Primary Dx) Social History Tobacco Use Types Packs/Day Years Used Date Smoking Tobacco: Never Smokeless Tobacco: Never Housing Stability Answer Date Recorded What is your housing situation today? I do not have housing (Staying with others, in a hotel, in a long-term, living outside on the street, on a [...] unspecified documented in this encounter Care Teams Tile Erector Relationship Specialty Start Date End Date Tiffany Morales MD [address] [place] [phone] PCP - General Internal Medicine 07/02/14 documented as of this encounter
--- OUTSIDE RECORDS SUMMARY | 2025-04-30 17:42 | XMS_ITS | Encounter Summary ---
Author Organization [employer] Address [address] [place] [address] [place] [address] Care Team Providers Care Clinical Unit Educator Name Role Phone Tiffany Morales MD Primary Care Provider [phone] Reason for Visit * Reason Onset Date Comments Request For Order(s) 08/23/2023 Encounter Details Date Type Department Care Team ([facility] st Contact Info) Description 08/23/2023 Telephone [facility] CHC MED & PEDS [address] [place], [place] [phone] Tiffany Morales MD 505 [place] [address] Request For Order(s) Social History Tobacco Use Types Packs/Day Years Used Date Smoking Tobacco: Never Smokeless Tobacco: Never Housing Stability Answer Date Recorded What is your housing situation today? I do not have housing (Staying with others, in a hotel, in a prison, living outside on the street, on a [...] - 08/23/2023 3:15 PM EST Tc from [facility] with [facility] requesting a new order for an MRI without contrast. documented in this encounter Plan of Treatment Not on file documented as of this encounter Visit Diagnoses Not on filedocumented in this encounter Care Teams Clinical Unit Educator Relationship Specialty Start Date End Date Tiffany Morales MD [address] [place] [id number] PCP - General Internal Medicine 07/02/14 documented as of this encounter
--- OUTSIDE RECORDS SUMMARY | 2025-04-30 17:42 | XMS_ITS | Encounter Summary ---
Author Organization [employer] Address [address] [place] [address] 7 [place] [address] Care Team Providers Care Principal Developer Name Role Phone Tiffany Morales MD Primary Care Provider [phone] Encounter Details Date Type Department Care Team (Late st Contact Info) Description 10/03/2023 Orders Only [facility] CHC MED & PEDS 505 [place], [place] [phone] Tiffany Morales MD 505 [place] [address] Acute vaginitis (Primary Dx) Social History Tobacco Use Types Packs/Day Years Used Date Smoking Tobacco: Never Smokeless Tobacco: Never Housing Stability Answer Date Recorded What is your housing situation today? I do not have housing (Staying with others, in a hotel, in a detention, living outside on the street, on a [...] t he electric, gas, oil or water [employer] threatened to shut off services in your [...] 9:30 AM EDT) Color Urine Dark Yellow [facility] Appearance Urine Cloudy [facility] PH 5.5 5.0 - 9.0 [facility] Glucose Urine UA Negative Negative mg/dL [facility] Urine Blood Negative Negative [facility] Specific [place] - Urine >=1.030(H) 1.005 - 1.025 [facility] Urine Protein Trace Neg-Trace mg/dL [facility] Urine Ketones Negative Negative mg/dL [facility] Nitrite Urine Negative Negative [facility] Leukocyte Esterase Urine Negative Negative [facility] RBC Urine 0-2 0 - 2 /HPF [facility] Urine WBC 0-5 0 - 5 /HPF [facility] Urine Squamous Epithelial Cell 11-20 0 - 2 /HPF [facility] Urine Bacteria 3+ None Seen [facility] Hyaline Casts, Urine 0-2 0 - 2 /LPF [facility] Urine (Urine, Random) 10/03/2023 9:30 AM EDT 10/03/2023 2:16 PM EDT us Tiffany Morales MD LAB URINE ORDERABLES Final Result Performing Organization Address [facility] [employer] de Phone Number [facility] [address] [place] [address] [phone] * (ABNORMAL) SureSwab?? Advanced Bacterial Vaginosis (BV), TMA (10/03/2023 9:10 AM EDT) SureSwab 9R) ADV Bacterial Vaginosis (BV), TMA POSITIVE( A) NEGATIVE [facility] Comment:THIS TEST WAS PERFOR MED AT:[facility] [place] [id number] PRITCHARD MD 10/03/2023 9:10 AM EDT 10/03/2023 2:16 PM EDT us Tiffany Morales MD LAB BODY FLUIDS AND STOOLS ORDERABLES Final Result Performing Organization Address [facility] de Phone Number [facility] [address] [place] [phone] * RPR (Monitor) with Reflex to??Titer (10/03/2023 8:58 AM EDT) RPR (Monitor) w/Refl Titer NON-REACTI VE NON-REACT NAEEM [facility] Comment:THIS TEST WAS PERFOR MED AT:[facility] [place] [phone] PRITCHARD MD Rapid Plasma Reagin Ab Titer TNP [facility] Blood Venous blood specimen / Unknown 10/03/2023 8:58 AM EDT 10/03/2023 2:22 PM EDT us Tiffany Morales MD LAB BLOOD ORDERABLES Final Result Performing Organization Address [facility] [employer] de Phone Number [facility] [address] [place] [address] [phone] * HIV-1/2 Antigen and Antibodies, Fourth Generation, with Reflexes (10/03/2023 8:58 AM EDT) HIV AB/AG Nonreactive Nonreactive [facility] Comment:HIV-1 p24 Ag and/or HIV-1/HIV-2 Ab not detected.A test result that is nonreactive does not exclude thepossibility of exposure to or infection with HIV-1 and/orHIV-2. Nonreactive results in this assay for individualswith prior exposure to HIV-1 and/or HIV-2 may be due toantigen and antibody levels that are below the limit ofdetection of this assay.The [employer] HIV Ag/Ab Combo assay result andsupplemental assay results should be interpreted inconjunction with the patient's clinical presentation,history and other laboratory results. If the results areinconsistent with clinical evidence, additional testing issuggested to confirm the result. Blood Venous blood specimen / Unknown 10/03/2023 8:58 AM EDT 10/03/2023 2:22 PM EDT us Tiffany Morales MD LAB BLOOD ORDERABLES Final Result Performing Organization Address [facility] [employer] de Phone Number [facility] [address] [place] [address] [phone] documented in this encounter Visit Diagnoses Diagnosis Acute vaginitis- Primary Unspecified vaginitis and vulvovaginitis documented in this encounter Care Teams Principal Developer Relationship Specialty Start Date End Date Tiffany Morales MD [address] [place] [id number] PCP - General Internal Medicine 07/02/14 documented as of this encounter
--- OUTSIDE RECORDS SUMMARY | 2025-04-30 17:42 | XMS_ITS | Encounter Summary ---
Author Organization [email or web address] Address [address] [place] [address] 7 [place] [address] Care Team Providers Care Credentials Specialist Name Role Phone Tiffany Morales MD Primary Care Provider [phone] Encounter Details Date Type Department Care Team (Late st Contact Info) Description 12/08/[address] [facility] CHC MED & PEDS [address] [place], [place] [phone] Tiffany Morales MD [address] [place] [address] Social History Tobacco Use Types Packs/Day Years [...] the past 12 months, has t he [employer], [employer], oil or water company threatened to shut [...] on filedocumented in this encounter Care Teams Credentials Specialist Relationship Specialty Start Date End Date Tiffany Morales MD [address] [place] [phone] PCP - General Internal Medicine 07/02/14 documented as of this encounter
--- OUTSIDE RECORDS SUMMARY | 2025-04-30 17:42 | XMS_ITS | Encounter Summary ---
Author Organization [employer] Address [address] [place] [address] 7 [place] [address] Care Team Providers Care Structural Analyst Name Role Phone Tiffany Morales MD Primary Care Provider [phone] Encounter Details Date Type Department Care Team (Late st Contact Info) Description 07/03/2024 Orders Only [facility] CHC MED & PEDS [address] [place], [place] [phone] Tiffany Morales MD [address] [place], [place] [phone] Vaginal discharge (Primary Dx) Social History Tobacco [...] documented as of this encounter Care Teams Structural Analyst Relationship Specialty Start Date End Date Tiffany Morales MD [address] [place] [address] PCP - General Internal Medicine 07/02/14 documented as of this encounter
--- OUTSIDE RECORDS SUMMARY | 2025-04-30 17:42 | XMS_ITS | Encounter Summary ---
Author Organization [employer] Address [address] [place] [address] 7 [place] [address] Care Team Providers Care Traveling Storekeeper Name Role Phone Tiffany Morales MD Primary Care Provider [phone] Encounter Details Date Type Department Care Team (Late st Contact Info) Description 03/26/2025 Orders Only [facility] CHC MED & PEDS [address] [place], [place] [phone] Tiffany Morales MD 505 [place] [address] Vitamin D deficiency (Primary Dx); Primary hypertension Social History Tobacco [...] as of this encounter Visit Diagnoses Diagnosis Vitamin D deficiency- Primary Primary hypertension Unspecified essential hypertension documented in this encounter Additional Health Concerns Assessment Noted Time PHQ-9 Depression Total Score: 1 03/21/20 25 1:32 PM EDT documented as of this encounter Care Teams Traveling Storekeeper Relationship Specialty Start Date End Date Tiffany Morales MD [address] [place] [address] PCP - General Internal Medicine 07/02/14 documented as of this encounter
--- OUTSIDE RECORDS SUMMARY | 2025-04-30 17:42 | XMS_ITS | Encounter Summary ---
Author Organization [employer] Address [address] [place] [address] 7 [place] [address] Care Team Providers Care Magistrate Name Role Phone Tiffany Morales MD Primary Care Provider [phone] Reason for Visit * Reason Comments Med Refill Encounter Details Date Type Department Care Team ([facility] st Contact Info) Description 12/26/2023 Refill [facility] CHC MED & PEDS [address] [place], [place] [phone] Tiffany Morales MD [address] [place] [address] Primary hypertension Social History Tobacco Use Types Packs/Day Years Used Date Smoking Tobacco: Never Smokeless Tobacco: Never Housing Stability Answer Date Recorded What is your housing situation today? I do not have housing (Staying with others, in a hotel, in a custodial, living outside on the street, on a [...] hypertension documented in this encounter Care Teams Magistrate Relationship Specialty Start Date End Date Tiffany Morales MD [address] [place] [phone] PCP - General Internal Medicine 07/02/14 documented as of this encounter
--- OUTSIDE RECORDS SUMMARY | 2025-04-30 17:43 | XMS_ITS | Clinical Summary ---
Author Organization [employer] Address [address] [place] [address] [address] [place] [address] Care Team Providers Care Airport Operations Supervisor Name Role Phone Tiffany Morales MD Primary Care Provider Allergies Active Allergy Reactions Criticality Noted Date Comments Gramineae Pollens 05/24/2022 Seasonal allergy Medications Misc. Devices (Pulse Oximeter) misc To use every 4-6 hours 2 Active hydrOXYzine HCl (Atarax) 25 MG tablet Take 1 tablet by mouth every 12 (twelve) hours if needed. 1 Active Blood Pressure kit Take by on arm route as directed Active acetaminophen (Tylenol) 500 MG tabletIndication s:Acute pain of right knee Take 1-2 tablets (500-1,000 mg) by mouth every 8 (eight) hours if needed (pain or fever). 100 tablet 2 5 Active naproxen (Naprosyn) 500 MG tabletIndication s:Acute pain of right knee Take 1 tablet (500 mg) by mouth if needed in the morning and at bedtime (pain or fever). 60 tablet 2 5 11/26/19 26 Active cetirizine (ZyrTEC) 10 MG tabletIndication s:Seasonal allergies Take 1 tablet (10 mg) by mouth 2 times daily. 180 tablet 3 5 Active cyclobenzaprine (Flexeril) 10 MG tabletIndication s:Acute midline low back pain without sciatica Take 1 tablet (10 mg) by mouth 3 times daily for 10 days. 30 tablet 5 Active cyanocobalamin (Vitamin B-12) 1000 MCG tabletIndication s:Annual physical exam Take 1 tablet (1,000 mcg) by mouth Once per day. 30 tablet 11 5 03/21/20 26 Active cholecalciferol (Vitamin D-3) 50 MCG (2000 UT) capsuleIndicatio ns:Vitamin D deficiency Take 1 capsule (50 mcg) by mouth Once per day. 30 capsule 3 5 Active dilTIAZem CD (Cardizem CD) 120 MG 24 hr capsuleIndicatio ns:Primary hypertension Take 1 capsule (120 mg) by mouth Once per day. 30 capsule 11 04/30/2025 3:10 PM EST 5 04/02/20 26 Active hydroCHLOROthiaz tawana 12.5 MG tabletIndication s:Primary hypertension Take 1 tablet (12.5 mg) by mouth Once per day. 30 tablet 11 5 04/22/20 26 Active metroNIDAZOLE (Flagyl) 500 MG tabletIndication s:Primary hypertension Take 1 tablet (500 mg) by mouth 2 times daily for 7 days. 14 tablet 04/30/2025 3:10 PM EST 5 05/07/20 25 Active dilTIAZem (Cardizem) 30 MG immediate release tabletIndication s:Primary hypertension Take 1 tablet (30 mg) by mouth 2 times daily. 60 tablet 11 5 04/02/20 25 Discontinu ed(Therapy completed) Active Problems Problem Noted Date Diagnosed Date Acute midline low back pain without sciatica 01/2025 Assessment & Plan (12/24/2024 2:06 PM EDT): Acute low back pain, started about 1 week ago, worsened 3 days ago after outstretching, no neurologic deficit, pain is localized, will prescribe tramadol/prednisone and muscle relaxant Concussion with no loss of consciousness Assessment & Plan (03/22/2024 4:16 PM EDT): [...] Encounters Date Type Department Care Team Description 04/22/2025 Orders Only [facility] [address] [place] [address] Tiffany Morales MD Primary hypertension (Primary Dx) 03/26/2025 Orders Only [facility] [address] [place] [address] Tiffany Morales MD Vitamin D deficiency (Primary Dx); Primary hypertension 03/21/2025 2:00 PM EDT Office Visit [facility] [address] [place] [address] Tiffany Morales MD Primary hypertension (Primary Dx); Annual physical exam; Acute midline low back pain without sciatica; Seasonal allergies; Screening for colon cancer; Dietary counseling; Exercise counseling; Class 1 obesity due to excess calories with serious comorbidity and body mass index (BMI) of 30.0 to 30.9 in adult; Encounter for immunization 03/21/2025 Travel 03/17/2025 Telephone [facility] [address] [place] [address] Tiffany Morales MD Chart Prep 03/14/2025 Patient Outreach [facility] [address] [place] [address] Tiffany Morales MD Pre-visit Planning ([facility] unable to reach [facility]) 03/06/2025 9:00 AM EDT Office Visit [facility] [address] [place] [address] Delia Warren CNP Strep pharyngitis (Primary Dx); Cough, unspecified type; Sore throat 03/06/2025 Telephone [facility] [address] [place] [address] Tiffany Morales MD C Lab call 03/06/2025 Travel 03/05/2025 Orders Only [facility] [address] [place] [phone] Tiffany Morales MD Other chest pain 03/05/2025 Orders Only [facility] [address] [place] [phone] Tiffany Morales MD Other chest pain 02/27/2025 4:00 PM EDT Office Visit [facility] [address] [place] [phone] Tiffany Morales MD Other chest pain (Primary Dx); Primary hypertension 02/27/2025 Travel 02/26/2025 Telephone [facility] [address] [place] [address] [phone] Tiffany Morales MD ECHOCARDIOGRAM ORDER 02/26/2025 Orders Only [facility] [address] [place] [phone] Tiffany Morales MD Other chest pain (Primary Dx); Sore throat 02/08/2025 Refill [facility] [address] [place] [address] [phone] Carlos Boyer MD Seasonal allergies 02/06/2025 Telephone [facility] [address] [place] [address] Tiffany Morales MD 01/30/2025 Patient Outreach [facility] [address] [place] [address] [phone] Tiffany Morales MD Pre-visit Planning (Pre visit planning LVM ) from Last 3 Months Immunizations Immunization Administration Dates Next Due Influenza Injectable Quadriv alant Preservative Free IIV4 MDCK 04/14/2023,03/10/2022,03/11/2021,2019 Influenza injectable quadriv alent IIV4 with preservative 02/27/2019,02/28/2018,02/25/2015,1979 Influenza injectable quadriv alent preservative free 03/02/2016,05/04/2006 Influenza, IIV3, injectable 03/11/2021,0 03/18/2020,02/27/2019,2017,03/02/2016,02/25/2015,05/04/2006,0 1980 Influenza, seasonal, injecta ble, preservative free 03/21/2025 Moderna Covid-19 Vaccine 12+ 05/08/2021,07/17/19 21,06/17/2020 Tdap [...] Sign Reading Time Taken Comments Blood Pressure 144/93 03/21/2025 1:16 PM EDT Pulse 72 03/21/2025 1:16 PM EDT Temperature 37.5 C (99.5 F) 03/06/2025 9:04 AM EDT Respiratory Rate 20 03/21/2025 1:16 PM EDT Oxygen Saturation 99% 03/21/2025 1:16 PM EDT Inhaled Oxygen Concentration - - Weight 79.8 kg (176 lb) 03/21/2025 1:16 PM EDT Height 161.3 cm (5' 3.5 ) 03/21/2025 1:16 PM EDT Body Mass Index 30.69 03/21/2025 1:16 PM EDT Plan of Treatment Health Maintenance Due Date Last Done Comments CT Colonography 1980 Colonoscopy 1980 Colorectal Cancer Screening 1980 FIT DNA/Cologuard 1980 FIT 1980 FOBT 1980 Sigmoidoscopy 1980 Family Planning (PISQ) 01/08/1995 HPV Vaccines (1 - 3-dose series) 01/08/1995 Hepatitis B Vaccines (1 of 3 - 19+ 3-dose series) 01/08/1999 COVID-19 Vaccine ( season) 2025 05/08/2021, 07/17/2020, 06/17/2020 Dental X-Ray: Bitewings 03/27/2025 03/26/20 24, 11/20/2018, 11/13/2015, Additional history exists Dental Oral Exam 04/13/2025 10/11/2024, 01/2024, 12/10/2018, Additional history exists Dental Prophylaxis 04/13/2025 10/11/2024, 1 , 05/27/2019, Additional history exists Alcohol/Substance Use Screening 03/21/2026 03/21/2025 Depression Screening 03/21/2026 03/21/2025, 03/21/20 Disability Screening 03/21/2026 03/21/2025 SDOH Screening 03/21/2026 03/21/2025 Tobacco Screening 03/21/2026 03/21/2025 Mammogram 04/10/2026 04/10/2024, 03/19, 03/16/2022, Additional history exists Dental X-Ray: Full Mouth 03/27/2027 024, 11/20/2018, 08/12/2014, Additional history exists Cervical Cancer Screening 06/11/2027 HPV/Cotest 06/11/2027 06/11/2022, 03/30/2021 Pap Smear 06/11/2027 06/11/2022, 03/19, 03/30/2021 Zoster Vaccines (1 of 2) 01/08/2030 Lipid Panel 03/25/2030 03/25/2025, 02/08/2024 DTaP/Tdap/Td Vaccines (3 - Td or Tdap) 09/30/2031 09/29/2021, 10/10/2011 RSV Patients and Patients Aged 60 years or older (1 - 1-dose 75+ series) 01/08/2055 HIV Screening Completed 03/05/2025, 01/18, 10/03/2023 Hepatitis C Screening Completed 03/05/2025, 024 Influenza Vaccine Completed 03/21/2025, , 03/10/2022, Additional history exists HIB Vaccines Aged Out No longer eligi [...] Procedure Name Priority Date/Time Associated Diagnosis Comments HEPATITIS B SURFACE ANTIBODY, QUALITATIVE Routine 03/25/2025 8:14 AM EDT Acute midline low back pain without sciatica Primary hypertension Annual physical exam Class 1 obesity due to excess calories with serious comorbidity and body mass index (BMI) of 30.0 to 30.9 in adult VITAMIN D,25-OH,TOTAL,IA Routine 03/25/2025 8:14 AM EDT Annual physical exam TSH W/REFLEX TO FT4 Routine 03/25/2025 8 :14 AM EDT Annual physical exam LIPID PANEL, STANDARD Routine 03/25/2025 8:14 AM EDT Annual physical exam COMPREHENSIVE METABOLIC PANEL Routine 03/25/2025 8:14 AM EDT Annual physical exam CBC WITH AUTO DIFFERENTIAL Routine 03/25/2025 8:14 AM EDT Annual physical exam POCT RAPID STREP A Routine 03/06/2025 9: 19 AM EDT Sore throat POCT RAPID COVID ANTIGEN Routine 03/06/2025 9:19 AM EDT Cough, unspecified type POCT INFLUENZA A Routine 03/06/2025 9:18 AM EDT Cough, unspecified type POCT INFLUENZA B Routine 03/06/2025 9:18 AM EDT Cough, unspecified type CHLAMYDIA/N. GONORRHOEAE RNA, TMA, UROGENITAL Routine 03/05/2025 3:00 PM EDT Other chest pain URINALYSIS WITH REFLEX MICROSCOPIC Routine 03/05/2025 11:35 AM EDT Other chest pain RPR (MONITOR) W/REFL TITER Routine 03/05/2025 11:21 AM EDT Other chest pain HEPATITIS C AB W/REFL TO HCV RNA, QN, PCR Routine 03/05/2025 11:21 AM EDT Other chest pain HIV 1/2 ANTIGEN/ANTIBODY, FOURTH GENERATION W/RFL Routine 03/05/2025 11:21 AM EDT Other chest pain ECG 12-LEAD Routine 02/27/2025 5:19 PM EDT Other chest pain PROPHYLAXIS - ADULT Routine 10/11/2024 8 :00 AM EDT Defective dental episcopalian PERIODIC ORAL EVALUATION - ESTABLISHED PATIENT Routine 10/11/2024 8:00 AM EDT Defective dental episcopalian BI MAMMOGRAM SCREENING TOMOSYNTHESIS BILATERAL Routine 04/10/2024 2:40 PM EDT INTRAORAL - COMPLETE SERIES OF RADIOGRAPHIC IMAGES Routine 03/26/2024 8:00 AM EDT THINPREP IMAGING PAP AND HPV MRNA E6/E7, WITH CT/NG, TRICHOMONAS Routine 06/11/2022 6:22 AM EST from Last 3 Months or Most Recently Relevant to Health Maintenance Results * (ABNORMAL) Vitamin D, 25-Hydroxy, Total, Immunoassay (03/25/2025 8:14 AM EDT) Vitamin D 25-OH Total 28.4(L) >30 ng/mL [facility] Comment: Health Based Reference Values*< 20 ng/mL Tzkhkzkls14-90 ng/mL Insufficient> 30 ng/mL Sufficient*Kaya RODRIGUEZ. N Engl J Med. 2007;357:266-280There is no well-established upper level of normal vitamin Dlevels. Some laboratories use 50 ng/mL as an upper limit ofnormal. However, toxicity is patient-dependent and may occurat any level. Careful correlation with the patient'spresentation is necessary and, if there is concern forvitamin D toxicity, treatment should be consideredirrespective of the serum level.Care must be taken in interpreting Vitamin D results fromdifferent laboratories and methodologies. Published datademonstrated that results from patients undergoinghemodialysis may show a negative bias when tested withvarious automated 25-OH vitamin D assays when compared toLC-MS/MS.When testing samples from patients whose predominant form ofVitamin D is Vitamin D2, such as patients receiving VitaminD2 supplementation, results that are subtherapeutic shouldbe confirmed with another method such as LC-MS/MS. Blood Venous blood specimen / Unknown 03/25/2025 8:14 AM EDT 03/25/2025 2:11 PM EDT us Tiffany Morales MD LAB BLOOD ORDERABLES Final Result Performing Organization Address City/[facility]/ZIP Co de Phone Number [facility] [address] [place] [address] [phone] * TSH with Reflex to Free T4 (03/25/2025 8:14 AM EDT) TSH reflex Free T4 1.27 0.32 - 4.0 uIU/mL [facility] Blood Venous blood specimen / Unknown 03/25/2025 8:14 AM EDT 03/25/2025 2:11 PM EDT us Tiffany Morales MD LAB BLOOD ORDERABLES Final Result Performing Organization Address [facility]/ZIP Co de Phone Number [facility] [address] [place] [phone] * (ABNORMAL) CBC auto differential (03/25/2025 8:14 AM EDT) White Blood Count 8.1 4.8 - 10.8 X10*3/uL [facility] Red Blood Count 4.63 4.20 - 5.50 X10*6/uL [facility] Hemoglobin 14.0 12.0 - 16.0 g/dl [facility] Hematocrit 41.5 37.0 - 47.0 % [facility] Mean Corpuscular Volume 89.6 80.0 - 98.0 fL [facility] Mean Corpuscular Hemoglobin 30.2 27.0 - 33.0 pg [facility] Mean Corpuscular HGB Conc 33.7 31.0 - 35.0 g/dl [facility] Red Cell Distribution Width 12.7 11.0 - 16.0 % [facility] Platelet Count 267 160 - 400 X10*3/uL [facility] Mean Platelet Volume 11.7 9.4 - 12.3 fL [facility] Neutrophils Percent Auto 75.1(H) 45 - 73 % [facility] Imm Gran Pct Auto 0.1 0.0 - 0.4 % [facility] Lymphocytes Percent Auto 17.8(L) 20 - 40 % [facility] Monocytes Percent Auto 5.6 2 - 11 % [facility] Eosinophils Percent Auto 1.0 0 - 4 % [facility] Basophils Percent Auto 0.4 0 - 2 % [facility] NRBC Pct Auto 0.0 0.0 - 0.2 /100WBC [facility] Neutrophils Absolute Auto 6.1 2.0 - 8.3 x10*3/uL [facility] Imm Gran Abs Auto 0.01 0.00 - 0.03 X10*3/uL [facility] Lymphocytes Absolute Auto 1.4 1.2 - 4.9 X10*3/uL [facility] Monocytes Absolute Auto 0.5 0.1 - 1.2 X10*3/uL [facility] Eosinophils Absolute Auto 0.1 0.0 - 0.4 X10*3/uL [facility] Basophils Absolute Auto 0.0 0.0 - 0.2 X10*3/uL [facility] NRBC Abs Auto 0.000 0.0 - 0.012 X10*3/uL [facility] Blood Venous blood specimen / Unknown 03/25/2025 8:14 AM EDT 03/25/2025 2:09 PM EDT Tiffany Morales MD LAB BLOOD ORDERABLES Final Result Performing Organization Address [facility] Co de Phone Number [facility] [address] [place] [phone] * Hepatitis B Surface Antibody, Qualitative (03/25/2025 8:14 AM EDT) ~Hepatitis B Surface Antibody REACTIVE Nonreactive [facility] Comment:REACTIVE: > 11.99 mI U/mL Blood Venous blood specimen / Unknown 03/25/2025 8:14 AM EDT 03/25/2025 2:09 PM EDT us Tiffany Morales MD LAB BLOOD ORDERABLES Final Result Performing Organization Address [facility] de Phone Number [facility] [address] [place] [phone] * (ABNORMAL) Lipid Panel, Standard (03/25/2025 8:14 AM EDT) Triglycerides 80 <150 mg/dL [facility] Comment:Desirable Triglyceri de: less than 150 mg/dLBorderline High Triglyceride 150-199 mg/dLHigh Triglyceride: 200-499 mg/dLVery High Triglyceride: greater than or equal to 5OO mg/dL Cholesterol 165 <200 mg/dL [facility] Comment:Desirable Cholestero l: less than 200 mg/dLBorderline High Cholesterol: 200-239 mg/dLHigh Cholesterol: greater than 239 mg/dL LDL Cholesterol Calculated 109(H) <100 mg/dL [facility] Comment:Desirable LDL: less than 100 mg/dLNear Optimal/Above Optimal LDL: 110- 129 mg/dLBorderline High LDL: 130-159 mg/dLHigh LDL: 160-189 mg/dLVery High LDL: greater than or equal to 190 mg/dL HDL Cholesterol 40(L) >40 mg/dL [facility] Comment:Desirable HDL: great er than 40 mg/dL Note: This HDL assay may give artificially low results in patients with liver disease. Blood Venous blood specimen / Unknown 03/25/2025 8:14 AM EDT 03/25/2025 2:11 PM EDT Tiffany Morales MD LAB BLOOD ORDERABLES Final Result [facility] [address] [place] [phone] [phone] * (ABNORMAL) Comprehensive Metabolic Panel (03/25/2025 8:14 AM EDT) Sodium 142 135 - 145 mmol/L [facility] Potassium 3.7 3.3 - 5.1 mmol/L [facility] Chloride 108 96 - 108 mmol/L [facility] Carbon Dioxide 27 22 - 29 mmol/L [facility] Anion Gap 11(L) 12 - 20 [facility] Urea Nitrogen (BUN) 12 9 - 16 mg/dL [facility] Creatinine, Serum 0.91 0.5 - 1.4 mg/dL [facility] Estimated Glomerular Filt Rate >60 [facility] Comment:Chronic Kidney Disea se: Estimated GFR < 60 mL/min/1.26g7Lvljtg Kidney Disease: Estimated GFR < 15 mL/min/1.73m2 Glucose 85 60 - 115 mg/dL [facility] Calcium 8.6 8.4 - 10.2 mg/dL [facility] Bilirubin, Total 0.7 0.0 - 1.0 mg/dL [facility] Aspartate Amino Transferase 21 5 - 31 U/L [facility] Alanine Aminotransferase 12 0 - 31 U/L [facility] Total Protein 6.3(L) 6.5 - 8.0 g/dL [facility] Albumin Level 3.9 3.5 - 5.0 g/dL [facility] Alkaline Phosphatase 74 39 - 117 U/L [facility] Blood Venous blood specimen / Unknown 03/25/2025 8:14 AM EDT 03/25/2025 2:11 PM EDT Result [facility] Tiffany Morales MD LAB BLOOD ORDERABLES Final Result [facility] [address] [place] [phone] * POCT Rapid Covid-19 BinaxNOW (03/06/2025 9:19 AM EDT) [facility] Rapid COVID Ag Negative QC Media Lot # [id number] Lot# Expiration Date [id number] Swab 03/06/2025 9:19 AM EDT Result [facility] POINT OF CARE TEST ENTER/ EDIT ORDERABLES Final Result * POCT Rapid Strep A OSOM (03/06/2025 9:19 AM EDT) [facility] Rapid Strep A Screen Negative Negative, None Detected QC Media Lot # [id number] Lot# Expiration Date [id number] Swab 03/06/2025 9:19 AM EDT Result [facility] POINT OF CARE TEST ENTER/ EDIT ORDERABLES Final Result * POCT Rapid Influenza B OSOM (03/06/2025 9:18 AM EDT) [facility] Rapid Influenza B Ag Negative Negative, Indeterminate QC Media Lot # [id number] Lot# Expiration Date [id number] Swab 03/06/2025 9:18 AM EDT Result [facility] POINT OF CARE TEST ENTER/ EDIT ORDERABLES Final Result * POCT Rapid Influenza A OSOM (03/06/2025 9:18 AM EDT) [facility] Rapid Influenza A Ag Negative Negative, Indeterminate QC Media Lot # [id number] Lot# Expiration Date [id number] Swab Nasopharyngeal structure / Unknown 03/06/2025 9:18 AM EDT [facility] POINT OF CARE TEST ENTER/ EDIT ORDERABLES Final Result * Chlamydia/N. Gonorrhoeae RNA, TMA, Urogenitial (03/05/2025 3:00 PM EDT) CT PCR NOT DETECTED Not Detect. [facility] Comment:A not detected test result does [...] psychologicalconsequences. NG PCR NOT DETECTED Not Detect. [facility] Comment:A not detected test result does [...] lead to adverse medical, social or psychologicalconsequences. 03/05/2025 3:00 PM EDT 03/05/2025 7:07 PM EDT Tiffany Morales MD LAB MICROBIOLOGY - GENERAL ORDERABLES Final Result Performing Organization Address City/[facility]/ZIP Co de Phone Number [facility] [address] [place] [phone] * Urinalysis w/reflex microscopic (03/05/2025 11:35 AM EDT) Color Urine Yellow [facility] Appearance Urine Turbid [facility] PH 5.5 5.0 - 9.0 [facility] Glucose Urine UA Negative Negative mg/dL [facility] Urine Blood Negative Negative [facility] Specific [place] - Urine 1.025 1.005 - 1.025 [facility] Urine Protein Negative Neg-Trace mg/dL [facility] Urine Ketones Negative Negative mg/dL [facility] Nitrite Urine Negative Negative [facility] Leukocyte Esterase Urine Negative Negative [facility] Urine (Urine, Random) 03/05/2025 11:35 AM EDT 03/05/2025 2:11 PM EDT Narrative [facility] - 03/05/2025 2:20 PM EDT [id number], Clean Catch us Tiffany Morales MD LAB URINE ORDERABLES Final Result Performing Organization Address [facility] Co de Phone Number [facility] [address] [place] [phone] * Hepatitis C Antibody with Reflex to HCV, RNA, Quantitative, Real-Time PCR (03/05/2025 11:21 AM EDT) Hepatitis C Antibody Nonreactive Nonreactive [facility] Comment:Antibodies to HCV no t detected; does not exclude early acuteHCV infection. Blood Venous blood specimen / Unknown 03/05/2025 11:21 AM EDT 03/05/2025 2:00 PM EDT Tiffany Morales MD LAB BLOOD ORDERABLES Final Result Performing Organization Address [facility] Co de Phone Number [facility] [address] [place] [phone] [phone] * RPR (Monitor) with Reflex to??Titer (03/05/2025 11:21 AM EDT) RPR (Monitor) w/Refl Titer NON-REACTI VE NON-REACT NAEEM [facility] Comment:THIS TEST WAS PERFOR MED AT:[id number] [place] [phone] PRITCHARD MD Rapid Plasma Reagin Ab Titer TNP [facility] Blood Venous blood specimen / Unknown 03/05/2025 11:21 AM EDT 03/05/2025 2:00 PM EDT us Tiffany Morales MD LAB BLOOD ORDERABLES Final Result Performing Organization Address [facility] Co de Phone Number [facility] [address] [place] [phone] * HIV-1/2 Antigen and Antibodies, Fourth Generation, with Reflexes (03/05/2025 11:21 AM EDT) HIV AB/AG Nonreactive Nonreactive [facility] Comment:HIV-1 p24 Ag and/or HIV-1/HIV-2 Ab not detected.A test result that is nonreactive does not exclude thepossibility of exposure to or infection with HIV-1 and/orHIV-2. Nonreactive results in this assay for individualswith prior exposure to HIV-1 and/or HIV-2 may be due toantigen and antibody levels that are below the limit ofdetection of this assay.The Grabbitnisurespot HIV Ag/Ab Combo assay result andsupplemental assay results should be interpreted inconjunction with the patient's clinical presentation,history and other laboratory results. If the results areinconsistent with clinical evidence, additional testing issuggested to confirm the result. Blood Venous blood specimen / Unknown 03/05/2025 11:21 AM EDT 03/05/2025 2:00 PM EDT us Tiffany Morales MD LAB BLOOD ORDERABLES Final Result [facility] [address] [place] [address] [phone] * ECG 12 lead (02/27/2025 5:19 PM EDT) Narrative Tiffany Morales MD - 02/27/2025 5:19 PM EDT Heart rate 52 bpm. Russell -4 degrees. Sinus rhythm. RR' in V2. Minor inferior repolarization disturbance. No sign of left atrial enlargement. No sign of hypertrophy. No ST elevation or ST depression us Tiffany Morales MD ECG ORDERABLES Final Resul t * BI Mammogram Screening Tomosynthesis Bilateral (04/10/2024 2:40 PM EDT) Anatomical Region Laterality Modality Breast Bilateral Mammography 04/10/2024 2:40 PM EDT Narrative 04/22/2024 4:19 PM EST [address] [place] [address] Mammography Report Signed Patient: Abbie Salas MR#: [id number] : 1980 Acct:[id number] Age/Sex: 44 / F ADM Date: 04/10/24 Loc: HO.MAMMO Attending Dr: Tiffany Morales MD Ordering Physician: Tiffany Morales MD Results: 1 Negative Date of Service: 04/10/24 Follow Up: 1 Year From [facility] Mammogram Procedure(s): MM tomosynthesis screening BI Accession Number(s): [id number] cc: Tiffany Morales MD EXAMINATION: MM SCREENING [...] 04/22/24 1615 DD/ 1440 TD/TT: 04/10/24 1440 Engine Lathe Tender: Procedure Note Donotuseinterpreter, Image - 04/22/2024 [facility] [address] [place] [address] Mammography Report Signed Patient: Scott Salas#: [id number] : 1980Acct:[id number] Age/Sex: 44 / FADM Date: 04/10/24 Loc: HO.MAMMO Attending Dr: Tiffany Morales MD Ordering Physician: Tiffany Morales MDResults: 1 Negative Date of Service: 04/10/24Follow Up: 1 Year From [facility] Procedure(s): MM tomosynthesis screening BI Accession Number(s): [id number] cc: Tiffany Morales MD EXAMINATION: MM SCREENING [...] 04/22/24 1615 DD/ 1440 TD/TT: 04/10/24 1440 Engine Lathe Tender: Tiffany Morales MD IMG BI PROCEDURES Edited Re sult - Final * Thinprep TIS PAP And HPV mRNA E6/E7, CT/NG, TRICH (06/11/2022 6:22 AM EST) Clinical Information: None given [facility] LMP: NONE GIVEN [facility] Prev. PAP: NONE GIVEN [facility] Prev. BX: NONE GIVEN [facility] SOURCE: None given [facility] Statement Of Adequacy: [facility] Comment: Satisfactory for evaluation. Endocervical/transformation zone component absent. Age and/or menstrual status not provided Interpretation/Re sult: Negative for intraepithelial lesion or malignancy. [facility] COMMENT: This Pap test has been evaluated with computer assisted technology. [facility] Answering Service Telephone Operator: Lotus shrestha [employer] Comment: JXM, CT(ASCP) CT screening location: [place] [address] (Always Message) [employer] Comment: EXPLANATORY NOTE: The Pap is a [...] HPV nRNA E6/E7 Not Detected Not Detected [facility] Comment: Methodology: Fisher Lobster-Mediated Amplification This assay detects E6/E7 viral messenger RNA (mRNA) from 14 high-risk HPV types (16,18,31,33,35,39,45,51,52,56,58,59,66,68). Cervical sources are required for HPV testing. If a vaginal source from a patient who has had a total hysterectomy with removal of cervix was submitted, please contact the testing laboratory for alternative testing options. For additional information, please refer to http://Apmetrix/faq/PAV931p4 (This link if provided for information/ educational purposes only.) Chlamydia trachomatis RNA, TMA, Urogenital NOT DETECTED NOT DETECTED [facility] Neisseria gonorrhoeae RNA, TMA, Urogenital NOT DETECTED NOT DETECTED [facility] Comment [facility] Comment: The analytical performance characteristics of this assay, when used to test SurePath(TM) specimens have been determined by [facility]. The modifications have not been cleared or approved by the FDA. This assay has been validated pursuant to the CLIA regulations and is used for clinical purposes. For additional information, please refer to https://Apmetrix/faq/OAQ454 (This link is being provided for information/ educational purposes only.) Trichomonas vaginalis, QL, TMA, PAP Vial NOT DETECTED NOT DETECTED [facility] Comment: The analytical performance characteristics of this assay have been determined by [facility] [facility]. The modifications have not been cleared or approved by the FDA. This assay has been validated pursuant to the CLIA regulations and is used for clinical purposes. For additional information, please refer to http://8thBridge.Run3D/ faq/Trichomonastma (This link is being provided for information/ educational purposes only.) 06/08/2022 1:1 3 PM EST Narrative [facility] - 06/11/2022 6:22 AM EST FASTING: UNKNOWN Clarissa Bush [facility] PATH[facility] ORDERABLES Final Result [facility] [address] [facility] [place] [address] [facility] [address] [facility], ([address]) [place] [address] from Last 3 Months or Most Recently Relevant to Health Maintenance Insurance [facility] , [address] [place] [address] HSN PARTIAL DENTAL - HSN PARTIAL (MEDICAID) Care Teams Airport Operations Supervisor Relationship Specialty Start Date End Date Tiffany Morales MD [address] [place] [address] PCP - General Internal Medicine 07/02/14
--- OUTSIDE RECORDS SUMMARY | 2025-04-30 17:43 | XMS_ITS | Encounter Summary ---
Author Organization [employer] Address [address] [place] [address] 7 [place] [address] Care Team Providers Care Petroleum Supply Specialist Name Role Phone Tiffany Morales MD Primary Care Provider [phone] Encounter Details Date Type Department Care Team (Late st Contact Info) Description 04/14/2023 Orders Only [facility] MED & PEDS [address] [place], [place] [phone] Tiffany Morales MD 505 [place] [address] Herpes (Primary Dx) Social History Tobacco Use Types Packs/Day Years Used Date Smoking Tobacco: Never Smokeless Tobacco: Never Housing Stability Answer Date Recorded What is your housing situation today? I do not have housing (Staying with others, in a hotel, in a halfway, living outside on the street, on a [...] t he electric, gas, oil or water [employer] threatened to shut off services in your [...] complication documented in this encounter Care Teams Petroleum Supply Specialist Relationship Specialty Start Date End Date Tiffany Morales MD [address] [place] [address] PCP - General Internal Medicine 07/02/14 documented as of this encounter
--- OUTSIDE RECORDS SUMMARY | 2025-04-30 17:43 | XMS_ITS | Encounter Summary ---
Author Organization [employer] Address [address] [facility] 7t [place] [address] Care Team Providers Care Legal Intern Name Role Phone Tiffany Morales MD Primary Care Provider [phone] Encounter Details Date Type Department Care Team (Late st Contact Info) Description 02/09/2024 Orders Only [facility] [address] [place] [address] Tiffany Morales MD [address] [place] [address] Social History Tobacco Use Types Packs/Day Years [...] documented as of this encounter Care Teams Legal Intern Relationship Specialty Start Date End Date Tiffany Morales MD 505 [place] [address] PCP - General Internal Medicine 07/02/14 documented as of this encounter
--- OUTSIDE RECORDS SUMMARY | 2025-04-30 17:43 | XMS_ITS | Encounter Summary ---
Author Organization [employer] [facility] Address [address] [place] [address] Care Team Providers Care Rehabilitation Attendant Name Role Phone Tiffany Morales MD Primary Care Provider [phone]- [phone] Encounter Details Date Type Department Care Team (Latest Contact Info) Description 11/20/2018 Abstract [facility] CONVERSIONS Dental, Provider, DDS Social History [...] on filedocumented in this encounter Care Teams Rehabilitation Attendant Relationship Specialty Start Date End Date Tiffany Morales MD [address] [place] [address] PCP - General Internal Medicine 07/02/14 documented as of this encounter
--- OUTSIDE RECORDS SUMMARY | 2025-04-30 17:43 | XMS_ITS | Encounter Summary ---
Author Organization [employer] Address [address] [place] [address] 7 [place] [address] Care Team Providers Care Anesthesia Assistant Name Role Phone Tiffany Morales MD Primary Care Provider [phone] Reason for Visit * Reason Comments Med Refill Encounter Details Date Type Department Care Team ([facility] st Contact Info) Description 04/14/2023 Refill [facility] MED & PEDS [address] [place], [place] [phone] Tiffany Morales MD 505 [place] [address] Social History Tobacco Use Types Packs/Day Years [...] on filedocumented in this encounter Care Teams Anesthesia Assistant Relationship Specialty Start Date End Date Tiffany Morales MD [address] [place] [address] PCP - General Internal Medicine 07/02/14 documented as of this encounter
--- OUTSIDE RECORDS SUMMARY | 2025-04-30 17:43 | XMS_ITS | Encounter Summary ---
Author Organization [employer] Address [address] [place] [address] 7 [place] [address] Care Team Providers Care Brokerage Purchase And Sale Clerk Name Role Phone Tiffany Morales MD Primary Care Provider [phone] Encounter Details Date Type Department Care Team (Late st Contact Info) Description 01/27/2025 Orders Only [facility] MED & PEDS 505 [place], [place] [phone] Tiffany Morales MD 505 [place] [address] Bacterial vaginosis (Primary Dx) Social History Tobacco [...] documented as of this encounter Care Teams Brokerage Purchase And Sale Clerk Relationship Specialty Start Date End Date Tiffany Morales MD [address] [place] [address] PCP - General Internal Medicine 07/02/14 documented as of this encounter
--- OUTSIDE RECORDS SUMMARY | 2025-04-30 17:43 | XMS_ITS | Encounter Summary ---
Author Organization [employer] Address [address] [place] [address] 7 [place] [address] Care Team Providers Care Biomed Tech Name Role Phone Tiffany Morales MD Primary Care Provider [phone] Encounter Details Date Type Department Care Team (Late st Contact Info) Description 03/05/2024 Orders Only [facility] MED & PEDS 505 [place], [place] [phone] Tiffany Morales MD 505 [place], [place] [phone] BV (bacterial vaginosis) (Primary Dx) Social History [...] AM EDT Narrative 03/18/2024 12:48 PM EDT [place] [address] CT Scan Report Signed Patient: Abbie Salas MR#: [id number] : 1980 Acct:[id number] Age/Sex: 44 / F ADM Date: 03/18/24 Loc: HO.ED Attending Dr: Ordering Physician: Fuentes Arroyo Date of Service: 03/18/24 Procedure(s): CT cervical spine wo IV con Accession Number(s): [id number] cc: Tiffany Morales MD; Fuentes Arroyo EXAMINATION: [...] by Tavon Cotton Jr, in OV> 03/18/24 1245 DD/ 1139 TD/TT: 03/18/24 1205 Biopsychologist: RAMOS Procedure Note Donotuseinterpreter, Image - 03/18/[address] [place] [address] [address] Scan Report Signed Patient: Scott Salas#: [id number] : 1980Acct:[id number] Age/Sex: 44 / FADM Date: 03/18/24 Loc: HO.ED Attending Dr: Ordering Physician: Fuentes Arroyo Date of Service: 03/18/24 Procedure(s): CT cervical spine wo IV con Accession Number(s): [id number] cc: Tiffany Morales MD; Fuentes Arroyo EXAMINATION: [...] 03/18/24 1245 DD/ 1139 TD/TT: 03/18/24 1205 Biopsychologist: RAMOS [facility] External Provider IMG CT PROCEDURES Final Result * CT Head w/o Contrast (03/18/2024 11:27 AM EDT) Anatomical Region Laterality Modality Head, Neck Computed Tomogra phy 03/18/2024 11:2 7 AM EDT Narrative 03/18/2024 12:41 PM EDT [address] [address] [address] Scan Report Signed Patient: Abbie Salas MR#: [id number] : 1980 Acct:[id number] Age/Sex: 44 / F ADM Date: 03/18/24 Loc: HO.ED Attending Dr: Ordering Physician: Fuentes Arroyo Date of Service: 03/18/24 Procedure(s): CT head/brain wo IV con Accession Number(s): [id number] cc: Tiffany Morales MD; Fuentes Arroyo EXAMINATION: [...] Tavon Cotton Jr, DO in OV> 03/18/24 1238 DD/ 1127 TD/TT: 03/18/24 1205 Biopsychologist: CB Procedure Note Donotuseinterpreter, Image - 03/18/[address] [address] [address] Scan Report Signed Patient: Scott Salas#: [id number] : 1980Acct:[id number] Age/Sex: 44 / FADM Date: 03/18/24 Loc: HO.ED Attending Dr: Ordering Physician: Fuentes Arroyo Date of Service: 03/18/24 Procedure(s): CT head/brain wo IV con Accession Number(s): [id number] cc: Tiffany Morales MD; Fuentes Arroyo EXAMINATION: [...] 03/18/24 1238 DD/ 1127 TD/TT: 03/18/24 1205 Biopsychologist: RAMOS [facility] External Provider IMG CT PROCEDURES Final Result documented in this encounter Visit Diagnoses Diagnosis BV (bacterial vaginosis)- Primary Unspecified vaginitis and vulvovaginitis documented in this encounter Additional Health Concerns Assessment Noted Time PHQ-9 Depression Total Score: 0 02/02/20 24 1:47 PM EDT documented as of this encounter Care Teams Biomed Tech Relationship Specialty Start Date End Date Tiffany Morales MD [address] [place] [address] PCP - General Internal Medicine 07/02/14 documented as of this encounter
--- OUTSIDE RECORDS SUMMARY | 2025-04-30 17:43 | XMS_ITS | Encounter Summary ---
Author Organization [employer] Address [address] [place] [address] Care Team Providers Care Office Chair Assembler Name Role Phone Tiffany Morales MD Primary Care Provider [phone] Reason for Referral * Imaging (Routine) - Authorized Specialty Diagnoses / Procedures Referred By Contac t Referred To Contact Cardiology Diagnoses Other chest pain Procedures Transthoracic Echo (TTE) Complete Tiffany Morales MD [address] [place] [address] Phone: tel: fax: [address] Phone: tel: fax: Referral ID Status Reason Start Date Expiration Date Visits Requested Visits Authorized [id number] Authorized Perform Procedure 02/26/2025 02/26/2026 1 1 Encounter Details Date Type Department Care Team (Late st Contact Info) Description 02/26/2025 Orders Only [facility] CH[facility] MED & PEDS [address] [place] [address] Tiffany Morales MD [address] [place], [place] [phone] Other chest pain (Primary Dx); Sore throat Social History Tobacco Use Types Packs/Day Years [...] chest pain Expected: 03/05/2025 (Approximate), Expires: 03/05/2026 Trichomonas vaginalis RNA, Qualitative, TMA, [facility] Routine Other chest pain Expected: 03/05/2025, Expires: 03/05/2026 documented as of this encounter Procedures Procedure Name Priority Date/Time Associated Diagnosis Comments URINALYSIS WITH REFLEX MICROSCOPIC Routine 03/05/2025 11:35 AM EDT Other chest pain HEPATITIS C AB W/REFL TO HCV RNA, QN, PCR Routine 03/05/2025 11:21 AM EDT Other chest pain RPR (MONITOR) W/REFL TITER Routine 03/05/2025 11:21 AM EDT Other chest pain HIV 1/2 ANTIGEN/ANTIBODY, FOURTH GENERATION W/RFL Routine 03/05/2025 11:21 AM EDT Other chest pain documented in this encounter Results * Urinalysis w/reflex microscopic (03/05/2025 11:35 AM EDT) Color Urine Yellow [facility] Appearance Urine Turbid [facility] PH 5.5 5.0 - 9.0 [facility] Glucose Urine UA Negative Negative mg/dL [facility] Urine Blood Negative Negative [facility] Specific [place] - Urine 1.025 1.005 - 1.025 [facility] Urine Protein Negative Neg-Trace mg/dL [facility] Urine Ketones Negative Negative mg/dL [facility] Nitrite Urine Negative Negative [facility] Leukocyte Esterase Urine Negative Negative [facility] Urine (Urine, Random) 03/05/2025 11:35 AM EDT 03/05/2025 2:11 PM EDT Narrative [facility] - 03/05/2025 2:20 PM EDT [id number], Clean Catch us Tiffany Morales MD LAB URINE ORDERABLES Final Result [facility] [address] [place] [phone] * RPR (Monitor) with Reflex to??Titer (03/05/2025 11:21 AM EDT) RPR (Monitor) w/Refl Titer NON-REACTI VE NON-REACT NAEEM [facility] Comment:THIS TEST WAS PERFOR MED AT:[facility] [place] [phone] PRITCHARD MD Rapid Plasma Reagin Ab Titer TNP [facility] Blood Venous blood specimen / Unknown 03/05/2025 11:21 AM EDT 03/05/2025 2:00 PM EDT Tiffany Morales MD LAB BLOOD ORDERABLES Final Result Performing Organization Address [facility]/ZIP Co de Phone Number [facility] [address] [place] [phone] * Hepatitis C Antibody with Reflex to HCV, RNA, Quantitative, Real-Time PCR (03/05/2025 11:21 AM EDT) Pathologist [facility] Hepatitis C Antibody Nonreactive Nonreactive [facility] Comment:Antibodies to HCV no t detected; does not exclude early acuteHCV infection. Blood Venous blood specimen / Unknown 03/05/2025 11:21 AM EDT 03/05/2025 2:00 PM EDT us Tiffany Morales MD LAB BLOOD ORDERABLES Final Result Performing Organization Address [facility]/ZIP Co de Phone Number [facility] [address] [place] [phone] * HIV-1/2 Antigen and Antibodies, Fourth Generation, with Reflexes (03/05/2025 11:21 AM EDT) HIV AB/AG Nonreactive Nonreactive [facility] Comment:HIV-1 p24 Ag and/or HIV-1/HIV-2 Ab not detected.A test result that is nonreactive does not exclude thepossibility of exposure to or infection with HIV-1 and/orHIV-2. Nonreactive results in this assay for individualswith prior exposure to HIV-1 and/or HIV-2 may be due toantigen and antibody levels that are below the limit ofdetection of this assay.[employer] Alinity HIV Ag/Ab Combo assay result andsupplemental assay results should be interpreted inconjunction with the patient's clinical presentation,history and other laboratory results. If the results areinconsistent with clinical evidence, additional testing issuggested to confirm the result. Blood Venous blood specimen / Unknown 03/05/2025 11:21 AM EDT 03/05/2025 2:00 PM EDT us Tiffany Morales MD LAB BLOOD ORDERABLES Final Result [facility] [address] [place] [address] [phone] documented in this encounter Visit Diagnoses Diagnosis Other chest pain- Primary Sore throat Acute pharyngitis documented in this encounter Additional Health Concerns Assessment Noted Time PHQ-9 Depression Total Score: 0 02/02/20 24 1:47 PM EDT documented as of this encounter Care Teams Office Chair Assembler Relationship Specialty Start Date End Date Tiffany Morales MD [address] [place] [address] PCP - General Internal Medicine 07/02/14 documented as of this encounter
--- OUTSIDE RECORDS SUMMARY | 2025-04-30 17:43 | XMS_ITS | Encounter Summary ---
Author Organization [employer] Address [address] [place] [address] [place] [address] Care Team Providers Care Education Program Manager Name Role Phone Tiffany Morales MD Primary Care Provider [phone] Reason for Visit * Reason Comments Med Refill Encounter Details Date Type Department Care Team ([facility] st Contact Info) Description 10/25/2022 Refill [facility]EDS [address] [place] [address] Tiffany Morales MD [address] [place] [address] Essential (primary) hypertension Social History Tobacco Use [...] hypertension documented in this encounter Care Teams Education Program Manager Relationship Specialty Start Date End Date Tiffany Morales MD [address] [place] [address] PCP - General Internal Medicine 07/02/14 documented as of this encounter
--- OUTSIDE RECORDS SUMMARY | 2025-04-30 17:43 | XMS_ITS | Encounter Summary ---
Author Organization [employer] Address [address] [place] [address] Care Team Providers Care Quail Farmer Name Role Phone Tiffany Morales MD Primary Care Provider [phone] Reason for Referral * Imaging (Routine) - Closed Specialty Diagnoses / Procedures Referred By Contdiandra menjivar Referred To Contact Diagnoses Right flank pain Procedures US Renal Complete Tiffany Morales MD [address] [place] [address] Phone: tel: fax: [address] Phone: tel: fax: Referral ID Status Reason Start Date Expiration Date Visits Re quested Visits Authorized [id number] Closed 10/17/2022 04/15/2023 1 1 Encounter Details Date Type Department Care Team (Late st Contact Info) Description 10/17/2022 Orders Only [facility] MED & PEDS [address] [place] [address] Tiffany Morales MD [address] [place] [address] Right flank pain (Primary Dx) Social History [...] site documented in this encounter Care Teams Quail Farmer Relationship Specialty Start Date End Date Tiffany Morales MD [address] [place] [address] PCP - General Internal Medicine 07/02/14 documented as of this encounter
--- OUTSIDE RECORDS SUMMARY | 2025-04-30 17:43 | XMS_ITS | Encounter Summary ---
Author Organization [employer] Address [address] [place] [address] 7 [place] [address] Care Team Providers Care Learning Technologist Name Role Phone Tiffany Morales MD Primary Care Provider [phone]- [phone] Encounter Details Date Type Department Care Team (Late st Contact Info) Description 05/24/2023 Orders Only [facility] MED & PEDS [address] [place], [place] [phone] Tiffany Morales MD [address] [place] [address] Acute pain of right knee (Primary Dx); [...] knee documented in this encounter Care Teams Learning Technologist Relationship Specialty Start Date End Date Tiffany Morales MD [address] [place] [address] PCP - General Internal Medicine 07/02/14 documented as of this encounter
--- OUTSIDE RECORDS SUMMARY | 2025-04-30 17:43 | XMS_ITS | Encounter Summary ---
Author Organization [employer] Address [address] [place] [address] 7 [place] [address] Care Team Providers Care Horse Race Timer Name Role Phone Tiffany Morales MD Primary Care Provider [phone] Encounter Details Date Type Department Care Team (Late st Contact Info) Description 02/01/2024 Orders Only [facility] MED [facility] PEDS [address] [place], [place] [phone] Tiffany Morales MD [address] [place] [address] Subconjunctival hemorrhage of right eye (Primary Dx) [...] Primary documented in this encounter Care Teams Horse Race Timer Relationship Specialty Start Date End Date Tiffany Morales MD [address] [place] [address] PCP - General Internal Medicine 07/02/14 documented as of this encounter
--- OUTSIDE RECORDS SUMMARY | 2025-04-30 17:43 | XMS_ITS | Encounter Summary ---
Author Organization [facility] Address [address] [place] [address] 7 [place] [address] Care Team Providers Care Clinical Review Nurse Name Role Phone Tiffany Morales MD Primary Care Provider [phone]- [phone] Encounter Details Date Type Department Care Team (Late st Contact Info) Description 07/22/2022 Orders Only [facility] MEDICINE [address] [place], [place] [phone] Tiffany Morales MD [address] [place], [place] [phone] Candidiasis (Primary Dx) Social History Tobacco Use [...] Primary documented in this encounter Care Teams Clinical Review Nurse Relationship Specialty Start Date End Date Tiffany Morales MD [address] [place] [address] PCP - General Internal Medicine 07/02/14 documented as of this encounter
== END 2025-04-30 14:19 | disposition home or self-care (01) ==
LOC: HO.MAMMO 14:18
PROVIDERS: PCP Internal Medicine; Visit Provider Internal Medicine
DX: Z12.31 Encounter for screening mammogram for malignant neoplasm of breast (principal)
CPT/HCPCS: 77063; 77067

== ENCOUNTER → 2025-04-30 14:30 | Outpatient (BNV) | payer OTHER, SELFPAY | PROVIDERS: PCP Internal Medicine; Visit Provider Internal Medicine | DX: Z12.31 Encounter for screening mammogram for malignant neoplasm of breast (principal) | CPT/HCPCS: 77063; 77067 ==

== ENCOUNTER → 2025-05-05 14:56 | Outpatient (REF) | payer OTHER, SELFPAY ==
--- NOTE | 2025-05-05 15:05 | CA_ITS ---
Transthoracic Echocardiogram Patient (Last, First, Middle): Abbie Salas, Gender: F Date of : 1980 Age: 45 Procedure Date: 05/05/2025 Procedure Type: Transthoracic Echocardiogram Location: OP Height: 160.02 cm Weight: 81.65 kg BSA: 1.85 m2 Heart Rate: bpm BP: 122 / 78 mmHg Effervescent Salts Compounder: Referring MD: Tiffany Morales MD Symptoms: R07.9 CHEST PAIN Study Quality: Good ECG Rhythm: Sinus Conclusions: - The left ventricular systolic function is normal. The calculated ejection fraction is 59% by biplane method. - No obvious valvular pathology seen on this study. Findings Left Ventricle Normal left ventricular cavity size. There is mildly increased left ventricular wall thickness. The left ventricular systolic function is normal. The calculated ejection fraction is 59% by biplane method. There is no evidence of regional wall motion abnormalities. Diastolic function is normal for age. Right Ventricle Normal right ventricular cavity size and systolic function. Atria Both atria are normal in size. Aortic Valve There is a normal trileaflet aortic valve. There is no aortic valve stenosis. There is no aortic valve regurgitation. Mitral Valve The mitral valve appears normal. There is no mitral valve regurgitation. There is no mitral valve stenosis. Pulmonic Valve There is trace pulmonic valve regurgitation. Tricuspid Valve Normal tricuspid valve structure. There is trace tricuspid valve regurgitation. There is no evidence of pulmonary hypertension. Great Vessels The asc aorta is normal in size. Venous The inferior vena cava is normal in size and collapses greater than 50% with inspiration. Pericardium/Pleural There is no evidence of pericardial effusion. Prior Study Comparison No significant change compared to prior study dated: 05/13/2020. Recommendations, Care & Conclusions No obvious valvular pathology seen on this study. Measurements 2D Linear Measurements IVSd: 1.13 0.6-0.9/0.6-1.0 cm LVIDd: 4.46 3.9-5.3/4.2-5.9 cm LVIDd Index: 2.41 2.4-3.2/2.2-3.1 cm/m2 LVIDs: 2.80 2.0-3.6 cm LVPWd: 1.13 0.7-1.1 cm Ao Root: 3.00 2.1-3.5 cm LA Diam: 3.90 2.7-3.8/3.0-4.0 cm LAIDs Index: 2.11 1.5-2.3 cm/m2 LV Mass: 223.34 67-162/88-224 g LV Mass Index: 120.72 43-95/49-115 g/m2 LVOT Diam: 2.20 3.0+(-)1.3 cm 2D Systolic Function EF 4C: 62.90 >55% EF 2C: 56.10 >55% EF BiP: 58.90 >55% Mitral Valve MV Pk E: 0.39 MV PK A: 0.62 MV Decel Time: 231.00 E/A: 0.60 E'Lateral: 9.90 E'Medial: 6.42 E/E' Med: 6.10 E/E' Lat: 4.00 PHT: 68.00 MVA PHT: 3.24 Decel Hanson: 2.97 Aortic Valve AoV Pk Scott: 1.35 AoV Mn Scott: 0.89 AoV VTI: 0.28 AoV Pk Grad: 7.00 Aov Mn Grad: 4.00 AICHA Cont.VTI: 2.33 LVOT LVOT Pk Scott: 0.83 LVOT Mn Scott: 0.54 LVOT VTI: 0.17 LVOT Pk Grad: 3.00 LVOT Mn Grad: 2.00 LVOT Diam: 2.20 LVOT Area: 3.80 Diastolic Function MV Pk E: 0.39 MV Pk A: 0.62 E/A: 0.60 E'Medial: 6.42 E/E' Med: 6.10 E' Laterial: 9.90 E/E' Lat: 4.00 Right Ventricle TAPSE (mm): 19.00 TVS' Scott: 10.00 Tricuspid Valve TR Pk Scott: 2.25 TR Pk Grad: 20.00 RA Press: 3.00 RVSP: 23.00 Great Vessels Aorta Ao Root-2D: 3.00 2.0-3.7 cm Ao Asc: 2.80 2.1-3.4 cm Pulmonary Valve PV Pk Scott: 0.88 Peak PV Grad: 3.00 Updated in Other Vendor System with Status of Final Dinh Orlando MD electronically signed on 05/05/2025 4:31:30 PM with status of Final
== END ==
LOC: HO.CARD 14:56
PROVIDERS: PCP Internal Medicine; Visit Provider Internal Medicine
DX: R07.89 Other chest pain (principal)
CPT/HCPCS: 93306

== ENCOUNTER → 2025-05-05 15:05 | Outpatient (BNV) | payer OTHER, SELFPAY | PROVIDERS: PCP Internal Medicine; Visit Provider Internal Medicine | DX: R07.9 Chest pain, unspecified (principal) | CPT/HCPCS: 93306 ==